=== PATIENT | male | born 1935 | race Caucasian/White ===

== ENCOUNTER 2017-06-19 07:28 | Inpatient (IN) | payer MEDICARE, OTHER ==
[~2017-06-19] VITALS: Ht 175.3 cm; Wt 90.8 kg
[2017-06-19] VITALS (8 sets, daily range): BP systolic 139–196; BP diastolic 66–110; PULSE 54–102; RESP 18–21; TEMP 97.5–97.9; O2SAT 95–97
[2017-06-19] MEDS ORDERED: ASPI-516 CHEW (07:47)
[2017-06-19] MEDS ORDERED: SPIR25TA PO (07:47)
[2017-06-19] MEDS ORDERED: SIMV20TA PO (07:47)
[2017-06-19] MEDS ORDERED: METO25TA3 PO (07:47)
[2017-06-19] MEDS ORDERED: METF500T PO (07:47)
[2017-06-19] MEDS ORDERED: BENI5TAB4 PO (07:48)
--- NOTE | 2017-06-19 08:11 | PD ---
HPI Chief Complaint: General Weakness Time Seen by Provider: 08:05 Travel History International Travel<30 days: No Contact w/Intl Traveler<30days: No Traveled to known affect area: No History of Present Illness HPI Patient presents to the emergency department complaining of "terrible night and could not sleep or breathe last night." Patient has sleep apnea but does not like the mask so he has not been using his CPAP machine. He denies fever, chills, nausea, vomiting, chest pain, edema. He reports a productive cough of white phlegm for "weeks." Also reporting shortness of breath. PFSH Past Medical History Cardiomyopathy: Yes Diabetes: Yes Patient Takes Glucophage: Yes (METFORMIN) Medical other: Yes (ENLARGED PROSTATE) Sleep Apnea: Yes Tetanus Vaccination: < 5 Years Past Surgical History Other Surgery: Yes (L EYE SX ) Social History Alcohol Use: Yes Tobacco Use: No Substance Use: No Allergies-Medications (Allergen,Severity, Reaction): Coded Allergies: lisinopril (Verified Allergy, Intermediate, Cough, 06/19/17) pioglitazone (Verified Allergy, Intermediate, Cough, 06/19/17) bee venom protein (honey bee) (Verified Allergy, Unknown, 06/19/17) Uncoded Allergies: ANT BITES (Adverse Reaction, Intermediate, 06/19/17) Reported Meds & Prescriptions Reported Meds & Active Scripts Active Reported Benicar (Olmesartan) 5 Mg Tab 5 Mg PO BID Spironolactone 25 Mg Tab 12.5 Mg PO DAILY Simvastatin 20 Mg Tab 20 Mg PO DAILY Metoprolol Tartrate 25 Mg Tab 12.5 Mg PO BID Metformin (Metformin HCl) 500 Mg Tab 500 Mg PO BIDPC Aspirin 81 Mg Chew 81 Mg CHEW DAILY Review of Systems Except as stated in HPI: all other systems reviewed are Neg Physical Exam Narrative GENERAL: No acute distress. SKIN: Focused skin assessment warm/dry. HEAD: Atraumatic. Normocephalic. EYES: Extra ocular muscles intact bilaterally.. No scleral icterus. No injection or drainage. ENT: No nasal bleeding or discharge. Mucous membranes pink and moist. NECK: Trachea midline. No JVD. CARDIOVASCULAR: Irreg rate and rhythm. No murmur appreciated. RESPIRATORY: No accessory muscle use. Coarse breath sounds upper lung gaona bilaterally. Breath sounds equal bilaterally. GASTROINTESTINAL: Abdomen soft, non-tender, nondistended. Hepatic and splenic margins not palpable. MUSCULOSKELETAL: No obvious deformities. No clubbing. No cyanosis. No edema. NEUROLOGICAL: Awake and alert. No obvious cranial nerve deficits. Motor grossly within normal limits. Normal speech. PSYCHIATRIC: Appropriate mood and affect; insight and judgment normal. Data Data Last Documented VS Vital Signs Date Time Temp Pulse Resp B/P (MAP) Pulse Ox O2 Delivery O2 Flow Rate FiO2 06/19/17 10:41 91 21 177/80 (112) 97 Nasal Cannula 2.00 06/19/17 07:38 97.7 Orders Orders Complete Blood Count With Diff (06/19/17 08:05) Comprehensive Metabolic Panel (06/19/17 08:05) B-Type Natriuretic Peptide (06/19/17 08:05) Act Partial Throm Time (Ptt) (06/19/17 08:05) Prothrombin Time / Inr (Pt) (06/19/17 08:05) Magnesium (Mg) (06/19/17 08:05) Ckmb (Isoenzyme) Profile (06/19/17 08:05) Troponin I (06/19/17 08:05) Iv Access Insert/Monitor (06/19/17 08:05) Electrocardiogram (06/19/17 08:05) Ecg Monitoring (06/19/17 08:05) Oximetry (06/19/17 08:05) Oxygen Administration (06/19/17 08:05) Chest, Single Ap (06/19/17 08:05) Sodium Chloride 0.9% Flush (Ns Flush) (06/19/17 08:15) D-Dimer (06/19/17 08:11) Labs Laboratory Tests Test 06/19/17 08:00 White Blood Count 10.4 TH/MM3 Red Blood Count 4.82 MIL/MM3 Hemoglobin 15.1 GM/DL Hematocrit 44.9 % Mean Corpuscular Volume 93.3 FL Mean Corpuscular Hemoglobin 31.3 PG Mean Corpuscular Hemoglobin Concent 33.5 % Red Cell Distribution Width 14.1 % Platelet Count 286 TH/MM3 Mean Platelet Volume 7.5 FL Neutrophils (%) (Auto) 67.7 % Lymphocytes (%) (Auto) 21.2 % Monocytes (%) (Auto) 7.2 % Eosinophils (%) (Auto) 3.0 % Basophils (%) (Auto) 0.9 % Neutrophils # (Auto) 7.1 TH/MM3 Lymphocytes # (Auto) 2.2 TH/MM3 Monocytes # (Auto) 0.8 TH/MM3 Eosinophils # (Auto) 0.3 TH/MM3 Basophils # (Auto) 0.1 TH/MM3 CBC Comment DIFF FINAL Differential Comment Prothrombin Time 10.0 SEC Prothromb Time International Ratio 1.0 RATIO Activated Partial Thromboplast Time 25.7 SEC D-Dimer Quantitative (PE/DVT) 0.31 MG/L FEU Blood Urea Nitrogen 30 MG/DL Creatinine 1.07 MG/DL Random Glucose 142 MG/DL Total Protein 7.1 GM/DL Albumin 3.5 GM/DL Calcium Level 9.0 MG/DL Magnesium Level 2.0 MG/DL Alkaline Phosphatase 141 U/L Aspartate Amino Transf (AST/SGOT) 21 U/L Alanine Aminotransferase (ALT/SGPT) 85 U/L Total Bilirubin 0.4 MG/DL Sodium Level 138 MEQ/L Potassium Level 5.0 MEQ/L Chloride Level 107 MEQ/L Carbon Dioxide Level 22.4 MEQ/L Anion Gap 9 MEQ/L Estimat Glomerular Filtration Rate 66 ML/MIN Total Creatine Kinase 38 U/L Troponin I LESS THAN 0.02 NG/ML B-Type Natriuretic Peptide 131 PG/ML MDM Medical Decision Making Medical Screen Exam Complete: Yes Emergency Medical Condition: Yes Interpretation(s) EKG: Sinus rhythm, PVCs, rate 91, right bundle branch block, right axis deviation Labs: Normal d-dimer, normal CBC, normal troponin, elevated BNP and BUN and ALT and alk phos Last Impressions Chest X-Ray 06/19/17 0805 Signed Impressions: Service Date/Time: June 08:51 - CONCLUSION: 1. Minimal basal atelectasis or scarring. No active disease. Mildly tortuous aorta. Alexys Aleman MD Differential Diagnosis Pulmonary edema, ACS, CHF, pneumonia, electrolyte abnormality, dysrhythmia, Narrative Course Patient presents to the emergency department complaining of difficulty breathing inability to sleep. Will check labs, chest x-ray, EKG. 1107: Patient will be admitted for dyspnea and also runs of V. tach in the emergency department that resolved spontaneously. Malu Barrett MD June 19, 2017 08:11
[2017-06-19] MEDS ORDERED: SODIUM CHLORIDE 0.9% FLUSH 10 ML FLUSH IVF PRN (08:15)
[2017-06-19 08:23] LABS: AUTOMATED NEUTROPHIL # 7.1 TH/MM3 (1.8-7.7); BASOPHIL # 0.1 TH/MM3 (0-0.2); BASOPHIL % 0.9 % (0.0-2.0); EOSINOPHIL # 0.3 TH/MM3 (0-0.4); HEMATOCRIT 44.9 % (39.0-51.0); HEMOGLOBIN 15.1 GM/DL (13.0-17.0); LYMPH % 21.2 % (9.0-44.0); LYMPHOCYTE # 2.2 TH/MM3 (1.0-4.8); MEAN CELL VOLUME 93.3 FL (80.0-100.0); MEAN CORPUSCULAR HEMOGLOBIN 31.3 PG (27.0-34.0); MEAN CORPUSCULAR HGB CONC 33.5 % (32.0-36.0); MEAN PLATELET VOLUME 7.5 FL (7.0-11.0); MONO % 7.2 % (0.0-8.0); MONOCYTE # 0.8 TH/MM3 (0-0.9); NEUT % 67.7 % (16.0-70.0); PLATELET COUNT 286 TH/MM3 (150-450); RED BLOOD COUNT 4.82 MIL/MM3 (4.50-5.90); RED CELL DISTRIBUTION WIDTH 14.1 % (11.6-17.2); WHITE BLOOD COUNT 10.4 TH/MM3 (4.0-11.0)
[2017-06-19 08:45] LABS: ALBUMIN 3.5 GM/DL (3.4-5.0); ALKALINE PHOSPHATASE 141 U/L (45-117); ALT (GPT) 85 U/L (12-78); AST (GOT) 21 U/L (15-37); BICARBONATE 22.4 MEQ/L (21.0-32.0); BLOOD UREA NITROGEN 30 MG/DL (7-18); CHLORIDE 107 MEQ/L (98-107); CREATININE 1.07 MG/DL (0.60-1.30); GLOMERULAR FILTRATION RATE 66 ML/MIN (>89); GLUCOSE,RANDOM 142 MG/DL (74-106); SODIUM (NA) 138 MEQ/L (136-145); TOTAL BILIRUBIN ADULT 0.4 MG/DL (0.2-1.0); TROPONIN I LESS THAN 0.02 NG/ML (0.02-0.05)
[2017-06-19 08:50] LABS: TOTAL PROTEIN 7.1 GM/DL (6.4-8.2)
--- NOTE | 2017-06-19 09:12 | RADRPT ---
EXAM DATE/TIME: 06/19/2017 08:51 [facility] COMPARISON: No previous studies available for comparison. INDICATIONS : Short of breath and difficulty breathing. MEDICAL HISTORY : None. SURGICAL HISTORY : None. ENCOUNTER: Initial ACUITY: 3 weeks PAIN SCORE: 0/10 LOCATION: Bilateral chest FINDINGS: A single view of the chest demonstrates the lungs to be symmetrically aerated without evidence of mas s, infiltrate or effusion. Minimal basal atelectasis. The cardiomediastinal contours are unremarkabl e. Osseous structures are intact. CONCLUSION: 1. Minimal basal atelectasis or scarring. No active disease. Mildly tortuous aorta. Alexys Aleman MD on June 19, 2017 at 9:09 Board Certified Radiologist. This report was verified electronically.
--- NOTE | 2017-06-19 12:12 | HHI.HP ---
[facility] Primary Care Physician Nghia Thomas MD Admission Diagnosis Dyspnea, Intermittent Vent Tachy Diagnoses: Chief Complaint: sob Travel History International Travel<30 Days: No Contact w/Intl Traveler <30 Da: No Traveled to Known Affected Are: No History of Present Illness This is an 82/M with h/o cardiomyopathy, COPD, DM, HTN, ? Cardiomyopathy and sleep apnea presenting with acute SOB. Per patient, he has not been feeling well since March and has been noticing lack of energy and chronic shortness of breath. He just moved from [place] over the winter to [place] and subsequently moved to [facility] last week. While he was in [place], he had multiple doctor visits done including with a record press supervisor who never came into a diagnostic conclusion but he was told that he has cardiomyopathy, COPD and sleep apnea. He has poor compliance with his CPAP. He has been chronically short of breath however last night, he was more short of breath than usual. There was no note of chest pain, dizziness, lightheadedness, fever, chills or sick contacts. He has a chronic cough which has not changed productive with white sputum. There is no bilateral lower extremity edema. He got better last night but this morning when he woke up, he became more short of breath again hence he decided to go to the hospital. There was still no note of chest pain or any other symptoms. While at the emergency department around 8 AM, patient was found to have nonsustained ventricular tachycardia on telemetry, patient was asymptomatic. Review of Systems ROS Limitations: Other (All other pertinent systems were reviewed and are negative.) Past Family Social History Past Medical History BPH Cardiomyopathy COPD Sleep apnea Macular degeneration on OU DM HTN Past Surgical History L eye surgery Reported Medications Benicar (Olmesartan) 5 Mg Tab 5 Mg PO BID Spironolactone 25 Mg Tab 12.5 Mg PO DAILY Simvastatin 20 Mg Tab 20 Mg PO DAILY Metoprolol Tartrate 25 Mg Tab 12.5 Mg PO BID Metformin (Metformin HCl) 500 Mg Tab 500 Mg PO BIDPC Aspirin 81 Mg Chew 81 Mg CHEW DAILY Allergies: Coded Allergies: lisinopril (Verified Allergy, Intermediate, Cough, 06/19/17) pioglitazone (Verified Allergy, Intermediate, Cough, 06/19/17) bee venom protein (honey bee) (Verified Allergy, Unknown, 06/19/17) Uncoded Allergies: ANT BITES (Adverse Reaction, Intermediate, 06/19/17) Family History Parents both had diabetes Social History Social drinker. Smoked 2 packs a day for 20 years, stopped smoking 30 years ago. Physical Exam Vital Signs Vital Signs Date Time Temp Pulse Resp B/P (MAP) Pulse Ox O2 Delivery O2 Flow Rate FiO2 06/19/17 10:41 91 21 177/80 (112) 97 Nasal Cannula 2.00 06/19/17 08:07 97 Room Air 06/19/17 08:07 97 Room Air 06/19/17 07:38 97.7 75 19 196/89 (124) 97 185/110 (135) Physical Exam GENERAL: Not in acute distress, well-nourished. Appears weak. EYES: PERRL, full EOMs, no jaundice, nonicteric, pink conjunctivae without injection, moist mucosa ENT:Airway patent. NECK: Trachea midline, no mass, no obvious thyromegaly. CARDIOVASCULAR: Regular rate and irregular rhythm without murmurs, gallops, or rubs. RESPIRATORY: Decreased breath sounds on both bases and occasional crackles, no wheezing. GASTROINTESTINAL: Abdomen soft, normal bowel sounds, non-tender, nondistended. Obese. MUSCULOSKELETAL: Extremities without clubbing, cyanosis, or edema. No edema. NEUROLOGICAL: Awake, alert, oriented 3. No obvious cranial nerve deficits. Moves all 4 extremities, muscle strength testing 5 over 5. Motor and sensory grossly within normal limits. .Supple neck, no meningeal signs. Grossly negative cerebellar examination. No focal neurologic deficits. Laboratory Laboratory Tests Test 06/19/17 08:00 White Blood Count 10.4 Red Blood Count 4.82 Hemoglobin 15.1 Hematocrit 44.9 Mean Corpuscular Volume 93.3 Mean Corpuscular Hemoglobin 31.3 Mean Corpuscular Hemoglobin Concent 33.5 Red Cell Distribution Width 14.1 Platelet Count 286 Mean Platelet Volume 7.5 Neutrophils (%) (Auto) 67.7 Lymphocytes (%) (Auto) 21.2 Monocytes (%) (Auto) 7.2 Eosinophils (%) (Auto) 3.0 Basophils (%) (Auto) 0.9 Neutrophils # (Auto) 7.1 Lymphocytes # (Auto) 2.2 Monocytes # (Auto) 0.8 Eosinophils # (Auto) 0.3 Basophils # (Auto) 0.1 CBC Comment DIFF FINAL Differential Comment Prothrombin Time 10.0 Prothromb Time International Ratio 1.0 Activated Partial Thromboplast Time 25.7 D-Dimer Quantitative (PE/DVT) 0.31 Blood Urea Nitrogen 30 Creatinine 1.07 Random Glucose 142 Total Protein 7.1 Albumin 3.5 Calcium Level 9.0 Magnesium Level 2.0 Alkaline Phosphatase 141 Aspartate Amino Transf (AST/SGOT) 21 Alanine Aminotransferase (ALT/SGPT) 85 Total Bilirubin 0.4 Sodium Level 138 Potassium Level 5.0 Chloride Level 107 Carbon Dioxide Level 22.4 Anion Gap 9 Estimat Glomerular Filtration Rate 66 Total Creatine Kinase 38 Troponin I LESS THAN 0.02 B-Type Natriuretic Peptide 131 Result Diagram: 06/19/17 0800 06/19/17 08 Imaging Last Impressions Chest X-Ray 06/19/17804 Signed Impressions: Service Date/Time: June 08:51 - CONCLUSION: 1. Minimal basal atelectasis or scarring. No active disease. Mildly tortuous aorta. Alexys Aleman MD Caprini VTE Risk Assessment Caprini VTE Risk Assessment: Mod/High Risk (score >= 2) Caprini Risk Assessment Model Point Value = 1 Point Value = 2 Point Value = 3 Point Value = 5 Age 41-60 Minor surgery BMI > 25 kg/m2 Swollen legs Varicose veins or History of unexplained or recurrent spontaneous Oral contraceptives or hormone replacement Sepsis (< 1 month) Serious lung disease, including pneumonia (< 1 month) Abnormal pulmonary function Acute myocardial infarction Congestive heart failure (< 1 month) History of inflammatory bowel disease Medical patient at bed rest Age 61-74 Arthroscopic surgery Major open surgery (> 45 min) Laparoscopic surgery (> 45 min) Malignancy Confined to bed (> 72 hours) Immobilizing plaster cast Central venous access Age >= 75 History of VTE Family history of VTE Factor V Leiden Prothrombin [id number] Lupus anticoagulant Anticardiolipin antibodies Elevated serum homocysteine Heparin-induced thrombocytopenia Other congenital or acquired thrombophilia Stroke (< 1 month) Elective arthroplasty Hip, pelvis, or leg fracture Acute spinal cord injury (< 1 month) Prophylaxis Regimen Total Risk Factor Score Risk Level Prophylaxis Regimen 0-1 Low Early ambulation 2 Moderate Order ONE of the following: *Sequential Compression Device (SCD) *Heparin 5000 units SQ BID 3-4 Higher Order ONE of the following medications: *Heparin 5000 units SQ TID *Enoxaparin/Lovenox 40 mg SQ daily (WT < 150 kg, CrCl > 30 mL/min) *Enoxaparin/Lovenox 30 mg SQ daily (WT < 150 kg, CrCl > 10-29 mL/min) *Enoxaparin/Lovenox 30 mg SQ BID (WT < 150 kg, CrCl > 30 mL/min) AND/OR *Sequential Compression Device (SCD) 5 or more Highest Order ONE of the following medications: *Heparin 5000 units SQ TID (Preferred with Epidurals) *Enoxaparin/Lovenox 40 mg SQ daily (WT < 150 kg, CrCl > 30 mL/min) *Enoxaparin/Lovenox 30 mg SQ daily (WT < 150 kg, CrCl > 10-29 mL/min) *Enoxaparin/Lovenox 30 mg SQ BID (WT < 150 kg, CrCl > 30 mL/min) AND *Sequential Compression Device (SCD) Assessment and Plan Assessment and Plan This is an 82-year-old male with history of cardiomyopathy, COPD, sleep apnea, diabetes mellitus, hypertension presenting with shortness of breath Hypoxic respiratory failure possibly secondary to flash pulmonary edema-no wheezing on exam, no treatments given. Mild BNP elevation, bilateral crackles on examination in the background of history of cardiomyopathy. Chest x-ray showed bilateral atelectasis, personally read shows possible mild congestion. Continue oxygen supplementation, start Lasix, further diagnostics for cardiomyopathy, check echocardiogram. Restart metoprolol, spironolactone and aspirin. Reviewed CBC and BMP, repeat BMP tomorrow. First troponin is negative , d-dimer is negative. Frequent PVCs,? Ventricular tachycardia-telemetry reveals ventricular tachycardia, EKG done showed sinus rhythm with very frequent PVCs. Restart metoprolol, check troponin and EKG 2, consult cardiology. Hypertension, uncontrolled-restart metoprolol, olmesartan, Vasotec as needed intravenously Diabetes mellitus-restart metformin, sliding scale insulin. DVT prophylaxis: Shad Myers MD June 19, 2017 12:12
[2017-06-19] MEDS ORDERED: ONDANSETRON ODT 4 MG TAB PO PRN (12:30)
[2017-06-19] MEDS ORDERED: NALOXONE HCL 0.4 MG/ML AMP IV PUSH PRN (12:30)
[2017-06-19] MEDS ORDERED: SODIUM CHLORIDE 0.9% FLUSH 10 ML FLUSH IV FLUSH PRN (12:30)
[2017-06-19] MEDS ORDERED: MAGNESIUM HYDROXIDE SUSP 30 ML CUP PO PRN (13:00)
[2017-06-19] MEDS ORDERED: SENNOSIDES 8.6 MG TAB PO PRN (13:00)
[2017-06-19] MEDS ORDERED: LACTULOSE SYRUP 20 GM/30 ML CUP PO PRN (13:00)
[2017-06-19] MEDS ORDERED: ACETAMINOPHEN 325 MG TAB PO PRN (13:00)
[2017-06-19] MEDS ORDERED: BISACODYL 10 MG SUPP RECTAL PRN (13:00)
[2017-06-19] MEDS ORDERED: PILL SPLITTER OTHER PRN (13:15)
[2017-06-19] MEDS ORDERED: DEXTROSE 50% IN WATER 50 ML VIAL(D50) IV PUSH PRN (13:30)
[2017-06-19] MEDS ORDERED: GLUCAGON 1 MG/ML VIAL OTHER PRN (13:30)
[2017-06-19] MEDS ORDERED: ENALAPRILAT 1.25 MG/ML VIAL IV PUSH PRN (13:30)
[2017-06-19] MEDS: METOPROLOL TARTRATE 25 MG TAB PO SCH ×2 (13:32→22:03)
[2017-06-19] MEDS: ASPIRIN 81 MG CHEW TAB CHEW SCH (13:32)
[2017-06-19] MEDS: LOSARTAN 25 MG TAB PO SCH ×2 (13:32→22:03)
[2017-06-19] MEDS: ENOXAPARIN SODIUM 30 MG/0.3 ML SYRINGE SQ SCH (13:32)
[2017-06-19] MEDS: SPIRONOLACTONE 25 MG TAB PO SCH (14:26)
[2017-06-19] MEDS: FUROSEMIDE 20 MG/2 ML VIAL IV PUSH SCH ×2 (14:26→17:38)
[2017-06-19] MEDS: metFORMIN HCL 500 MG TAB PO SCH (17:40)
[2017-06-19] MEDS: INSULIN ASPART SUPPLEMENTAL SCALE SQ SCH ×2 (17:41→21:00)
--- NOTE | 2017-06-19 19:08 | EKG ---
Date Performed: 06/19/2017 Time Performed: 07:44:28 PTAGE: 82 years EKG: Sinus rhythm WITH FREQUENT VENTRICULAR PREMATURE COMPLEXES WITH FREQUENT SUPRAVENTRICULAR PREMATURE COMPLEXES MAR KED RIGHT AXIS DEVIATION RIGHT BUNDLE BRANCH BLOCK ABNORMAL ECG NO PREVIOUS TRACING DOCTOR: Robe Barrera Interpretating Date/Time 06/19/2017 19:06:47
[2017-06-19] MEDS: DOCUSATE SODIUM 50 MG/SENNA 8.6 MG TAB PO SCH (22:03)
[2017-06-19] MEDS: TEMAZEPAM 15 MG CAP PO PRN (22:03)
[2017-06-19] MEDS: SODIUM CHLORIDE 0.9% FLUSH 10 ML FLUSH IV FLUSH SCH (22:04)
[2017-06-20] VITALS (14 sets, daily range): BP systolic 111–145; BP diastolic 57–79; PULSE 54–114; RESP 18; TEMP 97.3–98; O2SAT 92–98
[2017-06-20 07:05] LABS: AUTOMATED NEUTROPHIL # 5.3 TH/MM3 (1.8-7.7); BASOPHIL # 0.1 TH/MM3 (0-0.2); BASOPHIL % 0.9 % (0.0-2.0); EOSINOPHIL # 0.5 TH/MM3 (0-0.4); EOSINOPHIL % 6.3 % (0.0-4.0); HEMATOCRIT 46.6 % (39.0-51.0); HEMOGLOBIN 16.1 GM/DL (13.0-17.0); MEAN CORPUSCULAR HEMOGLOBIN 32.4 PG (27.0-34.0); MEAN CORPUSCULAR HGB CONC 34.5 % (32.0-36.0); MEAN PLATELET VOLUME 7.8 FL (7.0-11.0); MONO % 8.2 % (0.0-8.0); MONOCYTE # 0.7 TH/MM3 (0-0.9); NEUT % 61.6 % (16.0-70.0); PLATELET COUNT 293 TH/MM3 (150-450); RED BLOOD COUNT 4.96 MIL/MM3 (4.50-5.90); RED CELL DISTRIBUTION WIDTH 14.2 % (11.6-17.2); WHITE BLOOD COUNT 8.7 TH/MM3 (4.0-11.0)
[2017-06-20 07:34] LABS: BICARBONATE 25.2 MEQ/L (21.0-32.0); CALCIUM 8.9 MG/DL (8.5-10.1); CREATININE 1.23 MG/DL (0.60-1.30)
[2017-06-20] MEDS: FUROSEMIDE 20 MG/2 ML VIAL IV PUSH SCH ×2 (08:43→17:22)
[2017-06-20] MEDS: INSULIN ASPART SUPPLEMENTAL SCALE SQ SCH ×4 (08:44→21:25)
[2017-06-20] MEDS: metFORMIN HCL 500 MG TAB PO SCH ×2 (08:44→17:22)
[2017-06-20] MEDS: DOCUSATE SODIUM 50 MG/SENNA 8.6 MG TAB PO SCH ×2 (08:44→21:24)
[2017-06-20] MEDS: ASPIRIN 81 MG CHEW TAB CHEW SCH (08:45)
[2017-06-20] MEDS: LOSARTAN 25 MG TAB PO SCH ×2 (08:47→21:24)
[2017-06-20] MEDS: METOPROLOL TARTRATE 25 MG TAB PO SCH ×2 (08:48→21:24)
[2017-06-20] MEDS: SPIRONOLACTONE 25 MG TAB PO SCH (08:49)
[2017-06-20] MEDS: PRAVASTATIN SOD 40 MG TAB PO SCH (08:49)
[2017-06-20] MEDS: SODIUM CHLORIDE 0.9% FLUSH 10 ML FLUSH IV FLUSH SCH ×2 (08:51→21:24)
--- NOTE | 2017-06-20 10:05 | PD.CARD.PN ---
Subjective Subjective Remarks c/o weakness and fatigue and dyspnea Objective Medications Current Medications Medications (Trade) Dose Ordered Sig/Vladimir Route Start Time Stop Time Status Last Admin (NS Flush) 2 ml UNSCH PRN IVF 06/19/17 08:15 (NS Flush) 2 ml UNSCH PRN IV FLUSH 06/19/17 12:30 (NS Flush) 2 ml BID IV FLUSH 06/19/17 21:00 06/20/17 08:51 (Tylenol) 650 mg Q4H PRN PO 06/19/17 13:00 (Zofran Odt) 4 mg Q6H PRN PO 06/19/17 12:30 (Restoril) 15 mg HS PRN PO 06/19/17 13:00 06/19/17 22:03 (Lovenox Inj) 30 mg Q24H SQ 06/19/17 14:00 06/19/17 13:32 (Narcan Inj) 0.4 mg UNSCH PRN IV PUSH 06/19/17 12:30 (Roxanna-Colace) 1 tab BID PO 06/19/17 21:00 06/19/17 22:03 (Milk Of Magnesia Liq) 30 ml Q12H PRN PO 06/19/17 13:00 (Senokot) 17.2 mg Q12H PRN PO 06/19/17 13:00 (Dulcolax Supp) 10 mg DAILY PRN RECTAL 06/19/17 13:00 (Lactulose Liq) 30 ml DAILY PRN PO 06/19/17 13:00 (Aspirin Chew) 81 mg DAILY CHEW 06/19/17 13:00 06/20/17 08:45 (Glucophage) 500 mg BIDPC PO 06/19/17 18:00 06/20/17 08:44 (Lopressor) 12.5 mg BID PO 06/19/17 12:30 06/20/17 08:48 (Aldactone) 12.5 mg DAILY PO 06/19/17 13:00 06/20/17 08:49 (Cozaar) 25 mg BID PO 06/19/17 12:30 06/20/17 08:47 (Pravachol) 40 mg DAILY PO 06/20/17 09:00 06/20/17 08:49 (Pill Splitter) 1 ea UNSCH PRN OTHER 06/19/17 13:15 (D50w (Vial) Inj) 50 ml UNSCH PRN IV PUSH 06/19/17 13:30 (Glucagon Inj) 1 mg UNSCH PRN OTHER 06/19/17 13:30 (NovoLOG SUPPLEMENTAL SCALE) 1 ACHS SLIDING SCALE SQ 06/19/17 17:00 06/20/17 08:44 (Lasix Inj) 20 mg BID@,18 IV PUSH 06/19/17 14:00 06/20/17 08:43 (Vasotec Inj) 1.25 mg Q6H PRN IV PUSH 06/19/17 13:30 Vital Signs / I&O Vital Signs Date Time Temp Pulse Resp B/P (MAP) Pulse Ox O2 Delivery O2 Flow Rate FiO2 06/20/17 08:08 97.3 66 18 142/71 (94) 96 06/20/17 08:06 112 06/20/17 08:00 78 06/20/17 04:30 97.9 81 18 145/79 (101) 95 06/20/17 04:00 93 06/20/17 00:00 65 06/19/17 23:28 97.9 54 18 148/73 (98) 96 06/19/17 20:25 97.5 56 18 139/66 (90) 96 06/19/17 19:30 102 06/19/17 16:08 97.6 78 18 143/82 (102) 96 06/19/17 15:13 06/19/17 14:44 95 21 168/88 (114) 95 Nasal Cannula 3.00 06/19/17 10:41 91 21 177/80 (112) 97 Nasal Cannula 2.00 I/O 06/19/17 06/19/17 06/19/17 06/20/17 06/20/17 06/20/17 07:00 15:00 23:00 07:00 15:00 23:00 Intake Total 240 ml 120 ml Balance 240 ml 120 ml Intake Oral 240 ml 120 ml # Voids 1 2 3 # Bowel Movements 0 Physical Exam GENERAL: SKIN: Warm and dry. HEAD: Normocephalic. EYES: No scleral icterus. No injection or drainage. NECK: Supple, trachea midline. No JVD or lymphadenopathy. CARDIOVASCULAR: Regular rate and rhythm without murmurs, gallops, or rubs. RESPIRATORY: Breath sounds equal bilaterally. No accessory muscle use. GASTROINTESTINAL: Abdomen soft, non-tender, nondistended. MUSCULOSKELETAL: No cyanosis, or edema. BACK: Nontender without obvious deformity. No CVA tenderness. Laboratory Laboratory Tests Test 06/19/17 12:40 06/19/17 19:02 06/20/17 06:13 Troponin I 0.02 NG/ML 0.02 NG/ML White Blood Count 8.7 TH/MM3 Red Blood Count 4.96 MIL/MM3 Hemoglobin 16.1 GM/DL Hematocrit 46.6 % Mean Corpuscular Volume 94.0 FL Mean Corpuscular Hemoglobin 32.4 PG Mean Corpuscular Hemoglobin Concent 34.5 % Red Cell Distribution Width 14.2 % Platelet Count 293 TH/MM3 Mean Platelet Volume 7.8 FL Neutrophils (%) (Auto) 61.6 % Lymphocytes (%) (Auto) 23.0 % Monocytes (%) (Auto) 8.2 % Eosinophils (%) (Auto) 6.3 % Basophils (%) (Auto) 0.9 % Neutrophils # (Auto) 5.3 TH/MM3 Lymphocytes # (Auto) 2.0 TH/MM3 Monocytes # (Auto) 0.7 TH/MM3 Eosinophils # (Auto) 0.5 TH/MM3 Basophils # (Auto) 0.1 TH/MM3 CBC Comment DIFF FINAL Differential Comment Blood Urea Nitrogen 38 MG/DL Creatinine 1.23 MG/DL Random Glucose 144 MG/DL Calcium Level 8.9 MG/DL Sodium Level 142 MEQ/L Potassium Level 4.5 MEQ/L Chloride Level 106 MEQ/L Carbon Dioxide Level 25.2 MEQ/L Anion Gap 11 MEQ/L Estimat Glomerular Filtration Rate 56 ML/MIN B-Type Natriuretic Peptide 189 PG/ML Assessment and Plan Problem List: (1) Cardiomyopathy ICD Codes: I42.9 - Cardiomyopathy, unspecified (2) CHF (congestive heart failure) ICD Codes: I50.9 - Heart failure, unspecified (3) Hypoxia ICD Codes: R09.02 - Hypoxemia (4) Dyspnea ICD Codes: R06.00 - Dyspnea, unspecified (5) HTN (hypertension) ICD Codes: I10 - Essential (primary) hypertension (6) Weakness ICD Codes: R53.1 - Weakness (7) Fatigue ICD Codes: R53.83 - Other fatigue Assessment and Plan 1.) Cardiomyopathy - minimally elevated bnp, hypoxia and dyspnea appear disproportionate to degree of chf suggesting pulmonary etiology to his hypoxia and dyspnea, continue metoprolol, losartan, lasix, f/u bnp; i ordered v/q scan last night but not done, attempted to inform charge nurse @ 8:15 am but she was not available Max Garcia MD June 20, 2017 10:05
--- NOTE | 2017-06-20 10:57 | RADRPT ---
EXAM DATE/TIME: 06/20/2017 09:35 [facility] COMPARISON: No previous studies available for comparison. INDICATIONS : Dyspnea. DOSE: 8.6 mCi Tc99m MAA IV 0.8 mCi Tc99m DTPA aerosol MEDICAL HISTORY : Chronic obstructive pulmonary disease. Diabetes mellitus type 2. Congestive heart failure. Hypertensi on. SURGICAL HISTORY : None. ENCOUNTER: Initial ACUITY: 1 day PAIN SCALE: 0/10 LOCATION: chest TECHNIQUE: Following five minutes of tidal breathing of DTPA aerosol, planar images of the lungs were performed in eight projections. The patient was then injected with MAA, and eight-view perfusion scan was perf ormed. FINDINGS: There is a slightly heterogeneous pattern of aerosol delivery to the periphery of both lungs. No foc al ventilatory defects are seen. The perfusion lung scan demonstrates a homogenous pattern of uptake in both lungs with minimal blunti ng of the costophrenic angles. No segmental or subsegmental defects are seen. CONCLUSION: 1. Low probability for pulmonary embolus. Alexys Aleman MD on June 20, 2017 at 10:54 Board Certified Radiologist. This report was verified electronically.
[2017-06-20] MEDS: ENOXAPARIN SODIUM 30 MG/0.3 ML SYRINGE SQ SCH (13:12)
[2017-06-20] MEDS ORDERED: KLOR20TA3 PO (15:41)
[2017-06-20] MEDS ORDERED: FURO1TAB60 PO (15:41)
[2017-06-20] MEDS ORDERED: PRAV40TA PO (15:41)
--- NOTE | 2017-06-20 15:48 | HHI.PR ---
Subjective Remarks Nursing denies any deterioration since last night. Patient himself says he still feels short of breath intermittently while resting. Was asking for DuoNeb treatments. Says he has a history of congestive heart failure, does not remember the exact name of the last hospital he was hospitalized. Objective Vital Signs Date Time Temp Pulse Resp B/P (MAP) Pulse Ox O2 Delivery O2 Flow Rate FiO2 06/20/17 13:00 98 Nasal Cannula 3.00 06/20/17 12:08 97.6 67 18 120/57 (78) 98 06/20/17 12:00 114 06/20/17 08:08 97.3 66 18 142/71 (94) 96 06/20/17 08:06 112 06/20/17 08:00 78 06/20/17 04:30 97.9 81 18 145/79 (101) 95 06/20/17 04:00 93 06/20/17 00:00 65 06/19/17 23:28 97.9 54 18 148/73 (98) 96 06/19/17 20:25 97.5 56 18 139/66 (90) 96 06/19/17 19:30 102 06/19/17 16:08 97.6 78 18 143/82 (102) 96 I/O 06/19/17 06/19/17 06/19/17 06/20/17 06/20/17 06/20/17 07:00 15:00 23:00 07:00 15:00 23:00 Intake Total 240 ml 120 ml Balance 240 ml 120 ml Intake Oral 240 ml 120 ml # Voids 1 2 3 # Bowel Movements 0 Result Diagram: 06/20/1761206/20/17612 Objective Remarks Clear breath sounds bilaterally, unlabored breathing, wearing nasal cannula No lower extremity edema, heart sounds regular rate rhythm, no murmurs A/P Assessment and Plan This is an 82-year-old male with history of cardiomyopathy, COPD, sleep apnea, diabetes mellitus, hypertension presenting with shortness of breath Hypoxic respiratory failure possibly secondary to flash pulmonary edema-no wheezing on exam, no treatments given. Mild BNP elevation, bilateral crackles on examination in the background of history of cardiomyopathy. Chest x-ray showed bilateral atelectasis, personally read shows possible mild congestion. Continue oxygen supplementation, start Lasix, further diagnostics for cardiomyopathy, echocardiogram pending. Restart metoprolol, spironolactone and aspirin. Troponins have been negative. Frequent PVCs,? Ventricular tachycardia-telemetry reveals ventricular tachycardia, EKG done showed sinus rhythm with very frequent PVCs. Cardiology consult appreciated. Discussed with cardiology, may consider catheterizing the patient given the persistent intermittent arrhythmia. Hypertension, uncontrolled-restart metoprolol, olmesartan, Vasotec as needed intravenously Diabetes mellitus-restart metformin, sliding scale insulin. DVT prophylaxis: Zoëx Franc Heredia MD June 20, 2017 15:47
--- NOTE | 2017-06-20 17:32 | ECHRPT ---
Indication: Cardiomyopathy, unspecified CONCLUSIONS The left ventricular systolic function is mildly reduced with an estimated ejection fraction in the range of 45- 55%. Dyssynchrony noted. normal left ventricular size. Wall thickness is mildly increased. The left atrial size is mildly dilated. The aortic root and proximal ascending aorta are not well visualized. Trace mitral valve regurgitation. Cannot exclude prolapse. Mild sclerosis. There is mild tricuspid valve regurgitation. There is no pericardial effusion. BP: / HR: Rhythm: MEASUREMENTS (Male / Female) Normal Values Technical Quality:Fair 2D ECHO LV Diastolic Diameter PLAX 4.3 cm 4.2 - 5.9 / 3.9 - 5.3 cm LV Systolic Diameter PLAX 3.2 cm IVS Diastolic Thickness 1.2 cm 0.6 - 1.0 / 0.6 - 0.9 cm LVPW Diastolic Thickness 1.3 cm 0.6 - 1.0 / 0.6 - 0.9 cm LV Relative Wall Thickness 0.6 RV Internal Dim ED PLAX 3.2 cm M-MODE Aortic Root Diameter MM 3.5 cm LA Systolic Diameter MM 4.8 cm LA Ao Ratio MM 1.4 AV Cusp Separation MM 1.8 cm DOPPLER MV Area PHT 5.1 cm Mitral E Point Velocity 65.2 cm/s Mitral A Point Velocity 102.0 cm/s Mitral E to A Ratio 0.6 LV E' Septal Velocity 5.0 cm/s Mitral E to LV E' Septal Ratio 13.1 TR Peak Velocity 220.3 cm/s TR Peak Gradient 19.4 mmHg Right Atrial Pressure 10.0 mmHg Pulmonary Artery Systolic Pressu 29.4 mmHg Right Ventricular Systolic Press 29.4 mmHg FINDINGS LEFT VENTRICLE The left ventricular systolic function is mildly reduced with an estimated ejection fraction in the range of 45- 55%. Dyssynchrony noted. normal left ventricular size. Wall thickness is mildly increased. RIGHT VENTRICLE Normal right ventricular size and systolic function. LEFT ATRIUM The left atrial size is mildly dilated. RIGHT ATRIUM The right atrial size is normal. ATRIAL SEPTUM Normal atrial septal thickness without atrial level shunting by limited color doppler interrogation. AORTA The aortic root and proximal ascending aorta are not well visualized. MITRAL VALVE Trace mitral valve regurgitation. Cannot exclude prolapse. AORTIC VALVE Trileaflet aortic valve. No aortic valve stenosis or regurgitation. Mild sclerosis. TRICUSPID VALVE There is mild tricuspid valve regurgitation. PULMONARY VALVE No pulmonary valve regurgitation or stenosis. PERICARDIUM There is no pericardial effusion. Robe Barrera MD (Electronically Signed) Final Date:20 Jun 2017 17:31
[2017-06-20] MEDS: TEMAZEPAM 15 MG CAP PO PRN (21:24)
[2017-06-21] VITALS (13 sets, daily range): BP systolic 109–138; BP diastolic 57–82; PULSE 58–141; RESP 17–18; TEMP 97.2–97.9; O2SAT 92–98
[2017-06-21] MEDS: INSULIN ASPART SUPPLEMENTAL SCALE SQ SCH ×4 (08:00→21:58)
--- NOTE | 2017-06-21 08:39 | EKG ---
Date Performed: 06/19/2017 Time Performed: 17:55:14 PTAGE: 82 years EKG: Sinus rhythm PACS MARKED RIGHT AXIS DEVIATION RIGHT BUNDLE BRANCH BLOCK ABNORMAL ECG PREVIOUS TRACING : 06/19/2017 12.37 DOCTOR: Aakash Black Interpretating Date/Time 06/21/2017 08:36:30
[2017-06-21] MEDS: DOCUSATE SODIUM 50 MG/SENNA 8.6 MG TAB PO SCH ×2 (08:43→21:00)
[2017-06-21] MEDS: METOPROLOL TARTRATE 25 MG TAB PO SCH ×2 (08:44→21:57)
[2017-06-21] MEDS: PRAVASTATIN SOD 40 MG TAB PO SCH (08:44)
[2017-06-21] MEDS: ASPIRIN 81 MG CHEW TAB CHEW SCH (08:44)
[2017-06-21] MEDS: SPIRONOLACTONE 25 MG TAB PO SCH (08:44)
[2017-06-21] MEDS: metFORMIN HCL 500 MG TAB PO SCH ×2 (08:45→17:59)
[2017-06-21] MEDS: LOSARTAN 25 MG TAB PO SCH ×2 (08:45→21:57)
[2017-06-21] MEDS: FUROSEMIDE 20 MG/2 ML VIAL IV PUSH SCH ×2 (08:47→17:59)
--- NOTE | 2017-06-21 08:48 | EKG ---
Date Performed: 06/19/2017 Time Performed: 12:37:53 PTAGE: 82 years EKG: IRREGULAR RHYTHM WITH RAPID VENTRICULAR RESPONSE WITH VENTRICULAR PREMATURE COMPLEXES MARKE D RIGHT AXIS DEVIATION RIGHT BUNDLE BRANCH BLOCK ABNORMAL ECG PREVIOUS TRACING : 06/19/2017 07.44 DOCTOR: Aakash Black Interpretating Date/Time 06/21/2017 08:44:11
[2017-06-21] MEDS: SODIUM CHLORIDE 0.9% FLUSH 10 ML FLUSH IV FLUSH SCH ×2 (08:51→21:00)
--- NOTE | 2017-06-21 12:06 | PD.CARD.PN ---
Subjective Subjective Remarks c/o weakness and fatigue and dyspnea Objective Medications Current Medications Medications (Trade) Dose Ordered Sig/Vladimir Route Start Time Stop Time Status Last Admin (NS Flush) 2 ml UNSCH PRN IV FLUSH 06/19/17 12:30 (NS Flush) 2 ml BID IV FLUSH 06/19/17 21:00 06/21/17 08:51 (Tylenol) 650 mg Q4H PRN PO 06/19/17 13:00 (Zofran Odt) 4 mg Q6H PRN PO 06/19/17 12:30 (Restoril) 15 mg HS PRN PO 06/19/17 13:00 06/20/17 21:24 (Lovenox Inj) 30 mg Q24H SQ 06/19/17 14:00 06/20/17 13:12 (Narcan Inj) 0.4 mg UNSCH PRN IV PUSH 06/19/17 12:30 (Roxanna-Colace) 1 tab BID PO 06/19/17 21:00 06/21/17 08:43 (Milk Of Magnesia Liq) 30 ml Q12H PRN PO 06/19/17 13:00 (Senokot) 17.2 mg Q12H PRN PO 06/19/17 13:00 (Dulcolax Supp) 10 mg DAILY PRN RECTAL 06/19/17 13:00 (Lactulose Liq) 30 ml DAILY PRN PO 06/19/17 13:00 (Aspirin Chew) 81 mg DAILY CHEW 06/19/17 13:00 06/21/17 08:44 (Glucophage) 500 mg BIDPC PO 06/19/17 18:00 06/21/17 08:45 (Lopressor) 12.5 mg BID PO 06/19/17 12:30 06/21/17 08:44 (Aldactone) 12.5 mg DAILY PO 06/19/17 13:00 06/21/17 08:44 (Cozaar) 25 mg BID PO 06/19/17 12:30 06/21/17 08:45 (Pravachol) 40 mg DAILY PO 06/20/17 09:00 06/21/17 08:44 (Pill Splitter) 1 ea UNSCH PRN OTHER 06/19/17 13:15 (D50w (Vial) Inj) 50 ml UNSCH PRN IV PUSH 06/19/17 13:30 (Glucagon Inj) 1 mg UNSCH PRN OTHER 06/19/17 13:30 (NovoLOG SUPPLEMENTAL SCALE) 1 ACHS SLIDING SCALE SQ 06/19/17 17:00 06/21/17 11:59 (Lasix Inj) 20 mg BID@,18 IV PUSH 06/19/17 14:00 06/21/17 08:47 (Vasotec Inj) 1.25 mg Q6H PRN IV PUSH 06/19/17 13:30 (Albuterol Neb) 1.25 mg Q6HR NEB PRN NEB 06/20/17 16:15 Vital Signs / I&O Vital Signs Date Time Temp Pulse Resp B/P (MAP) Pulse Ox O2 Delivery O2 Flow Rate FiO2 06/21/17 08:08 97.2 80 17 138/72 (94) 92 06/21/17 04:32 97.9 61 18 119/82 (94) 94 06/21/17 04:00 86 06/21/17 00:00 96 06/20/17 23:15 97.7 59 18 111/63 (79) 92 06/20/17 20:12 98.0 54 18 127/59 (81) 92 06/20/17 20:00 105 06/20/17 16:08 97.6 65 18 124/65 (84) 95 06/20/17 16:00 105 06/20/17 13:00 98 Nasal Cannula 3.00 06/20/17 12:08 97.6 67 18 120/57 (78) 98 I/O 06/20/17 06/20/17 06/20/17 06/21/17 06/21/17 06/21/17 07:00 15:00 23:00 07:00 15:00 23:00 Intake Total 120 ml 600 ml 360 ml Balance 120 ml 600 ml 360 ml Intake Oral 120 ml 600 ml 360 ml # Voids 3 3 3 # Bowel Movements 0 0 0 Physical Exam GENERAL: SKIN: Warm and dry. HEAD: Normocephalic. EYES: No scleral icterus. No injection or drainage. NECK: Supple, trachea midline. No JVD or lymphadenopathy. CARDIOVASCULAR: Regular rate and rhythm without murmurs, gallops, or rubs. RESPIRATORY: Breath sounds equal bilaterally. No accessory muscle use. GASTROINTESTINAL: Abdomen soft, non-tender, nondistended. MUSCULOSKELETAL: No cyanosis, or edema. BACK: Nontender without obvious deformity. No CVA tenderness. Laboratory Laboratory Tests Test 06/21/17 04:42 B-Type Natriuretic Peptide 51 PG/ML Assessment and Plan Problem List: (1) Cardiomyopathy ICD Codes: I42.9 - Cardiomyopathy, unspecified (2) CHF (congestive heart failure) ICD Codes: I50.9 - Heart failure, unspecified (3) Hypoxia ICD Codes: R09.02 - Hypoxemia (4) Dyspnea ICD Codes: R06.00 - Dyspnea, unspecified (5) HTN (hypertension) ICD Codes: I10 - Essential (primary) hypertension (6) Weakness ICD Codes: R53.1 - Weakness (7) Fatigue ICD Codes: R53.83 - Other fatigue Assessment and Plan 1.) Cardiomyopathy - bnp wnl, hypoxia and dyspnea appear disproportionate to degree of chf suggesting pulmonary etiology to his hypoxia and dyspnea, continue metoprolol, losartan, lasix, f/u bnp; v/q scan negative, 2.) Ventricular ectopy - d/w Dr Heredia 06/20/17, dyspnea possibly due to ventricular ectopy, plan rhc/c 06/23/17, patient agrees Max Garcia MD June 21, 2017 12:06
--- NOTE | 2017-06-21 13:34 | HHI.PR ---
Subjective Remarks Pt feels very tired. Complains of SOB and states "I loose my breath". Pt falls asleep at times when I speak w him but easily arousable. spoke w Pt's daughter. Cheri ([phone]) in [place], who tells me that in mar he had sudden onset severe lethargy. Pt in general is very active, in dec, drove his RV from [place] to [place] on his own. Has lots of energy, compliant w his meds. Pretty independent in managing his care. Per daughter, pt did see a forensic psychiatrist in may, got PFTs but doesn't know results, he was supposed to get a sleep study but didn't do it as he wasn't feeling well. Per daughter he has a hx of sleep apnea- non compliant w CPAP due to not tolerating mask. Pt was recently treated for bronchitis, end of may. Per daughter pt's tiredness has been off and on since the day after the super bowl in mar. Pt saw a pulm and front services agent in [facility] (saw cards for bradycardia, was taken off atenolol) then was restarted on lopressor 12.5mg BID but pt would only take it once a day. Objective Vitals Vital Signs Date Time Temp Pulse Resp B/P (MAP) Pulse Ox O2 Delivery O2 Flow Rate FiO2 06/21/17 08:08 97.2 80 17 138/72 (94) 92 06/21/17 04:32 97.9 61 18 119/82 (94) 94 06/21/17 04:00 86 06/21/17 00:00 96 06/20/17 23:15 97.7 59 18 111/63 (79) 92 06/20/17 20:12 98.0 54 18 127/59 (81) 92 06/20/17 20:00 105 06/20/17 16:08 97.6 65 18 124/65 (84) 95 06/20/17 16:00 105 I/O 06/20/17 06/20/17 06/20/17 06/21/17 06/21/17 06/21/17 07:00 15:00 23:00 07:00 15:00 23:00 Intake Total 120 ml 600 ml 360 ml Balance 120 ml 600 ml 360 ml Intake Oral 120 ml 600 ml 360 ml # Voids 3 3 3 # Bowel Movements 0 0 0 Result Diagram: 06/20/1713 06/20/17612 Imaging Last Impressions Chest X-Ray 06/19/17804 Signed Impressions: Service Date/Time: June 08:51 - CONCLUSION: 1. Minimal basal atelectasis or scarring. No active disease. Mildly tortuous aorta. Alexys Aleman MD Lung Scan-V Nuclear Medicine 06/19/17 0000 Signed Impressions: Service Date/Time: Tuesday, June 20, 2017 09:35 - CONCLUSION: 1. Low probability for pulmonary embolus. Alexys Aleman MD Objective Remarks GENERAL: appears tired, fatigued CARDIOVASCULAR: rrr without murmurs. RESPIRATORY: Decreased breath sounds on both bases, no wheezing. GASTROINTESTINAL: Abdomen soft, normal bowel sounds, non-tender, nondistended. MUSCULOSKELETAL: Extremities without edema. No edema. NEUROLOGICAL: Awake, alert, oriented 3. No obvious cranial nerve deficits. Moves all 4 extremities, muscle strength testing 5 over 5. Motor and sensory grossly within normal limits. .Supple neck, no meningeal signs. Grossly negative cerebellar examination. No focal neurologic deficits. A/P Assessment and Plan This is an 82-year-old male with history of cardiomyopathy, COPD, sleep apnea, diabetes mellitus, hypertension presenting with shortness of breath and fatigue Hypoxic respiratory failure possibly secondary to flash pulmonary edema-no wheezing on exam, no treatments given. Mild BNP elevation which has now resolved, Chest x-ray showed bilateral atelectasis. Continue oxygen supplementation, on IV Lasix, further diagnostics for cardiomyopathy, ECHO shows EF 45-55%. on metoprolol, spironolactone and aspirin. d-dimer is negative, V/Q scan low prob. Frequent PVCs, Ventricular tachycardia-telemetry reveals ventricular tachycardia , EKG done showed sinus rhythm with very frequent PVCs. on metoprolol, CE neg, cards following. Hypertension, uncontrolled- on metoprolol, olmesartan, Vasotec as needed intravenously Diabetes mellitus- on metformin, sliding scale insulin. DVT prophylaxis: Lovenox I will be checking TSH/T4/B12 levels. Daughter also wondering if mono could be r/o. I also explained to daughter if pt hasn't been compliant w his CPAP, his sleep apnea could be contributing to his tiredness. He will be establishing w Dr. Thomas at the [facility] upon discharged (has yet seen him or established care there as he recently moved in the area). He does need to f/u w pulata for repeat sleep study Discharge Planning cardiac cath scheduled for friday. fu labwork Zina Cha MD June 21, 2017 13:34
[2017-06-21] MEDS: ENOXAPARIN SODIUM 30 MG/0.3 ML SYRINGE SQ SCH (14:40)
[2017-06-21] MEDS: RESP: ALBUTEROL 1.25 MG/3 ML NEB (PRN) NEB (17:08)
[2017-06-21 17:57] LABS: MONOSCREEN NEG (NEG)
[2017-06-21 18:02] LABS: FREE T4 1.24 NG/DL (0.76-1.46)
[2017-06-21] MEDS ORDERED: METFORMIN HOLD POST IV CONTRAST SCH (19:45)
[2017-06-21] MEDS ORDERED: IOHEXOL 350 MG/ML 10 ML VIAL (for RAD DIAG) IVCONTRAST ONE (19:46)
--- NOTE | 2017-06-21 19:57 | RADRPT ---
EXAM DATE/TIME: 06/21/2017 19:39 [facility] COMPARISON: No previous studies available for comparison. INDICATIONS : Dyspnea IV CONTRAST: 70 cc Omnipaque 350 (iohexol) IV RADIATION DOSE: 9.59 CTDIvol (mGy) MEDICAL HISTORY : Cardiovascular disease. Hypertension. Diabetes mellitus type 2. SURGICAL HISTORY : None. ENCOUNTER: Initial ACUITY: 1 day PAIN SCALE: 0/10 LOCATION: chest TECHNIQUE: Volumetric scanning of the chest was performed. Using automated exposure control and adjustment of t he mA and/or kV according to patient size, radiation dose was kept as low as reasonably achievable to obtain optimal diagnostic quality images. DICOM format image data is available electronically for review and comparison. Follow-up recommendations for detected pulmonary nodules are based at a minimum on nodule size and pa tient risk factors according to Fleischner Society Guidelines. FINDINGS: LUNGS: There is central lobar emphysema bilaterally. 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 This could be an acute or chronic basis. The left lung is grossly clear. PLEURA: There is no pleural thickening or pleural effusion. MEDIASTINUM: The heart and great vessels demonstrate no acute abnormality. There is no mediastinal or hilar lymph adenopathy. AXILLAE: Within normal limits. No lymphadenopathy. SKELETAL: Within normal limits for patient age. MISCELLANEOUS: The visualized upper abdominal organs demonstrate no acute abnormality. There is a 2.9 cm cyst in the right lobe of the liver. There are some renal cysts on the right side. There is a 1.5 cm right adren al mass. This is most likely an adrenal adenoma. CONCLUSION: 1. Central lobar emphysema characteristic for COPD. 2. Nonspecific interstitial infiltrate involving the posterior right lower lung. This can be an acute or chronic basis. There no prior studies comparison. 3. 1.5 cm right adrenal mass most likely an adrenal adenoma. 4. Hepatic and right sided renal cysts. Leonides Platt MD on June 21, 2017 at 19:51 Board Certified Radiologist. This report was verified electronically.
[2017-06-21 21:21] LABS: CREATININE 1.75 MG/DL (0.60-1.30)
[2017-06-21] MEDS: TEMAZEPAM 15 MG CAP PO PRN (21:59)
[2017-06-22] VITALS (12 sets, daily range): BP systolic 94–156; BP diastolic 58–84; PULSE 59–131; RESP 17–20; TEMP 97–97.9; O2SAT 95–98
[2017-06-22] MEDS: DOCUSATE SODIUM 50 MG/SENNA 8.6 MG TAB PO SCH ×2 (08:15→20:46)
[2017-06-22] MEDS: LOSARTAN 25 MG TAB PO SCH (08:15)
[2017-06-22] MEDS: ASPIRIN 81 MG CHEW TAB CHEW SCH (08:15)
[2017-06-22] MEDS: PRAVASTATIN SOD 40 MG TAB PO SCH (08:15)
[2017-06-22] MEDS: SPIRONOLACTONE 25 MG TAB PO SCH (08:15)
[2017-06-22] MEDS: METOPROLOL TARTRATE 25 MG TAB PO SCH ×2 (08:15→20:45)
[2017-06-22] MEDS: FUROSEMIDE 20 MG/2 ML VIAL IV PUSH SCH (08:16)
[2017-06-22] MEDS: SODIUM CHLORIDE 0.9% FLUSH 10 ML FLUSH IV FLUSH SCH ×2 (09:00→20:46)
[2017-06-22] MEDS ORDERED: SODIUM CHLOR 0.9% 250 ML INJ 250 ML IV ONE (09:30)
[2017-06-22] MEDS: INSULIN ASPART SUPPLEMENTAL SCALE SQ SCH ×4 (09:45→20:46)
--- NOTE | 2017-06-22 10:32 | HHI.PR ---
Subjective Remarks Nursing reports that since last night the patient had been about on 4 L when he got short of breath with good saturations but at this time the patient was noted to be lying in bed. Nursing also reports that he saw the patient ambulating around the nursing station without any oxygen on and without any acute distress. is concerned that the patient does not move around much at home and would like for him to be more motivated for moving around. Objective Vital Signs Date Time Temp Pulse Resp B/P (MAP) Pulse Ox O2 Delivery O2 Flow Rate FiO2 06/22/17 08:08 97.2 59 19 106/82 (90) 98 06/22/17 04:04 131 06/22/17 04:00 97.8 61 18 94/59 (71) 95 06/22/17 00:04 106 06/22/17 00:00 97.9 65 17 98/58 (71) 96 06/21/17 21:10 115 06/21/17 20:00 97.4 59 18 110/62 (78) 94 06/21/17 19:30 97 Nasal Cannula 4.00 06/21/17 17:15 98 Nasal Cannula 4.00 06/21/17 16:08 97.3 64 18 114/60 (78) 97 06/21/17 16:00 141 06/21/17 13:33 Nasal Cannula 2.00 06/21/17 12:08 97.4 58 18 109/57 (74) 97 06/21/17 12:00 120 I/O 06/21/17 06/21/17 06/21/17 06/22/17 06/22/17 06/22/17 07:00 15:00 23:00 07:00 15:00 23:00 Intake Total 360 ml 0 ml 240 ml Output Total 600 ml Balance 360 ml -600 ml 240 ml Intake Oral 360 ml 0 ml 240 ml Output Urine Total 600 ml # Voids 3 4 # Bowel Movements 0 0 0 Result Diagram: 06/20/17 0613 06/21/17 2745 Objective Remarks Heart sounds are regular rate rhythm, no murmurs, clear lungs bilaterally, unlabored breathing, lying in bed, wearing nasal cannula A/P Assessment and Plan This is an 82-year-old male with history of cardiomyopathy, COPD, sleep apnea, diabetes mellitus, hypertension presenting with shortness of breath and fatigue Hypoxic respiratory failure likely 2/2 pulm edema superimposed on chronic bronchitis -Improving since admission, will consider a home walk test -CT chest from yesterday negative for any PE, just shows chronic bronchitis findings, ordering pro calcitonin to see if bacterial infection is likely imminent but clinically is not -Hold further diuresis given SYEDA -Duo nebs as needed for wheezing -See treatment below for congestive heart failure Acute kidney injury -Likely may have been secondary to diuresis since BMP results came before contrast dye was infused -We will hold IV diuretics, give small normal saline bolus Tachyarrhythmia -PVCs with possible PACs, discussed cardiology, will consider catheterizing patient in a.m. tomorrow, will minimize albuterol treatments if not warranted as this could exacerbate his tachyarrhythmias Mild systolic chronic heart failure -Continue home metoprolol aspirin, hold Aldactone in light of SYEDA ECHO shows EF 45-55%. Hypertension, uncontrolled- on metoprolol, holding ARB given SYEDA Diabetes mellitus- on metformin, sliding scale insulin. DVT prophylaxis: Franc Vega MD June 22, 2017 10:32
[2017-06-22 11:29] LABS: CALCIUM 8.8 MG/DL (8.5-10.1); CREATININE 1.84 MG/DL (0.60-1.30)
[2017-06-22] MEDS: ENOXAPARIN SODIUM 30 MG/0.3 ML SYRINGE SQ SCH (13:43)
--- NOTE | 2017-06-22 14:55 | MB ---
cc: Max Garcia MD DATE: 06/19/2017 HISTORY OF PRESENT ILLNESS: is a very pleasant 82-year-old gentleman with history of cardiomyopathy. He has had 2 catheterizations in the last 10 years, most recently a year ago, which did not show any significant coronary artery disease. He has recently moved here and is staying at [facility]. He is referred for evaluation of severe dyspnea. Currently, he is still complaining of dyspnea. Apparently, he also has orthopnea. Otherwise, denies chest pain, fever, chills, cough, GI, , bleeding, pain. PAST MEDICAL HISTORY: Includes cardiomyopathy, diabetes mellitus, prostate enlargement, sleep apnea, left eye surgery. SOCIAL HISTORY: Drinks alcohol, denies tobacco use. ALLERGIES: LISINOPRIL, PIOGLITAZONE, BEE VENOM. MEDICATIONS PRIOR TO ADMISSION: Benicar 5 mg b.i.d., spironolactone 25 mg daily, simvastatin 20 mg daily, metoprolol 12.5 mg p.o. b.i.d., metformin 500 b.i.d. p.o., aspirin 81 mg daily. MEDICATIONS IN THE HOSPITAL: Pravastatin 40 mg daily, metformin 500 b.i.d., Lovenox 30 subcutaneous q. 24 hours, Lasix 20 mg IV b.i.d., aspirin 81 mg daily, Aldactone 12.5 mg daily, metoprolol 12.5 mg b.i.d., losartan 25 mg b.i.d. PHYSICAL EXAMINATION: VITAL SIGNS: Blood pressure on admission was 196/89, repeat was 185/110, current blood pressure 143/82, pulse 78, respiratory rate 18, temperature 97.6, sats 96% on 3 liters nasal cannula. GENERAL: He is alert and oriented x3, in no acute distress. NECK: Supple. No JVD. No bruit. CARDIOVASCULAR: S1, S2. No murmurs, rubs, gallops. PULMONARY: Lungs clear to auscultation bilaterally. ABDOMEN: Soft, nontender, nondistended, positive bowel sounds. EXTREMITIES: No lower extremity edema. LABORATORY DATA: Chest x-ray shows minimal basal atelectasis or scarring, no active disease, mildly tortuous aorta. EKG shows normal sinus rhythm with PACs, right bundle branch block, left anterior fascicular block, PVCs, repeat EKG shows normal sinus rhythm with frequent PVCs, corrected QT interval of 460 milliseconds, and the third EKG; normal sinus rhythm at 75 beats per minute, right bundle branch block, left anterior fascicular block and PACs. LABORATORY DATA: White count 10.4, hemoglobin 15.1, hematocrit 44.9, platelet count 286. INR 1.0. Sodium 138, potassium 5.0, chloride 107, bicarbonate 22.4, BUN 30, creatinine 1.07, glucose 142, AST 85, ALT 21. BNP is 131. FINAL DIAGNOSES: 1. Cardiomyopathy. 2. Decompensated congestive heart failure. 3. Elevated liver enzymes. 4. Hyperglycemia. 5. Diabetes mellitus. 6. Severe hypertension. 7. Prostate hypertrophy. 8. Ventricular ectopy. DISCUSSION: At this point in time, it appears that the patient's primary problem is severe hypertension. He has a very mildly elevated BNP and no history of significant coronary disease. Troponins are negative x2. I agree with diuresis. He is on optimal medical therapy. We will continue aspirin, Losartan, Lopressor, Aldactone, Lasix. Follow trends and dyspnea, oxygenation status and BNP. MD SHARON Lee/SHIVAM/grabiel , 07:54 PM , 09:03 PM
--- NOTE | 2017-06-22 19:30 | PD.CARD.PN ---
Subjective Subjective Remarks feels much better, sitting up on edge of bed Objective Medications Current Medications Medications (Trade) Dose Ordered Sig/Vladimir Route Start Time Stop Time Status Last Admin (NS Flush) 2 ml UNSCH PRN IV FLUSH 06/19/17 12:30 (NS Flush) 2 ml BID IV FLUSH 06/19/17 21:00 06/22/17 09:00 (Tylenol) 650 mg Q4H PRN PO 06/19/17 13:00 (Zofran Odt) 4 mg Q6H PRN PO 06/19/17 12:30 (Restoril) 15 mg HS PRN PO 06/19/17 13:00 06/21/17 21:59 (Lovenox Inj) 30 mg Q24H SQ 06/19/17 14:00 06/22/17 13:43 (Narcan Inj) 0.4 mg UNSCH PRN IV PUSH 06/19/17 12:30 (Roxanna-Colace) 1 tab BID PO 06/19/17 21:00 06/22/17 08:15 (Milk Of Magnesia Liq) 30 ml Q12H PRN PO 06/19/17 13:00 (Senokot) 17.2 mg Q12H PRN PO 06/19/17 13:00 (Dulcolax Supp) 10 mg DAILY PRN RECTAL 06/19/17 13:00 (Lactulose Liq) 30 ml DAILY PRN PO 06/19/17 13:00 (Aspirin Chew) 81 mg DAILY CHEW 06/19/17 13:00 06/22/17 08:15 (Lopressor) 12.5 mg BID PO 06/19/17 12:30 06/22/17 08:15 (Aldactone) 12.5 mg DAILY PO 06/19/17 13:00 06/22/17 08:15 (Pravachol) 40 mg DAILY PO 06/20/17 09:00 06/22/17 08:15 (Pill Splitter) 1 ea UNSCH PRN OTHER 06/19/17 13:15 (D50w (Vial) Inj) 50 ml UNSCH PRN IV PUSH 06/19/17 13:30 (Glucagon Inj) 1 mg UNSCH PRN OTHER 06/19/17 13:30 (NovoLOG SUPPLEMENTAL SCALE) 1 ACHS SLIDING SCALE SQ 06/19/17 17:00 06/22/17 13:35 (Albuterol Neb) 1.25 mg Q6HR NEB PRN NEB 06/20/17 16:15 06/21/17 17:08 ([facility]) HOLD METFORMIN FOR... Q24H .XX 06/21/17 19:45 06/23/17 19:45 Vital Signs / I&O Vital Signs Date Time Temp Pulse Resp B/P (MAP) Pulse Ox O2 Delivery O2 Flow Rate FiO2 06/22/17 17:12 98 Nasal Cannula 2.00 06/22/17 16:08 97.0 62 19 104/84 (91) 98 06/22/17 14:07 98 06/22/17 08:08 97.2 59 19 106/82 (90) 98 06/22/17 04:04 131 06/22/17 04:00 97.8 61 18 94/59 (71) 95 06/22/17 00:04 106 06/22/17 00:00 97.9 65 17 98/58 (71) 96 06/21/17 21:10 115 06/21/17 20:00 97.4 59 18 110/62 (78) 94 06/21/17 19:30 97 Nasal Cannula 4.00 I/O 06/21/17 06/21/17 06/21/17 06/22/17 06/22/17 06/22/17 07:00 15:00 23:00 07:00 15:00 23:00 Intake Total 360 ml 0 ml 240 ml 420 ml Output Total 600 ml Balance 360 ml -600 ml 240 ml 420 ml Intake Oral 360 ml 0 ml 240 ml 420 ml Output Urine Total 600 ml # Voids 3 4 6 # Bowel Movements 0 0 0 1 Physical Exam GENERAL: SKIN: Warm and dry. HEAD: Normocephalic. EYES: No scleral icterus. No injection or drainage. NECK: Supple, trachea midline. No JVD or lymphadenopathy. CARDIOVASCULAR: Regular rate and rhythm without murmurs, gallops, or rubs. RESPIRATORY: Breath sounds equal bilaterally. No accessory muscle use. GASTROINTESTINAL: Abdomen soft, non-tender, nondistended. MUSCULOSKELETAL: No cyanosis, or edema. BACK: Nontender without obvious deformity. No CVA tenderness. Laboratory Laboratory Tests Test 06/22/17 10:54 Blood Urea Nitrogen 61 MG/DL Creatinine 1.84 MG/DL Random Glucose 316 MG/DL Calcium Level 8.8 MG/DL Sodium Level 139 MEQ/L Potassium Level 4.9 MEQ/L Chloride Level 105 MEQ/L Carbon Dioxide Level 24.0 MEQ/L Anion Gap 10 MEQ/L Estimat Glomerular Filtration Rate 35 ML/MIN Procalcitonin 0.13 ng/mL Assessment and Plan Problem List: (1) Cardiomyopathy ICD Codes: I42.9 - Cardiomyopathy, unspecified (2) CHF (congestive heart failure) ICD Codes: I50.9 - Heart failure, unspecified (3) Hypoxia ICD Codes: R09.02 - Hypoxemia (4) Dyspnea ICD Codes: R06.00 - Dyspnea, unspecified (5) HTN (hypertension) ICD Codes: I10 - Essential (primary) hypertension (6) Weakness ICD Codes: R53.1 - Weakness (7) Fatigue ICD Codes: R53.83 - Other fatigue Assessment and Plan 1.) Cardiomyopathy - bnp wnl, hypoxia and dyspnea appear disproportionate to degree of chf suggesting pulmonary etiology to his hypoxia and dyspnea, cta showing cpod and infiltrate, continue metoprolol, losartan, lasix, f/u bnp; v/ q scan negative, 2.) Ventricular ectopy - d/w Dr Heredia 06/20/17, dyspnea possibly due to ventricular ectopy, plan rhc/lhc 06/23/17, patient agrees 3.) ARF - consult renal, cancel cath grant if creatinine not at baseline Max Garcia MD June 22, 2017 19:30
[2017-06-22] MEDS: TEMAZEPAM 15 MG CAP PO PRN (20:46)
[2017-06-23] VITALS (7 sets, daily range): BP systolic 102–126; BP diastolic 56–85; PULSE 60–124; RESP 17–19; TEMP 97.3–97.7; O2SAT 94–97
[2017-06-23 06:59] LABS: HEMATOCRIT 48.6 % (39.0-51.0); HEMOGLOBIN 16.6 GM/DL (13.0-17.0); MEAN CORPUSCULAR HEMOGLOBIN 32.2 PG (27.0-34.0); MEAN CORPUSCULAR HGB CONC 34.2 % (32.0-36.0); MEAN PLATELET VOLUME 7.7 FL (7.0-11.0); PLATELET COUNT 270 TH/MM3 (150-450); RED BLOOD COUNT 5.17 MIL/MM3 (4.50-5.90); RED CELL DISTRIBUTION WIDTH 14.1 % (11.6-17.2); WHITE BLOOD COUNT 9.4 TH/MM3 (4.0-11.0)
[2017-06-23 07:36] LABS: BICARBONATE 25.1 MEQ/L (21.0-32.0); CALCIUM 9.2 MG/DL (8.5-10.1); CREATININE 1.7 MG/DL (0.60-1.30); MAGNESIUM 2.5 MG/DL (1.5-2.5)
[2017-06-23] MEDS: INSULIN ASPART SUPPLEMENTAL SCALE SQ SCH ×4 (08:00→23:03)
[2017-06-23] MEDS: SODIUM CHLORIDE 0.9% FLUSH 10 ML FLUSH IV FLUSH SCH ×2 (08:33→23:04)
[2017-06-23] MEDS: SPIRONOLACTONE 25 MG TAB PO SCH (09:00)
--- NOTE | 2017-06-23 09:36 | PD.CONS ---
[facility] Service Nephrology Consult Requested By Dr. Garcia Reason for Consult Acute kidney injury Primary Care Physician Nghia Thomas MD History of Present Illness Patient is a 82 male with past medical history of diabetes, chronic obstructive pulmonary disease, history of cardiomyopathy, hyperlipidemia, BPH, and sleep apnea. Presents to Emergency room with acute shortness of breath. Nephrology is consulted for elevated creatinine of 1.70 today which is down from yesterday at 1.84. On admission creatinine was normal at 1.07. Does not have any previous history of kidney disease. The elevated started about 48 hours after receiving IV contrast so most likely contrast induced SYEDA. He is noted to have elevated troponin and is scheduled for heart catheterization today. (Chantal Coppola) Review of Systems Respiratory: COMPLAINS OF: Shortness of breath Cardiovascular: DENIES: Chest pain, Lower Extremity Edema Gastrointestinal: DENIES: Diarrhea, Nausea, Vomiting Genitourinary: DENIES: Hematuria, Dysuria (Chantal Coppola) Past Family Social History Allergies: Coded Allergies: lisinopril (Verified Allergy, Intermediate, Cough, 06/19/17) pioglitazone (Verified Allergy, Intermediate, Cough, 06/19/17) bee venom protein (honey bee) (Verified Allergy, Unknown, 06/19/17) Uncoded Allergies: ANT BITES (Adverse Reaction, Intermediate, 06/19/17) Past Medical History BPH Cardiomyopathy COPD Sleep apnea Macular degeneration on OU Diabetes Hypertension hyperlipidemia Past Surgical History L eye surgery prostate surgery Active Ordered Medications Current Medications Medications (Trade) Dose Ordered Sig/Vladimir Route Start Time Stop Time Status Last Admin (NS Flush) 2 ml UNSCH PRN IV FLUSH 06/19/17 12:30 (NS Flush) 2 ml BID IV FLUSH 06/19/17 21:00 06/23/17 08:33 (Tylenol) 650 mg Q4H PRN PO 06/19/17 13:00 (Zofran Odt) 4 mg Q6H PRN PO 06/19/17 12:30 (Restoril) 15 mg HS PRN PO 06/19/17 13:00 06/22/17 20:46 (Lovenox Inj) 30 mg Q24H SQ 06/19/17 14:00 06/22/17 13:43 (Narcan Inj) 0.4 mg UNSCH PRN IV PUSH 06/19/17 12:30 (Roxanna-Colace) 1 tab BID PO 06/19/17 21:00 06/22/17 08:15 (Milk Of Magnesia Liq) 30 ml Q12H PRN PO 06/19/17 13:00 (Senokot) 17.2 mg Q12H PRN PO 06/19/17 13:00 (Dulcolax Supp) 10 mg DAILY PRN RECTAL 06/19/17 13:00 (Lactulose Liq) 30 ml DAILY PRN PO 06/19/17 13:00 (Aspirin Chew) 81 mg DAILY CHEW 06/19/17 13:00 06/22/17 08:15 (Lopressor) 12.5 mg BID PO 06/19/17 12:30 06/22/17 20:45 (Aldactone) 12.5 mg DAILY PO 06/19/17 13:00 06/22/17 08:15 (Pravachol) 40 mg DAILY PO 06/20/17 09:00 06/22/17 08:15 (Pill Splitter) 1 ea UNSCH PRN OTHER 06/19/17 13:15 (D50w (Vial) Inj) 50 ml UNSCH PRN IV PUSH 06/19/17 13:30 (Glucagon Inj) 1 mg UNSCH PRN OTHER 06/19/17 13:30 (NovoLOG SUPPLEMENTAL SCALE) 1 ACHS SLIDING SCALE SQ 06/19/17 17:00 06/22/17 20:46 (Albuterol Neb) 1.25 mg Q6HR NEB PRN NEB 06/20/17 16:15 06/21/17 17:08 ([facility] [place] Nursing Information) HOLD METFORMIN FOR... Q24H .XX 06/21/17 19:45 06/23/17 19:45 Family History No history of kidney disease Both parents with diabetes Social History Quit smoking over 30 years ago Drinks alcohol daily 2-3 glasses Lives with (Chantal Coppola) Physical Exam Vital Signs Vital Signs Date Time Temp Pulse Resp B/P (MAP) Pulse Ox O2 Delivery O2 Flow Rate FiO2 06/23/17 08:00 97.4 60 18 114/67 (83) 97 Automatic Cuff 06/23/17 04:00 97.3 109 19 119/85 (96) 94 06/23/17 04:00 103 06/23/17 04:00 Room Air 06/23/17 00:00 97.4 88 17 126/75 (92) 95 06/23/17 00:00 96 06/23/17 00:00 Nasal Cannula 3.00 06/22/17 20:00 Nasal Cannula 3.00 06/22/17 20:00 115 06/22/17 20:00 97.6 101 18 111/73 (86) 96 06/22/17 17:12 98 Nasal Cannula 2.00 06/22/17 16:08 97.0 62 19 104/84 (91) 98 06/22/17 16:00 104 06/22/17 14:07 98 06/22/17 12:00 118 Physical Exam GENERAL: Alert and oriented. RINCON SKIN: Warm and dry. HEAD: Normocephalic. EYES: No scleral icterus. No injection or drainage. NECK: Supple, trachea midline. No JVD or lymphadenopathy. CARDIOVASCULAR: Regular rate and rhythm without murmurs, gallops, or rubs. RESPIRATORY: Breath sounds equal bilaterally. No accessory muscle use. GASTROINTESTINAL: Abdomen soft, non-tender, nondistended. MUSCULOSKELETAL: No cyanosis, or edema. BACK: Nontender without obvious deformity. No CVA tenderness. Laboratory Laboratory Tests Test 06/22/17 10:54 06/23/17 04:55 Blood Urea Nitrogen 61 62 Creatinine 1.84 1.70 Random Glucose 316 158 Calcium Level 8.8 9.2 Sodium Level 139 143 Potassium Level 4.9 4.0 Chloride Level 105 106 Carbon Dioxide Level 24.0 25.1 Anion Gap 10 12 Estimat Glomerular Filtration Rate 35 39 Procalcitonin 0.13 White Blood Count 9.4 Red Blood Count 5.17 Hemoglobin 16.6 Hematocrit 48.6 Mean Corpuscular Volume 94.0 Mean Corpuscular Hemoglobin 32.2 Mean Corpuscular Hemoglobin Concent 34.2 Red Cell Distribution Width 14.1 Platelet Count 270 Mean Platelet Volume 7.7 Magnesium Level 2.5 B-Type Natriuretic Peptide 90 (Chantal Coppola) Result Diagram: 06/23/17 0455 06/23/17 0455 Imaging Last Impressions Chest CT 06/21/17 0000 Signed Impressions: Service Date/Time: Wednesday, June 21, 2017 19:39 - CONCLUSION: 1. Central lobar emphysema characteristic for COPD. 2. Nonspecific interstitial infiltrate involving the posterior right lower lung. This can be an acute or chronic basis. There no prior studies comparison. 3. 1.5 cm right adrenal mass most likely an adrenal adenoma. 4. Hepatic and right sided renal cysts. Leonides Platt MD Chest X-Ray 06/19/17 0805 Signed Impressions: Service Date/Time: June 08:51 - CONCLUSION: 1. Minimal basal atelectasis or scarring. No active disease. Mildly tortuous aorta. Alexys Aleman MD Lung Scan-VQ Nuclear Medicine 06/19/17 0000 Signed Impressions: Service Date/Time: Tuesday, June 20, 2017 09:35 - CONCLUSION: 1. Low probability for pulmonary embolus. Alexys Aleman MD (Chantal Coppola) Assessment and Plan Problem List: (1) Acute kidney injury ICD Codes: N17.9 - Acute kidney failure, unspecified Plan: Acute kidney injury with a creatinine of 1.70 today which is down from yesterday at 1.84. The elevated started about 48 hours after receiving IV contrast so most likely contrast induced SYEDA. Plan Will order renal Ultrasound Urine osmolarity, sodium, and creatinine Continue to hold ARB Patient is scheduled to have heart catheterization recommend to hang IVF NS 12 hours prior to procedure and 12 hours after if patient can tolerate Per cardiology note heart cath will be canceled today if creatinine is not at baseline. (2) HTN (hypertension) ICD Codes: I10 - Essential (primary) hypertension Plan: will controlled (3) Dyspnea ICD Codes: R06.00 - Dyspnea, unspecified Plan: Continues to have shortness of breath (4) CHF (congestive heart failure) ICD Codes: I50.9 - Heart failure, unspecified Plan: Lasix is on hold (Chantal Coppola) Problem List: (1) Acute kidney injury ICD Codes: N17.9 - Acute kidney failure, unspecified Plan: Acute kidney injury with a creatinine of 1.70 today which is down from yesterday at 1.84. The elevated started about 48 hours after receiving IV contrast so most likely contrast induced SYEDA. Plan Will order renal Ultrasound Urine osmolarity, sodium, and creatinine Continue to hold ARB Patient is scheduled to have heart catheterization recommend to hang IVF NS 12 hours prior to procedure and 12 hours after if patient can tolerate Per cardiology note heart cath will be canceled today if creatinine is not at baseline. Patient seen and examined, agree with above. Develop SYEDA, possibly Contrast Nephropathy. Creatinine is slightly better, 1.7. (2) HTN (hypertension) ICD Codes: I10 - Essential (primary) hypertension Plan: will controlled (3) Dyspnea ICD Codes: R06.00 - Dyspnea, unspecified Plan: Continues to have shortness of breath (4) CHF (congestive heart failure) ICD Codes: I50.9 - Heart failure, unspecified Plan: Lasix is on hold (Nevin Olson MD) Chantal Coppola June 23, 2017 09:36 Nevin Olson MD June 23, 2017 22:10
[2017-06-23] MEDS: ASPIRIN 81 MG CHEW TAB CHEW SCH (10:21)
[2017-06-23] MEDS: DOCUSATE SODIUM 50 MG/SENNA 8.6 MG TAB PO SCH ×2 (10:21→21:00)
[2017-06-23] MEDS: PRAVASTATIN SOD 40 MG TAB PO SCH (10:21)
[2017-06-23] MEDS: METOPROLOL TARTRATE 25 MG TAB PO SCH ×2 (10:21→23:02)
[2017-06-23] MEDS: ENOXAPARIN SODIUM 30 MG/0.3 ML SYRINGE SQ SCH (11:34)
--- NOTE | 2017-06-23 11:42 | RADRPT ---
EXAM DATE/TIME: 06/23/2017 11:10 [place] COMPARISON: No previous studies available for comparison. INDICATIONS : Elevated Bun and Creatinine. MEDICAL HISTORY : Cardiovascular disease. Hypertension. Diabetes mellitus type 2. SURGICAL HISTORY : None. ENCOUNTER: Initial ACUITY: 1 day PAIN SCORE: 0/10 LOCATION: Bilateral flank MEASUREMENTS: RIGHT KIDNEY: 11.2 x 5.3 x 6.0 cm LEFT KIDNEY: 12.5 x 5.4 x 5.8 cm FINDINGS: RIGHT KIDNEY: Renal cortex is normal in thickness and echotexture. 3.3 cm cyst. 4.3 cm cyst. 5.9 cm cyst. N o hydronephrosis, stone. LEFT KIDNEY: Renal cortex is normal in thickness and echotexture. 2.4 cm cyst No hydronephrosis, `` stone, or mass. BLADDER: 1.1 cm polypoid mass base of the bladder. CONCLUSION: 1.1 cm polypoid mass base of the bladder. Multiple renal cysts without hydronephrosi s. Cortex reasonably well-preserved. Dayron Bui MD FACR on June 23, 2017 at 11:37 Board Certified Radiologist. This report was verified electronically.
[2017-06-23] MEDS: RESP: ALBUTEROL 1.25 MG/3 ML NEB (PRN) NEB (12:27)
--- NOTE | 2017-06-23 14:02 | HHI.PR ---
Subjective Remarks Nursing denies any deterioration since last night. Patient himself says he still feels short of breath intermittently while resting and truly thinks the DuoNeb treatments help. Objective Vital Signs Date Time Temp Pulse Resp B/P (MAP) Pulse Ox O2 Delivery O2 Flow Rate FiO2 06/23/17 12:30 96 Nasal Cannula 2.00 06/23/17 12:00 108 06/23/17 12:00 97.3 71 18 102/79 (87) 94 06/23/17 10:44 Room Air 06/23/17 08:00 97.4 60 18 114/67 (83) 97 Automatic Cuff 06/23/17 08:00 124 06/23/17 04:00 97.3 109 19 119/85 (96) 94 06/23/17 04:00 103 06/23/17 04:00 Room Air 06/23/17 00:00 97.4 88 17 126/75 (92) 95 06/23/17 00:00 96 06/23/17 00:00 Nasal Cannula 3.00 06/22/17 20:00 Nasal Cannula 3.00 06/22/17 20:00 115 06/22/17 20:00 97.6 101 18 111/73 (86) 96 06/22/17 17:12 98 Nasal Cannula 2.00 06/22/17 16:08 97.0 62 19 104/84 (91) 98 06/22/17 16:00 104 06/22/17 14:07 98 I/O 06/22/17 06/22/17 06/22/17 06/23/17 06/23/17 06/23/17 07:00 15:00 23:00 07:00 15:00 23:00 Intake Total 240 ml 420 ml Balance 240 ml 420 ml Intake Oral 240 ml 420 ml # Voids 4 6 3 # Bowel Movements 0 1 Result Diagram: 06/23/17 0455 06/23/17 0455 Objective Remarks Clear breath sounds bilaterally, unlabored breathing, wearing nasal cannula No lower extremity edema, heart sounds regular rate rhythm, no murmurs Lying in bed, awake, alert, no acute distress A/P Assessment and Plan This is an 82-year-old male with history of cardiomyopathy, COPD, sleep apnea, diabetes mellitus, hypertension presenting with shortness of breath intermittent SOB - now likely 2/2 tachyarrithmia given VQ low to indeterminate probability w/ sats now normalized - also suspect anxiety - acute hypoxic resp failure resolved, only desats in supine position Tachyarrhythmia -PVCs with possible PACs, discussed cardiology, will consider catheterizing patient once Cr has stabilized. Acute kidney injury -Likely may have been secondary to diuresis since BMP results came before contrast dye was infused; nephrology following -We will hold IV diuretics, holding ARB and aldactone Mild chronic systolic chronic heart failure -Continue home metoprolol aspirin, hold Aldactone in light of SYEDA ECHO shows EF 45-55%. Hypertension, uncontrolled- on metoprolol, holding ARB given SYEDA Diabetes mellitus- holding metformin given SYEDA, on sliding scale insulin. Franc Heredia MD June 23, 2017 14:02
--- NOTE | 2017-06-23 19:11 | PD.CARD.PN ---
Subjective Subjective Remarks on O2 in nad, appears lethargic Objective Medications Current Medications Medications (Trade) Dose Ordered Sig/Vladimir Route Start Time Stop Time Status Last Admin (NS Flush) 2 ml UNSCH PRN IV FLUSH 06/19/17 12:30 (NS Flush) 2 ml BID IV FLUSH 06/19/17 21:00 06/23/17 08:33 (Tylenol) 650 mg Q4H PRN PO 06/19/17 13:00 (Zofran Odt) 4 mg Q6H PRN PO 06/19/17 12:30 (Restoril) 15 mg HS PRN PO 06/19/17 13:00 06/22/17 20:46 (Lovenox Inj) 30 mg Q24H SQ 06/19/17 14:00 06/22/17 13:43 (Narcan Inj) 0.4 mg UNSCH PRN IV PUSH 06/19/17 12:30 (Roxanna-Colace) 1 tab BID PO 06/19/17 21:00 06/23/17 10:21 (Milk Of Magnesia Liq) 30 ml Q12H PRN PO 06/19/17 13:00 (Senokot) 17.2 mg Q12H PRN PO 06/19/17 13:00 (Dulcolax Supp) 10 mg DAILY PRN RECTAL 06/19/17 13:00 (Lactulose Liq) 30 ml DAILY PRN PO 06/19/17 13:00 (Aspirin Chew) 81 mg DAILY CHEW 06/19/17 13:00 06/23/17 10:21 (Lopressor) 12.5 mg BID PO 06/19/17 12:30 06/23/17 10:21 (Aldactone) 12.5 mg DAILY PO 06/19/17 13:00 06/22/17 08:15 (Pravachol) 40 mg DAILY PO 06/20/17 09:00 06/23/17 10:21 (Pill Splitter) 1 ea UNSCH PRN OTHER 06/19/17 13:15 (D50w (Vial) Inj) 50 ml UNSCH PRN IV PUSH 06/19/17 13:30 (Glucagon Inj) 1 mg UNSCH PRN OTHER 06/19/17 13:30 (NovoLOG SUPPLEMENTAL SCALE) 1 ACHS SLIDING SCALE SQ 06/19/17 17:00 06/22/17 20:46 (Albuterol Neb) 1.25 mg Q6HR NEB PRN NEB 06/20/17 16:15 06/23/17 12:27 ([facility] [place] Nursing Information) HOLD METFORMIN FOR... Q24H .XX 06/21/17 19:45 06/23/17 19:45 Vital Signs / I&O Vital Signs Date Time Temp Pulse Resp B/P (MAP) Pulse Ox O2 Delivery O2 Flow Rate FiO2 06/23/17 16:00 97.3 61 18 122/61 (81) 95 06/23/17 16:00 111 06/23/17 12:30 96 Nasal Cannula 2.00 06/23/17 12:00 108 06/23/17 12:00 97.3 71 18 102/79 (87) 94 06/23/17 10:44 Room Air 06/23/17 08:00 97.4 60 18 114/67 (83) 97 Automatic Cuff 06/23/17 08:00 124 06/23/17 04:00 97.3 109 19 119/85 (96) 94 06/23/17 04:00 103 06/23/17 04:00 Room Air 06/23/17 00:00 97.4 88 17 126/75 (92) 95 06/23/17 00:00 96 06/23/17 00:00 Nasal Cannula 3.00 06/22/17 20:00 Nasal Cannula 3.00 06/22/17 20:00 115 06/22/17 20:00 97.6 101 18 111/73 (86) 96 I/O 06/22/17 06/22/17 06/22/17 06/23/17 06/23/17 06/23/17 07:00 15:00 23:00 07:00 15:00 23:00 Intake Total 240 ml 420 ml 840 ml Balance 240 ml 420 ml 840 ml Intake Oral 240 ml 420 ml 840 ml # Voids 4 6 3 6 # Bowel Movements 0 1 0 Physical Exam GENERAL: SKIN: Warm and dry. HEAD: Normocephalic. EYES: No scleral icterus. No injection or drainage. NECK: Supple, trachea midline. No JVD or lymphadenopathy. CARDIOVASCULAR: Regular rate and rhythm without murmurs, gallops, or rubs. RESPIRATORY: Breath sounds equal bilaterally. No accessory muscle use. GASTROINTESTINAL: Abdomen soft, non-tender, nondistended. MUSCULOSKELETAL: No cyanosis, or edema. BACK: Nontender without obvious deformity. No CVA tenderness. Laboratory Laboratory Tests Test 06/23/17 04:55 White Blood Count 9.4 TH/MM3 Red Blood Count 5.17 MIL/MM3 Hemoglobin 16.6 GM/DL Hematocrit 48.6 % Mean Corpuscular Volume 94.0 FL Mean Corpuscular Hemoglobin 32.2 PG Mean Corpuscular Hemoglobin Concent 34.2 % Red Cell Distribution Width 14.1 % Platelet Count 270 TH/MM3 Mean Platelet Volume 7.7 FL Blood Urea Nitrogen 62 MG/DL Creatinine 1.70 MG/DL Random Glucose 158 MG/DL Calcium Level 9.2 MG/DL Magnesium Level 2.5 MG/DL Sodium Level 143 MEQ/L Potassium Level 4.0 MEQ/L Chloride Level 106 MEQ/L Carbon Dioxide Level 25.1 MEQ/L Anion Gap 12 MEQ/L Estimat Glomerular Filtration Rate 39 ML/MIN B-Type Natriuretic Peptide 90 PG/ML Imaging Last 24 hours Impressions Renal Ultrasound 06/23/17 0000 Signed Impressions: Service Date/Time: Friday, June 23, 2017 11:10 - CONCLUSION: 1.1 cm polypoid mass base of the bladder. Multiple renal cysts without hydronephrosis. Cortex reasonably well-preserved. Dayron Bui MD FACR Assessment and Plan Problem List: (1) Cardiomyopathy ICD Codes: I42.9 - Cardiomyopathy, unspecified (2) CHF (congestive heart failure) ICD Codes: I50.9 - Heart failure, unspecified (3) Hypoxia ICD Codes: R09.02 - Hypoxemia (4) Dyspnea ICD Codes: R06.00 - Dyspnea, unspecified (5) HTN (hypertension) ICD Codes: I10 - Essential (primary) hypertension (6) Weakness ICD Codes: R53.1 - Weakness (7) Fatigue ICD Codes: R53.83 - Other fatigue Assessment and Plan 1.) Cardiomyopathy - bnp wnl, hypoxia and dyspnea appear disproportionate to degree of chf suggesting pulmonary etiology to his hypoxia and dyspnea, cta showing cpod and infiltrate, continue metoprolol, losartan, lasix, f/u bnp; v/ q scan negative, 2.) Ventricular ectopy - cath canceled due to arf, chest ct suggesting pulmonary etilogy to dyspnea and improvement with bronchodilators; will get EP consult for further assessment 3.) ARF - consult renal, cancel cath grant if creatinine not at baseline 4.) d/w daughter, Cheri, 06/23/17, she is trying to send last cath report; Max Garcia MD June 23, 2017 19:11
[2017-06-23] MEDS: TEMAZEPAM 15 MG CAP PO PRN (23:04)
[2017-06-24] VITALS (7 sets, daily range): BP systolic 98–114; BP diastolic 56–96; PULSE 57–106; RESP 17–18; TEMP 96.5–98.1; O2SAT 95–100
[2017-06-24 06:53] LABS: BICARBONATE 22.8 MEQ/L (21.0-32.0); CALCIUM 8.8 MG/DL (8.5-10.1); CREATININE 1.61 MG/DL (0.60-1.30); MAGNESIUM 2.5 MG/DL (1.5-2.5)
[2017-06-24] MEDS: INSULIN ASPART SUPPLEMENTAL SCALE SQ SCH ×4 (08:00→20:53)
[2017-06-24] MEDS: ASPIRIN 81 MG CHEW TAB CHEW SCH (08:15)
[2017-06-24] MEDS: SPIRONOLACTONE 25 MG TAB PO SCH (08:15)
[2017-06-24] MEDS: SODIUM CHLORIDE 0.9% FLUSH 10 ML FLUSH IV FLUSH SCH ×2 (08:15→20:54)
[2017-06-24] MEDS: METOPROLOL TARTRATE 25 MG TAB PO SCH ×2 (08:15→20:53)
[2017-06-24] MEDS: DOCUSATE SODIUM 50 MG/SENNA 8.6 MG TAB PO SCH ×2 (08:15→20:54)
[2017-06-24] MEDS: PRAVASTATIN SOD 40 MG TAB PO SCH (08:15)
[2017-06-24] MEDS ORDERED: metFORMIN HCL 500 MG TAB PO SCH (09:00)
[2017-06-24 13:18] LABS: BACTERIA, URINE RARE /hpf; BILIRUBIN, URINE NEG (NEG); BLOOD, URINE NEG (NEG); GLUCOSE,URINE 1000 mg/dL (NEG); HYALINE CAST, URINE 2 /lpf (RARE); KETONE, URINE TRACE mg/dL (NEG); NITRITE,URINE NEG (NEG); PH, URINE 5.5 (5.0-8.5); URINE COLOR LIGHT-YELLOW (YELLW/STRAW); URINE LEUKOCYTE ESTERASE TRACE (NEG)
[2017-06-24 13:37] LABS: CREATININE, RANDOM URINE 96.2 MG/DL
--- NOTE | 2017-06-24 13:50 | PD.CARD.PN ---
Subjective Subjective Remarks on O2 in nad, appears lethargic Objective Medications Current Medications Medications (Trade) Dose Ordered Sig/Vladimir Route Start Time Stop Time Status Last Admin (NS Flush) 2 ml UNSCH PRN IV FLUSH 06/19/17 12:30 (NS Flush) 2 ml BID IV FLUSH 06/19/17 21:00 06/24/17 08:15 (Tylenol) 650 mg Q4H PRN PO 06/19/17 13:00 (Zofran Odt) 4 mg Q6H PRN PO 06/19/17 12:30 (Restoril) 15 mg HS PRN PO 06/19/17 13:00 06/23/17 23:04 (Lovenox Inj) 30 mg Q24H SQ 06/19/17 14:00 06/22/17 13:43 (Narcan Inj) 0.4 mg UNSCH PRN IV PUSH 06/19/17 12:30 (Roxanna-Colace) 1 tab BID PO 06/19/17 21:00 06/24/17 08:15 (Milk Of Magnesia Liq) 30 ml Q12H PRN PO 06/19/17 13:00 (Senokot) 17.2 mg Q12H PRN PO 06/19/17 13:00 (Dulcolax Supp) 10 mg DAILY PRN RECTAL 06/19/17 13:00 (Lactulose Liq) 30 ml DAILY PRN PO 06/19/17 13:00 (Aspirin Chew) 81 mg DAILY CHEW 06/19/17 13:00 06/24/17 08:15 (Lopressor) 12.5 mg BID PO 06/19/17 12:30 06/24/17 08:15 (Aldactone) 12.5 mg DAILY PO 06/19/17 13:00 06/24/17 08:15 (Pravachol) 40 mg DAILY PO 06/20/17 09:00 06/24/17 08:15 (Pill Splitter) 1 ea UNSCH PRN OTHER 06/19/17 13:15 (D50w (Vial) Inj) 50 ml UNSCH PRN IV PUSH 06/19/17 13:30 (Glucagon Inj) 1 mg UNSCH PRN OTHER 06/19/17 13:30 (NovoLOG SUPPLEMENTAL SCALE) 1 ACHS SLIDING SCALE SQ 06/19/17 17:00 06/24/17 12:00 (Albuterol Neb) 1.25 mg Q6HR NEB PRN NEB 06/20/17 16:15 06/23/17 12:27 Vital Signs / I&O Vital Signs Date Time Temp Pulse Resp B/P (MAP) Pulse Ox O2 Delivery O2 Flow Rate FiO2 06/24/17 12:00 88 06/24/17 12:00 97.8 87 18 113/96 (102) 96 06/24/17 08:00 98.1 97 18 98/83 (88) 97 06/24/17 08:00 99 06/24/17 07:45 Room Air 06/24/17 06:00 98.0 63 18 114/56 (75) 100 06/24/17 00:00 97.2 57 18 109/62 (78) 96 06/23/17 20:00 97.7 61 17 117/56 (76) 96 06/23/17 20:00 Room Air 06/23/17 16:00 97.3 61 18 122/61 (81) 95 06/23/17 16:00 111 I/O 06/23/17 06/23/17 06/23/17 06/24/17 06/24/17 06/24/17 07:00 15:00 23:00 07:00 15:00 23:00 Intake Total 840 ml 0 ml Output Total 0 ml Balance 840 ml 0 ml Intake Oral 840 ml 0 ml Output Urine Total 0 ml # Voids 3 6 # Bowel Movements 0 1 Physical Exam GENERAL: SKIN: Warm and dry. HEAD: Normocephalic. EYES: No scleral icterus. No injection or drainage. NECK: Supple, trachea midline. No JVD or lymphadenopathy. CARDIOVASCULAR: Regular rate and rhythm without murmurs, gallops, or rubs. RESPIRATORY: Breath sounds equal bilaterally. No accessory muscle use. GASTROINTESTINAL: Abdomen soft, non-tender, nondistended. MUSCULOSKELETAL: No cyanosis, or edema. BACK: Nontender without obvious deformity. No CVA tenderness. Laboratory Laboratory Tests Test 06/24/17 04:30 06/24/17 12:55 Blood Urea Nitrogen 60 MG/DL Creatinine 1.61 MG/DL Random Glucose 71 MG/DL Calcium Level 8.8 MG/DL Magnesium Level 2.5 MG/DL Sodium Level 142 MEQ/L Potassium Level 3.9 MEQ/L Chloride Level 107 MEQ/L Carbon Dioxide Level 22.8 MEQ/L Anion Gap 12 MEQ/L Estimat Glomerular Filtration Rate 41 ML/MIN B-Type Natriuretic Peptide 83 PG/ML Urine Color LIGHT-YELLOW Urine Turbidity CLEAR Urine pH 5.5 Urine Specific Mackay 1.017 Urine Protein TRACE mg/dL Urine Glucose (UA) 1000 mg/dL Urine Ketones TRACE mg/dL Urine Occult Blood NEG Urine Nitrite NEG Urine Bilirubin NEG Urine Urobilinogen LESS THAN 2.0 MG/DL Urine Leukocyte Esterase TRACE Urine RBC 1 /hpf Urine WBC 5 /hpf Urine Bacteria RARE /hpf Urine Hyaline Casts 2 /lpf Microscopic Urinalysis Comment CULT NOT INDICATED Urine Random Creatinine 96.2 MG/DL Urine Random Sodium 35 MEQ/L Assessment and Plan Problem List: (1) Cardiomyopathy ICD Codes: I42.9 - Cardiomyopathy, unspecified (2) CHF (congestive heart failure) ICD Codes: I50.9 - Heart failure, unspecified (3) Hypoxia ICD Codes: R09.02 - Hypoxemia (4) Dyspnea ICD Codes: R06.00 - Dyspnea, unspecified (5) HTN (hypertension) ICD Codes: I10 - Essential (primary) hypertension (6) Weakness ICD Codes: R53.1 - Weakness (7) Fatigue ICD Codes: R53.83 - Other fatigue Assessment and Plan 1.) Cardiomyopathy - bnp wnl, hypoxia and dyspnea appear disproportionate to degree of chf suggesting pulmonary etiology to his hypoxia and dyspnea, cta showing cpod and infiltrate, continue metoprolol, losartan, lasix, f/u bnp; v/ q scan negative, 2.) Ventricular ectopy - cath canceled due to arf, chest ct suggesting pulmonary etiology to dyspnea and improvement with bronchodilators; f/u EP consult for further assessment 3.) ARF - consult renal, cancel cath grant if creatinine not at baseline 4.) d/w daughter, Cheri, 06/23/17, she is trying to send last cath report; Max Garcia MD June 24, 2017 13:50
--- NOTE | 2017-06-24 13:52 | HHI.PR ---
Subjective Remarks Nursing denies any deterioration since last night. Patient himself says he still feels short of breath intermittently while resting and truly thinks the DuoNeb treatments help. Patient is seen working with occupational therapy today , I noted that his saturations improved to 96 and 98% on room air while ambulating. Objective Vital Signs Date Time Temp Pulse Resp B/P (MAP) Pulse Ox O2 Delivery O2 Flow Rate FiO2 06/24/17 12:00 88 06/24/17 12:00 97.8 87 18 113/96 (102) 96 06/24/17 08:00 98.1 97 18 98/83 (88) 97 06/24/17 08:00 99 06/24/17 07:45 Room Air 06/24/17 06:00 98.0 63 18 114/56 (75) 100 06/24/17 00:00 97.2 57 18 109/62 (78) 96 06/23/17 20:00 97.7 61 17 117/56 (76) 96 06/23/17 20:00 Room Air 06/23/17 16:00 97.3 61 18 122/61 (81) 95 06/23/17 16:00 111 I/O 06/23/17 06/23/17 06/23/17 06/24/17 06/24/17 06/24/17 07:00 15:00 23:00 07:00 15:00 23:00 Intake Total 840 ml 0 ml Output Total 0 ml Balance 840 ml 0 ml Intake Oral 840 ml 0 ml Output Urine Total 0 ml # Voids 3 6 # Bowel Movements 0 1 Result Diagram: 06/23/17 0455 06/24/17 0430 Objective Remarks Clear breath sounds bilaterally, unlabored breathing, wearing nasal cannula No lower extremity edema, heart sounds regular rate rhythm, no murmurs Lying in bed, awake, alert, no acute distress A/P Assessment and Plan This is an 82-year-old male with history of cardiomyopathy, COPD, sleep apnea, diabetes mellitus, hypertension presenting with shortness of breath intermittent SOB - now likely 2/2 tachyarrhythmia given VQ low to indeterminate probability w/ sats now normalized, clinically improved today, ambulating without difficulty Tachyarrhythmia -PVCs with possible PACs -Cardiology is awaiting electrophysiology evaluation and outside cath report before proceeding with further workup Acute kidney injury -Likely may have been secondary to diuresis since BMP results came before contrast dye was infused; nephrology following -We will hold IV diuretics, holding ARB and aldactone -I personally confirmed with lab as well as with CT, that the patient demonstrated worsening renal function before contrast was infused on 06/21 signifying more nephrotoxicity from IV diuresis as opposed to contrast-induced nephropathy, related to cardiology Mild chronic systolic chronic heart failure -Continue home metoprolol aspirin, hold Aldactone in light of SYEDA ECHO shows EF 45-55%. Hypertension, uncontrolled- on metoprolol, holding ARB given SYEDA Diabetes mellitus- holding metformin given SYEDA, on sliding scale insulin. Franc Heredia MD June 24, 2017 13:52
[2017-06-24] MEDS: ENOXAPARIN SODIUM 30 MG/0.3 ML SYRINGE SQ SCH (13:57)
--- NOTE | 2017-06-24 16:45 | HHI.NPPN ---
Subjective General Problems: Heart Disease Renal Failure: Acute History of Present Illness 82 male with past medical history of diabetes, chronic obstructive pulmonary disease, history of cardiomyopathy, hyperlipidemia, BPH, and sleep apnea. Presents to Emergency room with acute shortness of breath. Nephrology is consulted for elevated creatinine . Additional Remarks Patient is alert, mild SOB, no chest pain. Objective Data Data Vital Signs Date Time Temp Pulse Resp B/P (MAP) Pulse Ox O2 Delivery O2 Flow Rate FiO2 06/24/17 16:00 97.8 57 18 100/86 (91) 96 06/24/17 16:00 102 06/24/17 12:00 88 06/24/17 12:00 97.8 87 18 113/96 (102) 96 06/24/17 08:00 98.1 97 18 98/83 (88) 97 06/24/17 08:00 99 06/24/17 07:45 Room Air 06/24/17 06:00 98.0 63 18 114/56 (75) 100 06/24/17 00:00 97.2 57 18 109/62 (78) 96 06/23/17 20:00 97.7 61 17 117/56 (76) 96 06/23/17 20:00 Room Air -: 06/23/17 0455 06/24/17 0430 Physical Exam General Appearance: No Acute Distress, Comfortable Throat Throat Exam: Oral Mucosa [place] & Moist Neck Neck Exam: Neck Supple Pulmonary Resp Exam: No Distress, Rhonchi, Decreased Bases, Diminished Breath Sounds Neurologic Neuro Exam: Alert, Awake Psychiatric Psych Exam: Appropriate Responses Assessment/Plan Problem List: (1) Acute kidney injury ICD Codes: N17.9 - Acute kidney failure, unspecified Plan: Acute kidney injury with a creatinine of 1.70 today which is down from yesterday at 1.84. The elevated started about 48 hours after receiving IV contrast so most likely contrast induced SYEDA. Plan Will order renal Ultrasound Urine osmolarity, sodium, and creatinine Continue to hold ARB Patient is scheduled to have heart catheterization recommend to hang IVF NS 12 hours prior to procedure and 12 hours after if patient can tolerate Per cardiology note heart cath will be canceled today if creatinine is not at baseline. Creatinine continue to improve. Contrast was given after increase in the Creatinine. If Creatinine continue to improve or same, can have Cardiac Cath. with almost 10 % risk of Worsening renal function. This discussed with the patient. If going for Cath. to get Mucomyst and IV Hydration. (2) HTN (hypertension) ICD Codes: I10 - Essential (primary) hypertension Plan: will controlled (3) Dyspnea ICD Codes: R06.00 - Dyspnea, unspecified Plan: Continues to have shortness of breath (4) CHF (congestive heart failure) ICD Codes: I50.9 - Heart failure, unspecified Plan: Tammi is on hold Nevin Olson MD June 24, 2017 16:45
[2017-06-24] MEDS: TEMAZEPAM 15 MG CAP PO PRN (20:53)
[2017-06-25] VITALS (10 sets, daily range): BP systolic 97–131; BP diastolic 62–92; PULSE 64–139; RESP 17–20; TEMP 97.1–98; O2SAT 94–98
[2017-06-25] MEDS: INSULIN ASPART SUPPLEMENTAL SCALE SQ SCH ×4 (08:00→22:18)
[2017-06-25] MEDS: DOCUSATE SODIUM 50 MG/SENNA 8.6 MG TAB PO SCH ×2 (09:00→21:00)
--- NOTE | 2017-06-25 10:08 | HHI.PR ---
Subjective Remarks 06-24 Nursing denies any deterioration since last night. Patient himself says he still feels short of breath intermittently while resting and truly thinks the DuoNeb treatments help. Patient is seen working with occupational therapy today, I noted that his saturations improved to 96 and 98% on room air while ambulating. 06-25 CATH WAS HELD BY CARDIOLOGY LABS PENDING [facility] RN AND PT AND CM SATING IN THE 90S ON ROOM AIR CURRENTLY [facility] OCCUP[facility]ER[facility] Objective Vitals Vital Signs Date Time Temp Pulse Resp B/P (MAP) Pulse Ox O2 Delivery O2 Flow Rate FiO2 06/25/17 04:00 114 06/25/17 04:00 97.2 100 18 131/67 (88) 96 06/25/17 00:00 97.2 99 17 104/70 (81) 94 06/25/17 00:00 111 06/24/17 20:18 96 Nasal Cannula 2.00 06/24/17 20:00 Room Air 06/24/17 20:00 97 06/24/17 20:00 Room Air 06/24/17 20:00 96.5 106 17 109/79 (89) 95 06/24/17 16:00 97.8 57 18 100/86 (91) 96 06/24/17 16:00 102 06/24/17 12:00 88 06/24/17 12:00 97.8 87 18 113/96 (102) 96 I/O 06/24/17 06/24/17 06/24/17 06/25/17 06/25/17 06/25/17 07:00 15:00 23:00 07:00 15:00 23:00 Intake Total 0 ml 1180 ml 120 ml Output Total 0 ml Balance 0 ml 1180 ml 120 ml Intake Oral 0 ml 1180 ml 120 ml Output Urine Total 0 ml # Voids 5 4 # Bowel Movements 1 0 0 Result Diagram: 06/23/17 0455 06/24/17 0430 Other Results Laboratory Tests Test 06/22/17 10:54 06/23/17 04:55 06/24/17 04:30 06/24/17 12:55 Blood Urea Nitrogen 61 MG/DL 62 MG/DL 60 MG/DL Creatinine 1.84 MG/DL 1.70 MG/DL 1.61 MG/DL Random Glucose 316 MG/DL 158 MG/DL 71 MG/DL Calcium Level 8.8 MG/DL 9.2 MG/DL 8.8 MG/DL Sodium Level 139 MEQ/L 143 MEQ/L 142 MEQ/L Potassium Level 4.9 MEQ/L 4.0 MEQ/L 3.9 MEQ/L Chloride Level 105 MEQ/L 106 MEQ/L 107 MEQ/L Carbon Dioxide Level 24.0 MEQ/L 25.1 MEQ/L 22.8 MEQ/L Anion Gap 10 MEQ/L 12 MEQ/L 12 MEQ/L Estimat Glomerular Filtration Rate 35 ML/MIN 39 ML/MIN 41 ML/MIN Procalcitonin 0.13 ng/mL White Blood Count 9.4 TH/MM3 Red Blood Count 5.17 MIL/MM3 Hemoglobin 16.6 GM/DL Hematocrit 48.6 % Mean Corpuscular Volume 94.0 FL Mean Corpuscular Hemoglobin 32.2 PG Mean Corpuscular Hemoglobin Concent 34.2 % Red Cell Distribution Width 14.1 % Platelet Count 270 TH/MM3 Mean Platelet Volume 7.7 FL Magnesium Level 2.5 MG/DL 2.5 MG/DL B-Type Natriuretic Peptide 90 PG/ML 83 PG/ML Urine Color LIGHT-YELLOW Urine Turbidity CLEAR Urine pH 5.5 Urine Specific [place] 1.017 Urine Protein TRACE mg/dL Urine Glucose (UA) 1000 mg/dL Urine Ketones TRACE mg/dL Urine Occult Blood NEG Urine Nitrite NEG Urine Bilirubin NEG Urine Urobilinogen LESS THAN 2.0 MG/DL Urine Leukocyte Esterase TRACE Urine RBC 1 /hpf Urine WBC 5 /hpf Urine Bacteria RARE /hpf Urine Hyaline Casts 2 /lpf Microscopic Urinalysis Comment CULT NOT INDICATED Urine Osmolality 588 MOSM/KG Urine Random Creatinine 96.2 MG/DL Urine Random Sodium 35 MEQ/L Imaging Last Impressions Renal Ultrasound 06/23/17 0000 Signed Impressions: Service Date/Time: Friday, June 23, 2017 11:10 - CONCLUSION: 1.1 cm polypoid mass base of the bladder. Multiple renal cysts without hydronephrosis. Cortex reasonably well-preserved. Dayron Bui MD FACR Chest CT 06/21/17 0000 Signed Impressions: Service Date/Time: Wednesday, June 21, 2017 19:39 - CONCLUSION: 1. Central lobar emphysema characteristic for COPD. 2. Nonspecific interstitial infiltrate involving the posterior right lower lung. This can be an acute or chronic basis. There no prior studies comparison. 3. 1.5 cm right adrenal mass most likely an adrenal adenoma. 4. Hepatic and right sided renal cysts. Leonides Platt MD Chest X-Ray 06/19/17 0805 Signed Impressions: Service Date/Time: June 08:51 - CONCLUSION: 1. Minimal basal atelectasis or scarring. No active disease. Mildly tortuous aorta. Alexys Aleman MD Lung Scan- Nuclear Medicine 06/19/17 0000 Signed Impressions: Service Date/Time: Tuesday, June 20, 2017 09:35 - CONCLUSION: 1. Low probability for pulmonary embolus. Alexys Aleman MD Objective Remarks GENERAL: Awake and alert and oriented talkative and cooperative somewhat hard of hearing SKIN: Warm and dry. HEAD: Atraumatic. Normocephalic. EYES: Pupils equal and round. No scleral icterus. No injection or drainage. Extraocular muscles intact ENT: No nasal bleeding or discharge. Mucous membranes pink and moist. Tongue is midline NECK: Trachea midline. No JVD. Supple CARDIOVASCULAR: Regular rate and rhythm. S1-S2 no S3 or S4 RESPIRATORY: No accessory muscle use. Clear to auscultation. Breath sounds equal bilaterally. Decreased breath sounds bilaterally GASTROINTESTINAL: Abdomen soft, non-tender, nondistended. Hepatic and splenic margins not palpable. MUSCULOSKELETAL: Extremities without clubbing, cyanosis, or edema. No obvious deformities. NEUROLOGICAL: Awake and alert. No obvious cranial nerve deficits. Motor grossly within normal limits. 4 out of 5 muscle strength in the arms and legs. Normal speech. PSYCHIATRIC: Appropriate mood and affect; insight and judgment normal. Medications and IVs Current Medications Sodium Chloride (NS Flush) 2 ml UNSCH PRN IVF FLUSH AFTER USING IV ACCESS; Start 06/19/17 at 08:15; Stop 06/20/17 at 16:15; Status DC Sodium Chloride (NS Flush) 2 ml UNSCH PRN IV FLUSH FLUSH AFTER USING IV ACCESS ; Start 06/19/17 at 12:30 Sodium Chloride (NS Flush) 2 ml BID IV FLUSH Last administered on 06/24/17at 20: 54; Start 06/19/17 at 21:00 Acetaminophen (Tylenol) 650 mg Q4H PRN PO TEMP > 100.4; Start 06/19/17 at 13:00 Ondansetron HCl (Zofran Odt) 4 mg Q6H PRN PO NAUSEA OR VOMITING; Start at 12:30 Temazepam (Restoril) 15 mg HS PRN PO INSOMNIA Last administered on 06/24/17at 20 :53; Start 06/19/17 at 13:00 Enoxaparin Sodium (Lovenox Inj) 30 mg Q24H SQ Last administered on 06/24/17at 13 :57; Start 06/19/17 at 14:00 Naloxone HCl (Narcan Inj) 0.4 mg UNSCH PRN IV PUSH SEE LABEL COMMENTS; Start at 12:30 Senna/Docusate Sodium (Roxanna-Colace) 1 tab BID PO Last administered on at 08:15; Start 06/19/17 at 21:00 Magnesium Hydroxide (Milk Of Magnesia Liq) 30 ml Q12H PRN PO Mild constipation ; Start 06/19/17 at 13:00 Sennosides (Senokot) 17.2 mg Q12H PRN PO Moderate constipation; Start 06/19/17 at 13:00 Bisacodyl (Dulcolax Supp) 10 mg DAILY PRN RECTAL SEVERE CONSITIPATION; Start at 13:00 Lactulose (Lactulose Liq) 30 ml DAILY PRN PO SEVERE CONSITIPATION; Start at 13:00 Aspirin (Aspirin Chew) 81 mg DAILY CHEW Last administered on 06/24/17at 08:15; Start 06/19/17 at 13:00 Metformin HCl (Glucophage) 500 mg BIDPC PO Last administered on 06/21/17at 17:59 ; Start 06/19/17 at 18:00; Stop 06/21/17 at 20:54; Status DC Metoprolol Tartrate (Lopressor) 12.5 mg BID PO Last administered on 06/24/17 20:53; Start 06/19/17 at 12:30 Spironolactone (Aldactone) 12.5 mg DAILY PO Last administered on 06/24/17at 08: 15; Start 06/19/17 at 13:00 Losartan Potassium (Cozaar) 25 mg BID PO Last administered on 06/22/17at 08:15; Start 06/19/17 at 12:30; Stop 06/22/17 at 09:27; Status DC Pravastatin Sodium (Pravachol) 40 mg DAILY PO Last administered on 06/24/17at 08 :15; Start 06/20/17 at 09:00 Miscellaneous (Pill Splitter) 1 ea UNSCH PRN OTHER SEE LABEL COMMENTS; Start at 13:15 Dextrose (D50w (Vial) Inj) 50 ml UNSCH PRN IV PUSH HYPOGLYCEMIA-SEE COMMENTS; Start 06/19/17 at 13:30 Glucagon (Glucagon Inj) 1 mg UNSCH PRN OTHER HYPOGLYCEMIA-SEE COMMENTS; Start 06/19/17 at 13:30 Insulin Aspart (NovoLOG SUPPLEMENTAL SCALE) 1 ACHS SLIDING SCALE SQ Last administered on 06/24/17at 20:53; Start 06/19/17 at 17:00 Furosemide (Lasix Inj) 20 mg BID@09,18 IV PUSH Last administered on 06/22/17at 08:16; Start 06/19/17 at 14:00; Stop 06/22/17 at 09:27; Status DC Enalaprilat (Vasotec Inj) 1.25 mg Q6H PRN IV PUSH SBP>!60; Start 06/19/17 at 13 :30; Stop 06/22/17 at 09:27; Status DC Albuterol Sulfate (Albuterol Neb) 1.25 mg Q6HR NEB PRN NEB wheezing Last administered on 06/23/17at 12:27; Start 06/20/17 at 16:15 Iohexol (Omnipaque 350 Inj) 70 ml STK-MED ONCE IVCONTRAST Last administered on 06/21/17at 19:46; Start 06/21/17 at 19:46; Stop 06/21/17 at 19:47; Status DC Miscellaneous Information ([facility] [place] Nursing Information) HOLD METFORMIN FOR... Q24H .XX ; Start 06/21/17 at 19:45; Stop 06/23/17 at 19:45; Status DC Metformin HCl (Glucophage) 500 mg BIDPC PO ; Start 06/24/17 at 09:00; Stop 06/24 at 09:00; Status DC Sodium Chloride 250 ml @ 250 mls/hr BOLUS ONCE IV Last administered on at 10:05; Start 06/22/17 at 09:30; Stop 06/22/17 at 10:29; Status DC A/P Assessment and Plan This is an 82-year-old male with history of cardiomyopathy, COPD, sleep apnea, diabetes mellitus, hypertension presenting with shortness of breath intermittent SOB - now likely 2/2 tachyarrhythmia given VQ low to indeterminate probability w/ sats now normalized, clinically improved today, ambulating without difficulty Tachyarrhythmia -PVCs with possible PACs -Cardiology is awaiting electrophysiology evaluation and outside cath report before proceeding with further workup Acute kidney injury -Likely may have been secondary to diuresis since BMP results came before contrast dye was infused; nephrology following -We will hold IV diuretics, holding ARB and Aldactone -I personally confirmed with lab as well as with CT, that the patient demonstrated worsening renal function before contrast was infused on 06/21 signifying more nephrotoxicity from IV diuresis as opposed to contrast-induced nephropathy, related to cardiology RENAL FOLLOWING Mild chronic systolic chronic heart failure -Continue home metoprolol aspirin, hold Aldactone in light of SYEDA ECHO shows EF 45-55%. Hypertension, uncontrolled- on metoprolol, holding ARB given SYEDA Diabetes mellitus- holding metformin given SYEDA, on sliding scale insulin. AM LABS Labs today are pending IS A DNR- WILL MAKE DNR HERE Discharge Planning Continue physical therapy and Occupational Therapy May need SNF at discharge Dayron Arguelles DO June 25, 2017 10:08
[2017-06-25] MEDS: PRAVASTATIN SOD 40 MG TAB PO SCH (10:48)
[2017-06-25] MEDS: ASPIRIN 81 MG CHEW TAB CHEW SCH (10:48)
[2017-06-25] MEDS: SPIRONOLACTONE 25 MG TAB PO SCH (10:48)
[2017-06-25] MEDS: METOPROLOL TARTRATE 25 MG TAB PO SCH ×2 (10:49→22:18)
[2017-06-25] MEDS: SODIUM CHLORIDE 0.9% FLUSH 10 ML FLUSH IV FLUSH SCH ×2 (10:49→22:17)
[2017-06-25 11:36] LABS: AUTOMATED NEUTROPHIL # 5.4 TH/MM3 (1.8-7.7); BASOPHIL # 0.1 TH/MM3 (0-0.2); BASOPHIL % 0.9 % (0.0-2.0); EOSINOPHIL # 0.2 TH/MM3 (0-0.4); EOSINOPHIL % 2.6 % (0.0-4.0); HEMATOCRIT 45.4 % (39.0-51.0); HEMOGLOBIN 15.4 GM/DL (13.0-17.0); LYMPH % 14.2 % (9.0-44.0); MEAN CELL VOLUME 93.9 FL (80.0-100.0); MEAN CORPUSCULAR HEMOGLOBIN 31.9 PG (27.0-34.0); MEAN CORPUSCULAR HGB CONC 33.9 % (32.0-36.0); MEAN PLATELET VOLUME 8.1 FL (7.0-11.0); MONO % 7.4 % (0.0-8.0); MONOCYTE # 0.5 TH/MM3 (0-0.9); NEUT % 74.9 % (16.0-70.0); PLATELET COUNT 228 TH/MM3 (150-450); RED BLOOD COUNT 4.84 MIL/MM3 (4.50-5.90); RED CELL DISTRIBUTION WIDTH 13.8 % (11.6-17.2); WHITE BLOOD COUNT 7.1 TH/MM3 (4.0-11.0)
[2017-06-25 12:15] LABS: ALBUMIN 3.2 GM/DL (3.4-5.0); AST (GOT) 24 U/L (15-37); BICARBONATE 22.8 MEQ/L (21.0-32.0); BLOOD UREA NITROGEN 50 MG/DL (7-18); CALCIUM 8.7 MG/DL (8.5-10.1); CHLORIDE 105 MEQ/L (98-107); CREATININE 1.61 MG/DL (0.60-1.30); GLOMERULAR FILTRATION RATE 41 ML/MIN (>89); GLUCOSE,RANDOM 292 MG/DL (74-106); MAGNESIUM 2.3 MG/DL (1.5-2.5); SODIUM (NA) 142 MEQ/L (136-145)
[2017-06-25 12:29] LABS: ALKALINE PHOSPHATASE 112 U/L (45-117); ALT (GPT) 34 U/L (12-78); FREE T4 1.58 NG/DL (0.76-1.46); PHOSPHORUS 3.4 MG/DL (2.5-4.9); TOTAL BILIRUBIN ADULT 0.7 MG/DL (0.2-1.0); TOTAL PROTEIN 8.2 GM/DL (6.4-8.2)
[2017-06-25] MEDS: ENOXAPARIN SODIUM 30 MG/0.3 ML SYRINGE SQ SCH (13:24)
--- NOTE | 2017-06-25 15:57 | PD.CARD.PN ---
Subjective Subjective Remarks appears lethargic Objective Medications Current Medications Medications (Trade) Dose Ordered Sig/Vladimir Route Start Time Stop Time Status Last Admin (NS Flush) 2 ml UNSCH PRN IV FLUSH 06/19/17 12:30 (NS Flush) 2 ml BID IV FLUSH 06/19/17 21:00 06/25/17 10:49 (Tylenol) 650 mg Q4H PRN PO 06/19/17 13:00 (Zofran Odt) 4 mg Q6H PRN PO 06/19/17 12:30 (Restoril) 15 mg HS PRN PO 06/19/17 13:00 06/24/17 20:53 (Lovenox Inj) 30 mg Q24H SQ 06/19/17 14:00 06/25/17 13:24 (Narcan Inj) 0.4 mg UNSCH PRN IV PUSH 06/19/17 12:30 (Roxanna-Colace) 1 tab BID PO 06/19/17 21:00 06/24/17 08:15 (Milk Of Magnesia Liq) 30 ml Q12H PRN PO 06/19/17 13:00 (Senokot) 17.2 mg Q12H PRN PO 06/19/17 13:00 (Dulcolax Supp) 10 mg DAILY PRN RECTAL 06/19/17 13:00 (Lactulose Liq) 30 ml DAILY PRN PO 06/19/17 13:00 (Aspirin Chew) 81 mg DAILY CHEW 06/19/17 13:00 06/25/17 10:48 (Lopressor) 12.5 mg BID PO 06/19/17 12:30 06/25/17 10:49 (Aldactone) 12.5 mg DAILY PO 06/19/17 13:00 06/25/17 10:48 (Pravachol) 40 mg DAILY PO 06/20/17 09:00 06/25/17 10:48 (Pill Splitter) 1 ea UNSCH PRN OTHER 06/19/17 13:15 (D50w (Vial) Inj) 50 ml UNSCH PRN IV PUSH 06/19/17 13:30 (Glucagon Inj) 1 mg UNSCH PRN OTHER 06/19/17 13:30 (NovoLOG SUPPLEMENTAL SCALE) 1 ACHS SLIDING SCALE SQ 06/19/17 17:00 06/25/17 13:20 (Albuterol Neb) 1.25 mg Q6HR NEB PRN NEB 06/20/17 16:15 06/23/17 12:27 Vital Signs / I&O Vital Signs Date Time Temp Pulse Resp B/P (MAP) Pulse Ox O2 Delivery O2 Flow Rate FiO2 06/25/17 12:08 97.8 97 20 113/92 (99) 95 06/25/17 11:28 95 06/25/17 08:08 97.1 71 20 97/70 (79) 98 06/25/17 04:00 114 06/25/17 04:00 97.2 100 18 131/67 (88) 96 06/25/17 00:00 97.2 99 17 104/70 (81) 94 06/25/17 00:00 111 06/24/17 20:18 96 Nasal Cannula 2.00 06/24/17 20:00 Room Air 06/24/17 20:00 97 06/24/17 20:00 Room Air 06/24/17 20:00 96.5 106 17 109/79 (89) 95 06/24/17 16:00 97.8 57 18 100/86 (91) 96 06/24/17 16:00 102 I/O 06/24/17 06/24/17 06/24/17 06/25/17 06/25/17 06/25/17 07:00 15:00 23:00 07:00 15:00 23:00 Intake Total 0 ml 1180 ml 120 ml Output Total 0 ml Balance 0 ml 1180 ml 120 ml Intake Oral 0 ml 1180 ml 120 ml Output Urine Total 0 ml # Voids 5 4 # Bowel Movements 1 0 0 Physical Exam GENERAL: SKIN: Warm and dry. HEAD: Normocephalic. EYES: No scleral icterus. No injection or drainage. NECK: Supple, trachea midline. No JVD or lymphadenopathy. CARDIOVASCULAR: Regular rate and rhythm without murmurs, gallops, or rubs. RESPIRATORY: Breath sounds equal bilaterally. No accessory muscle use. GASTROINTESTINAL: Abdomen soft, non-tender, nondistended. MUSCULOSKELETAL: No cyanosis, or edema. BACK: Nontender without obvious deformity. No CVA tenderness. Laboratory Laboratory Tests Test 06/25/17 10:55 White Blood Count 7.1 TH/MM3 Red Blood Count 4.84 MIL/MM3 Hemoglobin 15.4 GM/DL Hematocrit 45.4 % Mean Corpuscular Volume 93.9 FL Mean Corpuscular Hemoglobin 31.9 PG Mean Corpuscular Hemoglobin Concent 33.9 % Red Cell Distribution Width 13.8 % Platelet Count 228 TH/MM3 Mean Platelet Volume 8.1 FL Neutrophils (%) (Auto) 74.9 % Lymphocytes (%) (Auto) 14.2 % Monocytes (%) (Auto) 7.4 % Eosinophils (%) (Auto) 2.6 % Basophils (%) (Auto) 0.9 % Neutrophils # (Auto) 5.4 TH/MM3 Lymphocytes # (Auto) 1.0 TH/MM3 Monocytes # (Auto) 0.5 TH/MM3 Eosinophils # (Auto) 0.2 TH/MM3 Basophils # (Auto) 0.1 TH/MM3 CBC Comment DIFF FINAL Differential Comment Blood Urea Nitrogen 50 MG/DL Creatinine 1.61 MG/DL Random Glucose 292 MG/DL Total Protein 8.2 GM/DL Albumin 3.2 GM/DL Calcium Level 8.7 MG/DL Phosphorus Level 3.4 MG/DL Magnesium Level 2.3 MG/DL Alkaline Phosphatase 112 U/L Aspartate Amino Transf (AST/SGOT) 24 U/L Alanine Aminotransferase (ALT/SGPT) 34 U/L Total Bilirubin 0.7 MG/DL Sodium Level 142 MEQ/L Potassium Level 4.3 MEQ/L Chloride Level 105 MEQ/L Carbon Dioxide Level 22.8 MEQ/L Anion Gap 14 MEQ/L Estimat Glomerular Filtration Rate 41 ML/MIN Free Thyroxine 1.58 NG/DL Thyroid Stimulating Hormone 3rd Gen 0.487 uIU/ML Assessment and Plan Problem List: (1) Cardiomyopathy ICD Codes: I42.9 - Cardiomyopathy, unspecified (2) CHF (congestive heart failure) ICD Codes: I50.9 - Heart failure, unspecified (3) Hypoxia ICD Codes: R09.02 - Hypoxemia (4) Dyspnea ICD Codes: R06.00 - Dyspnea, unspecified (5) HTN (hypertension) ICD Codes: I10 - Essential (primary) hypertension (6) Weakness ICD Codes: R53.1 - Weakness (7) Fatigue ICD Codes: R53.83 - Other fatigue Assessment and Plan 1.) Cardiomyopathy - bnp wnl, hypoxia and dyspnea appear disproportionate to degree of chf suggesting pulmonary etiology to his hypoxia and dyspnea, cta showing cpod and infiltrate, continue metoprolol, losartan, lasix, f/u bnp; v/ q scan negative, 2.) Ventricular ectopy - cath canceled due to arf, chest ct suggesting pulmonary etiology to dyspnea and improvement with bronchodilators; f/u EP consult for further assessment 3.) ARF - consult renal, cancel cath grant if creatinine not at baseline 4.) d/w daughter, Cheri, 06/23/17, she is trying to send last cath report; Max Garcia MD June 25, 2017 15:57
[2017-06-25 16:11] LABS: HEMOGLOBIN A1C 7.3 % (4.3-6.0)
--- NOTE | 2017-06-25 16:16 | HHI.NPPN ---
Subjective General Problems: Heart Disease Renal Failure: Acute History of Present Illness 82 male with past medical history of diabetes, chronic obstructive pulmonary disease, history of cardiomyopathy, hyperlipidemia, BPH, and sleep apnea. Presents to Emergency room with acute shortness of breath. Nephrology is consulted for elevated creatinine . Additional Remarks Patient is alert, mild SOB and cough. (Chantal Coppola) Review of Systems Respiratory Lungs: SOB, Cough (Chantal Coppola) Objective Data Data Vital Signs Date Time Temp Pulse Resp B/P (MAP) Pulse Ox O2 Delivery O2 Flow Rate FiO2 06/25/17 12:08 97.8 97 20 113/92 (99) 95 06/25/17 11:28 95 06/25/17 08:08 97.1 71 20 97/70 (79) 98 06/25/17 04:00 114 06/25/17 04:00 97.2 100 18 131/67 (88) 96 06/25/17 00:00 97.2 99 17 104/70 (81) 94 06/25/17 00:00 111 06/24/17 20:18 96 Nasal Cannula 2.00 06/24/17 20:00 Room Air 06/24/17 20:00 97 06/24/17 20:00 Room Air 06/24/17 20:00 96.5 106 17 109/79 (89) 95 (Chantal Coppola) -: 06/25/17 1055 06/25/17 1055 Imaging Last Impressions Renal Ultrasound 06/23/17 0000 Signed Impressions: Service Date/Time: Friday, June 23, 2017 11:10 - CONCLUSION: 1.1 cm polypoid mass base of the bladder. Multiple renal cysts without hydronephrosis. Cortex reasonably well-preserved. Dayron Bui MD FACR Chest CT 06/21/17 0000 Signed Impressions: Service Date/Time: Wednesday, June 21, 2017 19:39 - CONCLUSION: 1. Central lobar emphysema characteristic for COPD. 2. Nonspecific interstitial infiltrate involving the posterior right lower lung. This can be an acute or chronic basis. There no prior studies comparison. 3. 1.5 cm right adrenal mass most likely an adrenal adenoma. 4. Hepatic and right sided renal cysts. Leonides Platt MD Chest X-Ray 06/19/17 0805 Signed Impressions: Service Date/Time: June 08:51 - CONCLUSION: 1. Minimal basal atelectasis or scarring. No active disease. Mildly tortuous aorta. Alexys Aleman MD Lung Scan-V Nuclear Medicine 06/19/17 0000 Signed Impressions: Service Date/Time: Tuesday, June 20, 2017 09:35 - CONCLUSION: 1. Low probability for pulmonary embolus. Alexys Aleman MD (Chantal Coppola) Physical Exam General Appearance: No Acute Distress, Comfortable (Chantal Coppola) Throat Throat Exam: Oral Mucosa [place] & Moist (Chantal Coppola) Neck Neck Exam: Neck Supple (Chantal Coppola) Pulmonary Resp Exam: No Distress, Rhonchi, Decreased Bases, Diminished Breath Sounds (Chantal Coppola) Neurologic Neuro Exam: Alert, Awake (Chantal Coppola) Psychiatric Psych Exam: Appropriate Responses (Chantal Coppola) Assessment/Plan Problem List: (1) Acute kidney injury ICD Codes: N17.9 - Acute kidney failure, unspecified Plan: Acute kidney injury with a creatinine of 1.70 today which is down from yesterday at 1.84. SYEDA could be prerenal with diuresis FeNA at 0.43 % suggestive of prerenal Plan Continue to hold ARB If patient is to have heart catheterization recommend to hang IVF NS 12 hours prior to procedure and 12 hours after and administer mucomyst Per cardiology note heart cath is on hold until creatinine is at baseline. Dr. Garcia is discussing with Dr. Quiñones Creatinine is stable at 1.61 If Creatinine continue to improve or same, can have Cardiac Cath. with almost 10 % risk of Worsening renal function. This was discussed with the patient per Dr. Olson (2) HTN (hypertension) ICD Codes: I10 - Essential (primary) hypertension Plan: will controlled (3) Dyspnea ICD Codes: R06.00 - Dyspnea, unspecified Plan: Continues to have shortness of breath (4) CHF (congestive heart failure) ICD Codes: I50.9 - Heart failure, unspecified Plan: Lasix is on hold (Gellermann,Chantal M. PHYTOCHEMISTRY PROFESSOR) Problem List: (1) Acute kidney injury ICD Codes: N17.9 - Acute kidney failure, unspecified Plan: Acute kidney injury with a creatinine of 1.70 today which is down from yesterday at 1.84. SYEDA could be prerenal with diuresis FeNA at 0.43 % suggestive of prerenal Plan Continue to hold ARB If patient is to have heart catheterization recommend to hang IVF NS 12 hours prior to procedure and 12 hours after and administer mucomyst Per cardiology note heart cath is on hold until creatinine is at baseline. Dr. Garcia is discussing with Dr. Quiñones Creatinine is stable at 1.61 If Creatinine continue to improve or same, can have Cardiac Cath. with almost 10 % risk of Worsening renal function. This was discussed with the patient per Dr. Olson. Patient seen and examined, agree with above. Cardiology to decide about Cath. Creatinine continue to improve. (2) HTN (hypertension) ICD Codes: I10 - Essential (primary) hypertension Plan: will controlled (3) Dyspnea ICD Codes: R06.00 - Dyspnea, unspecified Plan: Continues to have shortness of breath (4) CHF (congestive heart failure) ICD Codes: I50.9 - Heart failure, unspecified Plan: Lasix is on hold (Nevin Olson MD) Chantal Coppola June 25, 2017 16:16 Nevin Olson MD June 25, 2017 20:32
[2017-06-25] MEDS: TEMAZEPAM 15 MG CAP PO PRN (22:18)
[2017-06-26] VITALS (10 sets, daily range): BP systolic 95–132; BP diastolic 60–83; PULSE 53–151; RESP 17–19; TEMP 95.9–98.9; O2SAT 94–98
[2017-06-26 05:07] LABS: AUTOMATED NEUTROPHIL # 6.8 TH/MM3 (1.8-7.7); BASOPHIL # 0.1 TH/MM3 (0-0.2); BASOPHIL % 0.7 % (0.0-2.0); EOSINOPHIL # 0.3 TH/MM3 (0-0.4); EOSINOPHIL % 3.1 % (0.0-4.0); HEMATOCRIT 45.6 % (39.0-51.0); HEMOGLOBIN 15.3 GM/DL (13.0-17.0); LYMPHOCYTE # 1.8 TH/MM3 (1.0-4.8); MEAN CELL VOLUME 94.6 FL (80.0-100.0); MEAN CORPUSCULAR HEMOGLOBIN 31.7 PG (27.0-34.0); MEAN CORPUSCULAR HGB CONC 33.5 % (32.0-36.0); MEAN PLATELET VOLUME 8.2 FL (7.0-11.0); MONO % 8.6 % (0.0-8.0); MONOCYTE # 0.8 TH/MM3 (0-0.9); NEUT % 69.6 % (16.0-70.0); PLATELET COUNT 211 TH/MM3 (150-450); RED BLOOD COUNT 4.82 MIL/MM3 (4.50-5.90); RED CELL DISTRIBUTION WIDTH 14.1 % (11.6-17.2); WHITE BLOOD COUNT 9.8 TH/MM3 (4.0-11.0)
[2017-06-26 05:35] LABS: ALBUMIN 3.3 GM/DL (3.4-5.0); ALKALINE PHOSPHATASE 101 U/L (45-117); ALT (GPT) 32 U/L (12-78); AST (GOT) 14 U/L (15-37); BICARBONATE 22.9 MEQ/L (21.0-32.0); BLOOD UREA NITROGEN 48 MG/DL (7-18); CALCIUM 8.6 MG/DL (8.5-10.1); CHLORIDE 105 MEQ/L (98-107); CREATININE 1.46 MG/DL (0.60-1.30); GLOMERULAR FILTRATION RATE 46 ML/MIN (>89); GLUCOSE,RANDOM 98 MG/DL (74-106); MAGNESIUM 2.4 MG/DL (1.5-2.5); PHOSPHORUS 3.5 MG/DL (2.5-4.9); SODIUM (NA) 140 MEQ/L (136-145); TOTAL BILIRUBIN ADULT 0.5 MG/DL (0.2-1.0); TOTAL PROTEIN 6.7 GM/DL (6.4-8.2)
[2017-06-26] MEDS: INSULIN ASPART SUPPLEMENTAL SCALE SQ SCH ×4 (08:00→21:00)
[2017-06-26] MEDS: PRAVASTATIN SOD 40 MG TAB PO SCH (10:41)
[2017-06-26] MEDS: ASPIRIN 81 MG CHEW TAB CHEW SCH (10:41)
[2017-06-26] MEDS: DOCUSATE SODIUM 50 MG/SENNA 8.6 MG TAB PO SCH ×2 (10:42→20:55)
[2017-06-26] MEDS: SODIUM CHLORIDE 0.9% FLUSH 10 ML FLUSH IV FLUSH SCH ×2 (10:43→20:55)
[2017-06-26] MEDS: METOPROLOL TARTRATE 25 MG TAB PO SCH ×2 (11:08→20:54)
[2017-06-26] MEDS: SPIRONOLACTONE 25 MG TAB PO SCH (11:08)
[2017-06-26] MEDS: RESP: ALBUTEROL 1.25 MG/3 ML NEB (PRN) NEB (11:35)
--- NOTE | 2017-06-26 12:54 | PD.CARD.PN ---
Subjective Subjective Remarks off O2, alert in nad Objective Medications Current Medications Medications (Trade) Dose Ordered Sig/Vladimir Route Start Time Stop Time Status Last Admin (NS Flush) 2 ml UNSCH PRN IV FLUSH 06/19/17 12:30 (NS Flush) 2 ml BID IV FLUSH 06/19/17 21:00 06/26/17 10:43 (Tylenol) 650 mg Q4H PRN PO 06/19/17 13:00 (Zofran Odt) 4 mg Q6H PRN PO 06/19/17 12:30 (Restoril) 15 mg HS PRN PO 06/19/17 13:00 06/25/17 22:18 (Lovenox Inj) 30 mg Q24H SQ 06/19/17 14:00 06/25/17 13:24 (Narcan Inj) 0.4 mg UNSCH PRN IV PUSH 06/19/17 12:30 (Roxanna-Colace) 1 tab BID PO 06/19/17 21:00 06/26/17 10:42 (Milk Of Magnesia Liq) 30 ml Q12H PRN PO 06/19/17 13:00 (Senokot) 17.2 mg Q12H PRN PO 06/19/17 13:00 (Dulcolax Supp) 10 mg DAILY PRN RECTAL 06/19/17 13:00 (Lactulose Liq) 30 ml DAILY PRN PO 06/19/17 13:00 (Aspirin Chew) 81 mg DAILY CHEW 06/19/17 13:00 06/26/17 10:41 (Lopressor) 12.5 mg BID PO 06/19/17 12:30 06/26/17 11:08 (Aldactone) 12.5 mg DAILY PO 06/19/17 13:00 06/26/17 11:08 (Pravachol) 40 mg DAILY PO 06/20/17 09:00 06/26/17 10:41 (Pill Splitter) 1 ea UNSCH PRN OTHER 06/19/17 13:15 (D50w (Vial) Inj) 50 ml UNSCH PRN IV PUSH 06/19/17 13:30 (Glucagon Inj) 1 mg UNSCH PRN OTHER 06/19/17 13:30 (NovoLOG SUPPLEMENTAL SCALE) 1 ACHS SLIDING SCALE SQ 06/19/17 17:00 06/25/17 22:18 (Albuterol Neb) 1.25 mg Q6HR NEB PRN NEB 06/20/17 16:15 06/26/17 11:35 Vital Signs / I&O Vital Signs Date Time Temp Pulse Resp B/P (MAP) Pulse Ox O2 Delivery O2 Flow Rate FiO2 06/26/17 11:39 97 Nasal Cannula 2.00 06/26/17 08:08 97.4 101 17 95/77 (83) 95 06/26/17 04:00 97.8 53 18 124/81 (95) 96 06/26/17 04:00 92 06/26/17 00:00 97.7 86 18 96/60 (72) 94 06/26/17 00:00 101 06/25/17 20:00 113 06/25/17 20:00 97.7 86 20 126/62 (83) 97 06/25/17 20:00 Nasal Cannula 2.00 06/25/17 20:00 Room Air 06/25/17 17:39 97 21 06/25/17 16:08 98.0 64 20 98/75 (83) 97 I/O 06/25/17 06/25/17 06/25/17 06/26/17 06/26/17 06/26/17 07:00 15:00 23:00 07:00 15:00 23:00 Intake Total 120 ml 480 ml 240 ml Output Total 1400 ml 400 ml Balance 120 ml -920 ml -160 ml Intake Oral 120 ml 480 ml 240 ml Output Urine Total 1400 ml 400 ml # Voids 4 # Bowel Movements 0 1 Physical Exam GENERAL: SKIN: Warm and dry. HEAD: Normocephalic. EYES: No scleral icterus. No injection or drainage. NECK: Supple, trachea midline. No JVD or lymphadenopathy. CARDIOVASCULAR: Regular rate and rhythm without murmurs, gallops, or rubs. RESPIRATORY: Breath sounds equal bilaterally. No accessory muscle use. GASTROINTESTINAL: Abdomen soft, non-tender, nondistended. MUSCULOSKELETAL: No cyanosis, or edema. BACK: Nontender without obvious deformity. No CVA tenderness. Laboratory Laboratory Tests Test 06/26/17 03:52 White Blood Count 9.8 TH/MM3 Red Blood Count 4.82 MIL/MM3 Hemoglobin 15.3 GM/DL Hematocrit 45.6 % Mean Corpuscular Volume 94.6 FL Mean Corpuscular Hemoglobin 31.7 PG Mean Corpuscular Hemoglobin Concent 33.5 % Red Cell Distribution Width 14.1 % Platelet Count 211 TH/MM3 Mean Platelet Volume 8.2 FL Neutrophils (%) (Auto) 69.6 % Lymphocytes (%) (Auto) 18.0 % Monocytes (%) (Auto) 8.6 % Eosinophils (%) (Auto) 3.1 % Basophils (%) (Auto) 0.7 % Neutrophils # (Auto) 6.8 TH/MM3 Lymphocytes # (Auto) 1.8 TH/MM3 Monocytes # (Auto) 0.8 TH/MM3 Eosinophils # (Auto) 0.3 TH/MM3 Basophils # (Auto) 0.1 TH/MM3 CBC Comment DIFF FINAL Differential Comment Blood Urea Nitrogen 48 MG/DL Creatinine 1.46 MG/DL Random Glucose 98 MG/DL Total Protein 6.7 GM/DL Albumin 3.3 GM/DL Calcium Level 8.6 MG/DL Phosphorus Level 3.5 MG/DL Magnesium Level 2.4 MG/DL Alkaline Phosphatase 101 U/L Aspartate Amino Transf (AST/SGOT) 14 U/L Alanine Aminotransferase (ALT/SGPT) 32 U/L Total Bilirubin 0.5 MG/DL Sodium Level 140 MEQ/L Potassium Level 3.6 MEQ/L Chloride Level 105 MEQ/L Carbon Dioxide Level 22.9 MEQ/L Anion Gap 12 MEQ/L Estimat Glomerular Filtration Rate 46 ML/MIN Assessment and Plan Problem List: (1) Cardiomyopathy ICD Codes: I42.9 - Cardiomyopathy, unspecified (2) CHF (congestive heart failure) ICD Codes: I50.9 - Heart failure, unspecified (3) Hypoxia ICD Codes: R09.02 - Hypoxemia (4) Dyspnea ICD Codes: R06.00 - Dyspnea, unspecified (5) HTN (hypertension) ICD Codes: I10 - Essential (primary) hypertension (6) Weakness ICD Codes: R53.1 - Weakness (7) Fatigue ICD Codes: R53.83 - Other fatigue Assessment and Plan 1.) Cardiomyopathy - bnp wnl, hypoxia and dyspnea appear disproportionate to degree of chf suggesting pulmonary etiology to his hypoxia and dyspnea, cta showing cpod and infiltrate, continue metoprolol, losartan, lasix, f/u bnp; v/ q scan negative, 2.) Ventricular ectopy - cath canceled due to arf, chest ct suggesting pulmonary etiology to dyspnea and improvement with bronchodilators; f/u EP consult for further assessment 3.) ARF - consult renal, cancel cath grant if creatinine not at baseline 4.) d/w daughter, Cheri, 06/23/17, 06/26/17, she is trying to send last cath report; Max Garcia MD June 26, 2017 12:54
[2017-06-26] MEDS: ENOXAPARIN SODIUM 30 MG/0.3 ML SYRINGE SQ SCH (14:12)
--- NOTE | 2017-06-26 14:17 | HHI.PR ---
Subjective Remarks 06-24 Nursing denies any deterioration since last night. Patient himself says he still feels short of breath intermittently while resting and truly thinks the DuoNeb treatments help. Patient is seen working with occupational therapy today, I noted that his saturations improved to 96 and 98% on room air while ambulating. 06-25 CATH WAS HELD BY CARDIOLOGY LABS PENDING DW RN AND PT AND CM SATING IN THE 90S ON ROOM AIR CURRENTLY DW OCCUPATIONAL THERAPY 06-26 slow improvement in KIDNEY FUNCTIONS DW RN AND PT AND CM AM LABS TRY TO WEAN OFF OXYGEN RENAL FUNCTIONS IMPROVED CATH PENDING??EPS STUDY INPT/ VS OUTPT Objective Vitals Vital Signs Date Time Temp Pulse Resp B/P (MAP) Pulse Ox O2 Delivery O2 Flow Rate FiO2 06/26/17 12:08 95.9 65 18 129/83 (98) 96 06/26/17 11:39 97 Nasal Cannula 2.00 06/26/17 08:08 97.4 101 17 95/77 (83) 95 06/26/17 04:00 97.8 53 18 124/81 (95) 96 06/26/17 04:00 92 06/26/17 00:00 97.7 86 18 96/60 (72) 94 06/26/17 00:00 101 06/25/17 20:00 113 06/25/17 20:00 97.7 86 20 126/62 (83) 97 06/25/17 20:00 Nasal Cannula 2.00 06/25/17 20:00 Room Air 06/25/17 17:39 97 21 06/25/17 16:08 98.0 64 20 98/75 (83) 97 I/O 06/25/17 06/25/17 06/25/17 06/26/17 06/26/17 06/26/17 07:00 15:00 23:00 07:00 15:00 23:00 Intake Total 120 ml 480 ml 240 ml Output Total 1400 ml 400 ml Balance 120 ml -920 ml -160 ml Intake Oral 120 ml 480 ml 240 ml Output Urine Total 1400 ml 400 ml # Voids 4 # Bowel Movements 0 1 Result Diagram: 06/26/17 0352 06/26/17 0352 Other Results Laboratory Tests Test 06/24/17 04:30 06/24/17 12:55 06/25/17 10:55 06/26/17 03:52 Blood Urea Nitrogen 60 MG/DL 50 MG/DL 48 MG/DL Creatinine 1.61 MG/DL 1.61 MG/DL 1.46 MG/DL Random Glucose 71 MG/DL 292 MG/DL 98 MG/DL Calcium Level 8.8 MG/DL 8.7 MG/DL 8.6 MG/DL Magnesium Level 2.5 MG/DL 2.3 MG/DL 2.4 MG/DL Sodium Level 142 MEQ/L 142 MEQ/L 140 MEQ/L Potassium Level 3.9 MEQ/L 4.3 MEQ/L 3.6 MEQ/L Chloride Level 107 MEQ/L 105 MEQ/L 105 MEQ/L Carbon Dioxide Level 22.8 MEQ/L 22.8 MEQ/L 22.9 MEQ/L Anion Gap 12 MEQ/L 14 MEQ/L 12 MEQ/L Estimat Glomerular Filtration Rate 41 ML/MIN 41 ML/MIN 46 ML/MIN B-Type Natriuretic Peptide 83 PG/ML Urine Color LIGHT-YELLOW Urine Turbidity CLEAR Urine pH 5.5 Urine Specific Hoffmeister 1.017 Urine Protein TRACE mg/dL Urine Glucose (UA) 1000 mg/dL Urine Ketones TRACE mg/dL Urine Occult Blood NEG Urine Nitrite NEG Urine Bilirubin NEG Urine Urobilinogen LESS THAN 2.0 MG/DL Urine Leukocyte Esterase TRACE Urine RBC 1 /hpf Urine WBC 5 /hpf Urine Bacteria RARE /hpf Urine Hyaline Casts 2 /lpf Microscopic Urinalysis Comment CULT NOT INDICATED Urine Osmolality 588 MOSM/KG Urine Random Creatinine 96.2 MG/DL Urine Random Sodium 35 MEQ/L White Blood Count 7.1 TH/MM3 9.8 TH/MM3 Red Blood Count 4.84 MIL/MM3 4.82 MIL/MM3 Hemoglobin 15.4 GM/DL 15.3 GM/DL Hematocrit 45.4 % 45.6 % Mean Corpuscular Volume 93.9 FL 94.6 FL Mean Corpuscular Hemoglobin 31.9 PG 31.7 PG Mean Corpuscular Hemoglobin Concent 33.9 % 33.5 % Red Cell Distribution Width 13.8 % 14.1 % Platelet Count 228 TH/MM3 211 TH/MM3 Mean Platelet Volume 8.1 FL 8.2 FL Neutrophils (%) (Auto) 74.9 % 69.6 % Lymphocytes (%) (Auto) 14.2 % 18.0 % Monocytes (%) (Auto) 7.4 % 8.6 % Eosinophils (%) (Auto) 2.6 % 3.1 % Basophils (%) (Auto) 0.9 % 0.7 % Neutrophils # (Auto) 5.4 TH/MM3 6.8 TH/MM3 Lymphocytes # (Auto) 1.0 TH/MM3 1.8 TH/MM3 Monocytes # (Auto) 0.5 TH/MM3 0.8 TH/MM3 Eosinophils # (Auto) 0.2 TH/MM3 0.3 TH/MM3 Basophils # (Auto) 0.1 TH/MM3 0.1 TH/MM3 CBC Comment DIFF FINAL DIFF FINAL Differential Comment Total Protein 8.2 GM/DL 6.7 GM/DL Albumin 3.2 GM/DL 3.3 GM/DL Phosphorus Level 3.4 MG/DL 3.5 MG/DL Alkaline Phosphatase 112 U/L 101 U/L Aspartate Amino Transf (AST/SGOT) 24 U/L 14 U/L Alanine Aminotransferase (ALT/SGPT) 34 U/L 32 U/L Total Bilirubin 0.7 MG/DL 0.5 MG/DL Hemoglobin A1c 7.3 % Free Thyroxine 1.58 NG/DL Thyroid Stimulating Hormone 3rd Gen 0.487 uIU/ML Imaging Last Impressions Renal Ultrasound 06/23/17 0000 Signed Impressions: Service Date/Time: Friday, June 23, 2017 11:10 - CONCLUSION: 1.1 cm polypoid mass base of the bladder. Multiple renal cysts without hydronephrosis. Cortex reasonably well-preserved. Dayron Bui MD FACR Chest CT 06/21/17 0000 Signed Impressions: Service Date/Time: Wednesday, June 21, 2017 19:39 - CONCLUSION: 1. Central lobar emphysema characteristic for COPD. 2. Nonspecific interstitial infiltrate involving the posterior right lower lung. This can be an acute or chronic basis. There no prior studies comparison. 3. 1.5 cm right adrenal mass most likely an adrenal adenoma. 4. Hepatic and right sided renal cysts. Leonides Platt MD Chest X-Ray 06/19/17 0805 Signed Impressions: Service Date/Time: June 08:51 - CONCLUSION: 1. Minimal basal atelectasis or scarring. No active disease. Mildly tortuous aorta. Alexys Aleman MD Lung Scan- Nuclear Medicine 06/19/17 0000 Signed Impressions: Service Date/Time: Tuesday, June 20, 2017 09:35 - CONCLUSION: 1. Low probability for pulmonary embolus. Alexys Aleman MD Objective Remarks GENERAL: Awake and alert and oriented talkative and cooperative somewhat hard of hearing SKIN: Warm and dry. HEAD: Atraumatic. Normocephalic. EYES: Pupils equal and round. No scleral icterus. No injection or drainage. Extraocular muscles intact ENT: No nasal bleeding or discharge. Mucous membranes pink and moist. Tongue is midline NECK: Trachea midline. No JVD. Supple CARDIOVASCULAR: Regular rate and rhythm. S1-S2 no S3 or S4 RESPIRATORY: No accessory muscle use. Clear to auscultation. Breath sounds equal bilaterally. Decreased breath sounds bilaterally GASTROINTESTINAL: Abdomen soft, non-tender, nondistended. Hepatic and splenic margins not palpable. MUSCULOSKELETAL: Extremities without clubbing, cyanosis, or edema. No obvious deformities. NEUROLOGICAL: Awake and alert. No obvious cranial nerve deficits. Motor grossly within normal limits. 4 out of 5 muscle strength in the arms and legs. Normal speech. PSYCHIATRIC: Appropriate mood and affect; insight and judgment normal. Medications and IVs Current Medications Sodium Chloride (NS Flush) 2 ml UNSCH PRN IVF FLUSH AFTER USING IV ACCESS; Start 06/19/17 at 08:15; Stop 06/20/17 at 16:15; Status DC Sodium Chloride (NS Flush) 2 ml UNSCH PRN IV FLUSH FLUSH AFTER USING IV ACCESS ; Start 06/19/17 at 12:30 Sodium Chloride (NS Flush) 2 ml BID IV FLUSH Last administered on 06/26/17at 10: 43; Start 06/19/17 at 21:00 Acetaminophen (Tylenol) 650 mg Q4H PRN PO TEMP > 100.4; Start 06/19/17 at 13:00 Ondansetron HCl (Zofran Odt) 4 mg Q6H PRN PO NAUSEA OR VOMITING; Start at 12:30 Temazepam (Restoril) 15 mg HS PRN PO INSOMNIA Last administered on 06/25/17at 22 :18; Start 06/19/17 at 13:00 Enoxaparin Sodium (Lovenox Inj) 30 mg Q24H SQ Last administered on 06/25/17at 13 :24; Start 06/19/17 at 14:00 Naloxone HCl (Narcan Inj) 0.4 mg UNSCH PRN IV PUSH SEE LABEL COMMENTS; Start at 12:30 Senna/Docusate Sodium (Roxanna-Colace) 1 tab BID PO Last administered on at 10:42; Start 06/19/17 at 21:00 Magnesium Hydroxide (Milk Of Magnesia Liq) 30 ml Q12H PRN PO Mild constipation ; Start 06/19/17 at 13:00 Sennosides (Senokot) 17.2 mg Q12H PRN PO Moderate constipation; Start 06/19/17 at 13:00 Bisacodyl (Dulcolax Supp) 10 mg DAILY PRN RECTAL SEVERE CONSITIPATION; Start at 13:00 Lactulose (Lactulose Liq) 30 ml DAILY PRN PO SEVERE CONSITIPATION; Start at 13:00 Aspirin (Aspirin Chew) 81 mg DAILY CHEW Last administered on 06/26/17at 10:41; Start 06/19/17 at 13:00 Metformin HCl (Glucophage) 500 mg BIDPC PO Last administered on 06/21/17at 17:59 ; Start 06/19/17 at 18:00; Stop 06/21/17 at 20:54; Status DC Metoprolol Tartrate (Lopressor) 12.5 mg BID PO Last administered on 06/26/17at 11:08; Start 06/19/17 at 12:30 Spironolactone (Aldactone) 12.5 mg DAILY PO Last administered on 06/26/17at 11: 08; Start 06/19/17 at 13:00 Losartan Potassium (Cozaar) 25 mg BID PO Last administered on 06/22/17at 08:15; Start 06/19/17 at 12:30; Stop 06/22/17 at 09:27; Status DC Pravastatin Sodium (Pravachol) 40 mg DAILY PO Last administered on 06/26/17at 10 :41; Start 06/20/17 at 09:00 Miscellaneous (Pill Splitter) 1 ea UNSCH PRN OTHER SEE LABEL COMMENTS; Start at 13:15 Dextrose (D50w (Vial) Inj) 50 ml UNSCH PRN IV PUSH HYPOGLYCEMIA-SEE COMMENTS; Start 06/19/17 at 13:30 Glucagon (Glucagon Inj) 1 mg UNSCH PRN OTHER HYPOGLYCEMIA-SEE COMMENTS; Start 06/19/17 at 13:30 Insulin Aspart (NovoLOG SUPPLEMENTAL SCALE) 1 ACHS SLIDING SCALE SQ Last administered on 06/25/17at 22:18; Start 06/19/17 at 17:00 Furosemide (Lasix Inj) 20 mg BID@09,18 IV PUSH Last administered on 06/22/17at 08:16; Start 06/19/17 at 14:00; Stop 06/22/17 at 09:27; Status DC Enalaprilat (Vasotec Inj) 1.25 mg Q6H PRN IV PUSH SBP>!60; Start 06/19/17 at 13 :30; Stop 06/22/17 at 09:27; Status DC Albuterol Sulfate (Albuterol Neb) 1.25 mg Q6HR NEB PRN NEB wheezing Last administered on 06/26/17at 11:35; Start 06/20/17 at 16:15 Iohexol (Omnipaque 350 Inj) 70 ml STK-MED ONCE IVCONTRAST Last administered on 06/21/17at 19:46; Start 06/21/17 at 19:46; Stop 06/21/17 at 19:47; Status DC Miscellaneous Information ([facility] Information) HOLD METFORMIN FOR... Q24H .XX ; Start 06/21/17 at 19:45; Stop 06/23/17 at 19:45; Status DC Metformin HCl (Glucophage) 500 mg BIDPC PO ; Start 06/24/17 at 09:00; Stop 06/24 at 09:00; Status DC Sodium Chloride 250 ml @ 250 mls/hr BOLUS ONCE IV Last administered on at 10:05; Start 06/22/17 at 09:30; Stop 06/22/17 at 10:29; Status DC A/P Assessment and Plan This is an 82-year-old male with history of cardiomyopathy, COPD, sleep apnea, diabetes mellitus, hypertension presenting with shortness of breath intermittent SOB - now likely 2/2 tachyarrhythmia given VQ low to indeterminate probability w/ sats now normalized, clinically improved today, ambulating without difficulty Tachyarrhythmia -PVCs with possible PACs -Cardiology is awaiting electrophysiology evaluation and outside cath report before proceeding with further workup Acute kidney injury -Likely may have been secondary to diuresis since BMP results came before contrast dye was infused; nephrology following -We will hold IV diuretics, holding ARB and Aldactone -I personally confirmed with lab as well as with CT, that the patient demonstrated worsening renal function before contrast was infused on 06/21 signifying more nephrotoxicity from IV diuresis as opposed to contrast-induced nephropathy, related to cardiology RENAL FOLLOWING CR IS 1.46 Mild chronic systolic chronic heart failure -Continue home metoprolol aspirin, hold Aldactone in light of SYEDA ECHO shows EF 45-55%. Hypertension, uncontrolled- on metoprolol, holding ARB given SYEDA Diabetes mellitus- holding metformin given SYEDA, on sliding scale insulin. AM LABS Labs today are pending IS A DNR- WILL MAKE DNR HERE Discharge Planning Continue physical therapy and Occupational Therapy May need SNF at discharge Dayron Arguelles DO June 26, 2017 14:17
--- NOTE | 2017-06-26 18:44 | MB ---
cc: Britni Cornell MD, Dalia MD DATE: 06/26/2017 REASON FOR CONSULTATION: Change in mental status, fatigue. HISTORY OF PRESENT ILLNESS: This is a pleasant 82-year-old gentleman admitted to the hospital on 06/19 with a history of cardiomyopathy, COPD, diabetes, hypertension, sleep apnea. He has been having very poor sleep for some time now due to his sleep apnea waking him up. He does state he snores and he wakes himself up and the other issue waking him is his prostate. He has to go the bathroom quite often in the middle of night. He feels fatigued all day. He has not gotten a good night's sleep more than an hour for some time now. He was on a CPAP machine when he was in [place]. He had a sleep study about a year ago, but he could not tolerate it. He wanted a different type of mask, but they did not give it to him so that he gave it back. PAST MEDICAL HISTORY: 1. History of BPH, 2. Sleep apnea, 3. Macular degeneration, 4. Diabetes 5. Hypertension, 6. COPD. HOME MEDICATIONS: 1. Benicar 2. Spironolactone. 3. Simvastatin. 4. Metoprolol. 5. Metformin. 6. Baby aspirin. ALLERGIES: PIOGLITAZONE, BEE VENOM, LISINOPRIL, ANT BITES. SOCIAL HISTORY: He socially drinks. He lives at [facility]. He has a lady friend for the last 17 years. They are not . He used to smoke 2 packs a day for 20 years, stopped 30 years ago. 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 He lives half a year here, half a year in [place]. PHYSICAL EXAMINATION: VITAL SIGNS: Temperature is 95.9, pulse 65, respiratory rate 18, blood pressure 129/83, satting at 96% on 2 liters. NEUROLOGIC: He is awake and alert. He is fluent. His pupils are reactive. Visual gaona full. Face symmetrical. Tongue midline. Motor burton, he does not exhibit any weakness, drift or leg lag. Cerebellar testing is normal. Toes are downgoing. Gait is withheld. LABORATORY DATA: Reviewed. His BUN is 48, creatinine is 1.46. LFTs are intact. B12 level was 702. TSH was normal. T4 was 1.58. TSH 0.487. Urine 1000 glucose. Culture was performed. Serology mono screen negative. IMAGING STUDIES: VQ scan low probability of PE. Chest x-ray: Minimal atelectasis or scarring. Tortuous aorta. Chest CT: Central lobar emphysema changes of COPD, nonspecific infiltrate right lower lung, acute or chronic. Renal ultrasound: Polypoid mass split base of bladder. Multiple renal cysts without hydronephrosis, cortex well preserved. IMPRESSION: An 82-year-old man. I do not find him confused. He is very clear with his speech. He does have what sounds like sleep apnea. He has had multiple studies in the past and was diagnosed and placed on CPAP, although he is not using it now. May be contributing to his excessive fatigue, daytime sleepiness, not rested, insomnia as well as his benign prostatic hypertrophy. I do not know if it is possible if pulmonary can recommend CPAP titration while he is here to see if he can tolerate it. Otherwise, he would need to be seen in the office and have another sleep study. Also, he states that he was receiving a sleep aid here and it has not worked for him. Certainly you can try something like Ambien instead of temazepam. However, he will have a CT of the brain. I see it is on order, but neurologically he is fairly intact. I do not think any other neurologic testing needs to be done. I think his excessive sleepiness is due to poor sleep at night, his sleep apnea and his increased urination at nighttime. He certainly can be seen in the office and have a sleep study set up and CPAP can be reordered as an outpatient. MD GARETT Barron/ , 05:24 PM , 06:43 PM
--- NOTE | 2017-06-26 20:35 | RADRPT ---
EXAM DATE/TIME: 06/26/2017 19:11 [facility] COMPARISON: No previous studies available for comparison. INDICATIONS : Altered mental status RADIATION DOSE: 39.65 CTDIvol (mGy) MEDICAL HISTORY : Hypertension. Chronic obstructive pulmonary disease. Diabetes, hand and face cancer SURGICAL HISTORY : None. ENCOUNTER: Initial ACUITY: 1 day PAIN SCALE: 0/10 LOCATION: cranial TECHNIQUE: Multiple contiguous axial images were obtained of the head. Using automated exposure control and adj ustment of the mA and/or kV according to patient size, radiation dose was kept as low as reasonably a chievable to obtain optimal diagnostic quality images. DICOM format image data is available electro nically for review and comparison. FINDINGS: CEREBRUM: The ventricles are normal for age. There is mild widening of the cortical sulci. Old lacunar infarct ion are seen and the genu of the internal capsule on the left, posterior right caudate head, and medi al right basal ganglia. No evidence of midline shift, mass lesion, hemorrhage or acute infarction. N o extra-axial fluid collections are seen. POSTERIOR FOSSA: The cerebellum and brainstem are intact. The 4th ventricle is midline. The cerebellopontine angle i s unremarkable. EXTRACRANIAL: The visualized portion of the orbits is intact. SKULL: The calvaria is intact. No evidence of skull fracture. CONCLUSION: 1. No acute abnormality seen. 2. Old lacunar infarcts. 3. Cerebral atrophy. John Rowell MD on June 26, 2017 at 20:31 Board Certified Radiologist. This report was verified electronically.
[2017-06-26] MEDS ORDERED: ZOLPIDEM TARTRATE 5 MG TAB PO ONE (21:30)
[2017-06-27] VITALS (11 sets, daily range): BP systolic 104–163; BP diastolic 57–93; PULSE 78–118; RESP 16–20; TEMP 97.9–98.9; O2SAT 94–97
[2017-06-27 05:08] LABS: AUTOMATED NEUTROPHIL # 4.5 TH/MM3 (1.8-7.7); BASOPHIL # 0.1 TH/MM3 (0-0.2); BASOPHIL % 0.7 % (0.0-2.0); EOSINOPHIL # 0.3 TH/MM3 (0-0.4); EOSINOPHIL % 4.2 % (0.0-4.0); HEMATOCRIT 43.4 % (39.0-51.0); LYMPH % 23.6 % (9.0-44.0); LYMPHOCYTE # 1.7 TH/MM3 (1.0-4.8); MEAN CELL VOLUME 92.9 FL (80.0-100.0); MEAN CORPUSCULAR HGB CONC 34.4 % (32.0-36.0); MEAN PLATELET VOLUME 8.3 FL (7.0-11.0); MONO % 7.5 % (0.0-8.0); MONOCYTE # 0.5 TH/MM3 (0-0.9); PLATELET COUNT 217 TH/MM3 (150-450); RED BLOOD COUNT 4.68 MIL/MM3 (4.50-5.90); RED CELL DISTRIBUTION WIDTH 13.7 % (11.6-17.2)
[2017-06-27 05:34] LABS: ALBUMIN 3.1 GM/DL (3.4-5.0); ALT (GPT) 32 U/L (12-78); AST (GOT) 17 U/L (15-37); BICARBONATE 24.3 MEQ/L (21.0-32.0); BLOOD UREA NITROGEN 42 MG/DL (7-18); CALCIUM 8.4 MG/DL (8.5-10.1); CHLORIDE 107 MEQ/L (98-107); CREATININE 1.34 MG/DL (0.60-1.30); GLOMERULAR FILTRATION RATE 51 ML/MIN (>89); GLUCOSE,RANDOM 149 MG/DL (74-106); MAGNESIUM 2.4 MG/DL (1.5-2.5); PHOSPHORUS 3.3 MG/DL (2.5-4.9); SODIUM (NA) 142 MEQ/L (136-145)
[2017-06-27 05:35] LABS: ALKALINE PHOSPHATASE 100 U/L (45-117); TOTAL BILIRUBIN ADULT 0.4 MG/DL (0.2-1.0); TOTAL PROTEIN 6.5 GM/DL (6.4-8.2)
[2017-06-27] MEDS: INSULIN ASPART SUPPLEMENTAL SCALE SQ SCH ×4 (09:01→21:00)
[2017-06-27] MEDS: DOCUSATE SODIUM 50 MG/SENNA 8.6 MG TAB PO SCH ×2 (09:03→21:19)
[2017-06-27] MEDS: METOPROLOL TARTRATE 25 MG TAB PO SCH ×2 (09:03→21:19)
[2017-06-27] MEDS: ASPIRIN 81 MG CHEW TAB CHEW SCH (09:03)
[2017-06-27] MEDS: SODIUM CHLORIDE 0.9% FLUSH 10 ML FLUSH IV FLUSH SCH ×2 (09:03→21:00)
[2017-06-27] MEDS: SPIRONOLACTONE 25 MG TAB PO SCH (09:03)
[2017-06-27] MEDS: PRAVASTATIN SOD 40 MG TAB PO SCH (09:03)
--- NOTE | 2017-06-27 09:35 | PD.CARD.PN ---
Subjective Subjective Remarks off O2, alert in nad, ambulating Objective Medications Current Medications Medications (Trade) Dose Ordered Sig/Vladimir Route Start Time Stop Time Status Last Admin (NS Flush) 2 ml UNSCH PRN IV FLUSH 06/19/17 12:30 (NS Flush) 2 ml BID IV FLUSH 06/19/17 21:00 06/27/17 09:03 (Tylenol) 650 mg Q4H PRN PO 06/19/17 13:00 (Zofran Odt) 4 mg Q6H PRN PO 06/19/17 12:30 (Lovenox Inj) 30 mg Q24H SQ 06/19/17 14:00 06/26/17 14:12 (Narcan Inj) 0.4 mg UNSCH PRN IV PUSH 06/19/17 12:30 (Roxanna-Colace) 1 tab BID PO 06/19/17 21:00 06/27/17 09:03 (Milk Of Magnesia Liq) 30 ml Q12H PRN PO 06/19/17 13:00 (Senokot) 17.2 mg Q12H PRN PO 06/19/17 13:00 (Dulcolax Supp) 10 mg DAILY PRN RECTAL 06/19/17 13:00 (Lactulose Liq) 30 ml DAILY PRN PO 06/19/17 13:00 (Aspirin Chew) 81 mg DAILY CHEW 06/19/17 13:00 06/27/17 09:03 (Lopressor) 12.5 mg BID PO 06/19/17 12:30 06/27/17 09:03 (Aldactone) 12.5 mg DAILY PO 06/19/17 13:00 06/27/17 09:03 (Pravachol) 40 mg DAILY PO 06/20/17 09:00 06/27/17 09:03 (Pill Splitter) 1 ea UNSCH PRN OTHER 06/19/17 13:15 (D50w (Vial) Inj) 50 ml UNSCH PRN IV PUSH 06/19/17 13:30 (Glucagon Inj) 1 mg UNSCH PRN OTHER 06/19/17 13:30 (NovoLOG SUPPLEMENTAL SCALE) 1 ACHS SLIDING SCALE SQ 06/19/17 17:00 06/27/17 09:01 (Albuterol Neb) 1.25 mg Q6HR NEB PRN NEB 06/20/17 16:15 5/17/18 11:35 Vital Signs / I&O Vital Signs Date Time Temp Pulse Resp B/P (MAP) Pulse Ox O2 Delivery O2 Flow Rate FiO2 06/27/17 08:10 98.0 79 18 117/66 (83) 97 06/27/17 04:00 98.9 98 16 136/83 (100) 96 06/27/17 04:00 118 06/27/17 00:00 97.9 92 17 104/57 (73) 94 06/27/17 00:00 99 06/26/17 20:00 101 06/26/17 20:00 98.9 94 19 119/72 (88) 98 06/26/17 19:00 97 Nasal Cannula 2.00 06/26/17 18:02 Nasal Cannula 2.00 06/26/17 16:08 97.2 68 18 132/80 (97) 97 06/26/17 15:37 85 06/26/17 12:08 95.9 65 18 129/83 (98) 96 06/26/17 11:39 97 Nasal Cannula 2.00 06/26/17 11:38 89 I/O 06/26/17 06/26/17 06/26/17 06/27/17 06/27/17 06/27/17 07:00 15:00 23:00 07:00 15:00 23:00 Intake Total 240 ml 360 ml 420 ml Output Total 400 ml 800 ml Balance -160 ml -440 ml 420 ml Intake Oral 240 ml 360 ml 420 ml Output Urine Total 400 ml 800 ml # Voids 4 # Bowel Movements 0 1 Physical Exam GENERAL: SKIN: Warm and dry. HEAD: Normocephalic. EYES: No scleral icterus. No injection or drainage. NECK: Supple, trachea midline. No JVD or lymphadenopathy. CARDIOVASCULAR: Regular rate and rhythm without murmurs, gallops, or rubs. RESPIRATORY: Breath sounds equal bilaterally. No accessory muscle use. GASTROINTESTINAL: Abdomen soft, non-tender, nondistended. MUSCULOSKELETAL: No cyanosis, or edema. BACK: Nontender without obvious deformity. No CVA tenderness. Laboratory Laboratory Tests Test 06/27/17 04:25 White Blood Count 7.0 TH/MM3 Red Blood Count 4.68 MIL/MM3 Hemoglobin 15.0 GM/DL Hematocrit 43.4 % Mean Corpuscular Volume 92.9 FL Mean Corpuscular Hemoglobin 32.0 PG Mean Corpuscular Hemoglobin Concent 34.4 % Red Cell Distribution Width 13.7 % Platelet Count 217 TH/MM3 Mean Platelet Volume 8.3 FL Neutrophils (%) (Auto) 64.0 % Lymphocytes (%) (Auto) 23.6 % Monocytes (%) (Auto) 7.5 % Eosinophils (%) (Auto) 4.2 % Basophils (%) (Auto) 0.7 % Neutrophils # (Auto) 4.5 TH/MM3 Lymphocytes # (Auto) 1.7 TH/MM3 Monocytes # (Auto) 0.5 TH/MM3 Eosinophils # (Auto) 0.3 TH/MM3 Basophils # (Auto) 0.1 TH/MM3 CBC Comment DIFF FINAL Differential Comment Blood Urea Nitrogen 42 MG/DL Creatinine 1.34 MG/DL Random Glucose 149 MG/DL Total Protein 6.5 GM/DL Albumin 3.1 GM/DL Calcium Level 8.4 MG/DL Phosphorus Level 3.3 MG/DL Magnesium Level 2.4 MG/DL Alkaline Phosphatase 100 U/L Aspartate Amino Transf (AST/SGOT) 17 U/L Alanine Aminotransferase (ALT/SGPT) 32 U/L Total Bilirubin 0.4 MG/DL Sodium Level 142 MEQ/L Potassium Level 3.8 MEQ/L Chloride Level 107 MEQ/L Carbon Dioxide Level 24.3 MEQ/L Anion Gap 11 MEQ/L Estimat Glomerular Filtration Rate 51 ML/MIN Assessment and Plan Problem List: (1) Cardiomyopathy ICD Codes: I42.9 - Cardiomyopathy, unspecified (2) CHF (congestive heart failure) ICD Codes: I50.9 - Heart failure, unspecified (3) Hypoxia ICD Codes: R09.02 - Hypoxemia (4) Dyspnea ICD Codes: R06.00 - Dyspnea, unspecified (5) HTN (hypertension) ICD Codes: I10 - Essential (primary) hypertension (6) Weakness ICD Codes: R53.1 - Weakness (7) Fatigue ICD Codes: R53.83 - Other fatigue Assessment and Plan 1.) Cardiomyopathy - bnp wnl, hypoxia and dyspnea appear disproportionate to degree of chf suggesting pulmonary etiology to his hypoxia and dyspnea, cta showing cpod and infiltrate, continue metoprolol, losartan, lasix, f/u bnp; v/ q scan negative, 2.) Ventricular ectopy - cath canceled due to arf, chest ct suggesting pulmonary etiology to dyspnea and improvement with bronchodilators; f/u EP consult for further assessment; d/w Dr Black 06/27/17, he will see today 3.) ARF - consult renal, cancel cath grant if creatinine not at baseline 4.) d/w daughter, Cheri, 06/23/17, 06/26/17, she is trying to send last cath report; Max Garcia MD June 27, 2017 09:35
--- NOTE | 2017-06-27 12:02 | HHI.NPPN ---
Subjective General Problems: Heart Disease Renal Failure: Acute History of Present Illness 82 male with past medical history of diabetes, chronic obstructive pulmonary disease, history of cardiomyopathy, hyperlipidemia, BPH, and sleep apnea. Presents to Emergency room with acute shortness of breath. Nephrology is consulted for elevated creatinine . Additional Remarks Patient is alert and oriented. Going for walk in shafer. (Chantal Coppola) Review of Systems Respiratory Lungs: SOB Respiratory Remarks Improving (Chantal Coppola) Objective Data Data Vital Signs Date Time Temp Pulse Resp B/P (MAP) Pulse Ox O2 Delivery O2 Flow Rate FiO2 06/27/17 08:10 98.0 79 18 117/66 (83) 97 06/27/17 08:00 Nasal Cannula 2.00 06/27/17 04:00 98.9 98 16 136/83 (100) 96 06/27/17 04:00 118 06/27/17 00:00 97.9 92 17 104/57 (73) 94 06/27/17 00:00 99 06/26/17 20:00 101 06/26/17 20:00 98.9 94 19 119/72 (88) 98 06/26/17 19:00 97 Nasal Cannula 2.00 06/26/17 18:02 Nasal Cannula 2.00 06/26/17 16:08 97.2 68 18 132/80 (97) 97 06/26/17 15:37 85 06/26/17 12:08 95.9 65 18 129/83 (98) 96 (Chantal Coppola) -: 06/27/17 0425 06/27/17 0425 Imaging Last Impressions Head CT 06/26/17 0000 Signed Impressions: Service Date/Time: June 19:11 - CONCLUSION: 1. No acute abnormality seen. 2. Old lacunar infarcts. 3. Cerebral atrophy. John Rowell MD Renal Ultrasound 06/23/17 0000 Signed Impressions: Service Date/Time: Friday, June 23, 2017 11:10 - CONCLUSION: 1.1 cm polypoid mass base of the bladder. Multiple renal cysts without hydronephrosis. Cortex reasonably well-preserved. Dayron Bui MD FACR Chest CT 06/21/17 0000 Signed Impressions: Service Date/Time: Wednesday, June 21, 2017 19:39 - CONCLUSION: 1. Central lobar emphysema characteristic for COPD. 2. Nonspecific interstitial infiltrate involving the posterior right lower lung. This can be an acute or chronic basis. There no prior studies comparison. 3. 1.5 cm right adrenal mass most likely an adrenal adenoma. 4. Hepatic and right sided renal cysts. Leonides Platt MD Chest X-Ray 06/19/17 0805 Signed Impressions: Service Date/Time: June 08:51 - CONCLUSION: 1. Minimal basal atelectasis or scarring. No active disease. Mildly tortuous aorta. Alexys Aleman MD Lung Scan-V Nuclear Medicine 06/19/17 0000 Signed Impressions: Service Date/Time: Tuesday, June 20, 2017 09:35 - CONCLUSION: 1. Low probability for pulmonary embolus. Alexys Aleman MD (Chantal Coppola) Physical Exam General Appearance: No Acute Distress, Comfortable (Chantal Coppola) Throat Throat Exam: Oral Mucosa [place] & Moist (Chantal Coppola) Neck Neck Exam: Neck Supple (Chantal Coppola) Pulmonary Resp Exam: No Distress, Rhonchi, Decreased Bases, Diminished Breath Sounds (Chantal Coppola) Neurologic Neuro Exam: Alert, Awake (Chantal Coppola) Psychiatric Psych Exam: Appropriate Responses (Chantal Coppola) Assessment/Plan Problem List: (1) Acute kidney injury ICD Codes: N17.9 - Acute kidney failure, unspecified Plan: Acute kidney injury with a creatinine of 1.70 today which is down from yesterday at 1.84. SYEDA could be prerenal with diuresis FeNA at 0.43 % suggestive of prerenal Plan Continue to hold ARB If patient is to have heart catheterization recommend to hang IVF NS 12 hours prior to procedure and 12 hours after and administer mucomyst Per cardiology note heart cath is on hold until creatinine is at baseline. If Creatinine continue to improve or same, can have Cardiac Cath. with almost 10 % risk of Worsening renal function. This was discussed with the patient per Dr. Olson. Creatinine is improving daily at 1.34 today. (2) HTN (hypertension) ICD Codes: I10 - Essential (primary) hypertension Plan: will controlled (3) Dyspnea ICD Codes: R06.00 - Dyspnea, unspecified Plan: shortness of breath improving (4) CHF (congestive heart failure) ICD Codes: I50.9 - Heart failure, unspecified Plan: Lasix is on hold (Chantal Coppola) Problem List: (1) Acute kidney injury ICD Codes: N17.9 - Acute kidney failure, unspecified Plan: Acute kidney injury with a creatinine of 1.70 today which is down from yesterday at 1.84. SYEDA could be prerenal with diuresis FeNA at 0.43 % suggestive of prerenal Plan Continue to hold ARB If patient is to have heart catheterization recommend to hang IVF NS 12 hours prior to procedure and 12 hours after and administer mucomyst Per cardiology note heart cath is on hold until creatinine is at baseline. If Creatinine continue to improve or same, can have Cardiac Cath. with almost 10 % risk of Worsening renal function. This was discussed with the patient per Dr. Olson. Creatinine is improving daily at 1.34 today. Patient seen and examined, agree with above. Creatinine improving. (2) HTN (hypertension) ICD Codes: I10 - Essential (primary) hypertension Plan: will controlled (3) Dyspnea ICD Codes: R06.00 - Dyspnea, unspecified Plan: shortness of breath improving (4) CHF (congestive heart failure) ICD Codes: I50.9 - Heart failure, unspecified Plan: Lasix is on hold (Nevin Olson MD) Chantal Coppola June 27, 2017 12:02 Nevin Olson MD June 30, 2017 19:25
--- NOTE | 2017-06-27 13:37 | MB ---
cc: Aakash Black MD,Max Wiley MD DATE: 06/27/2017 REASON FOR CONSULTATION: Tachyarrhythmia. HISTORY OF PRESENT ILLNESS: Mr. Valerio is an 82-year-old gentleman with history of high blood pressure and diabetes mellitus. He just moved to the area a couple of weeks ago, was admitted due to generalized weakness. During hospitalization, he was seen by Dr. Garcia. An irregular tachyarrhythmia was found. There are multiple PVCs. I was consulted for evaluation and management. The chart was reviewed. The patient was evaluated. ALLERGIES: LISINOPRIL. PIOGLITAZONE. BEE VENOM. ANT BITES. SOCIAL HISTORY: Drinks occasionally. FAMILY HISTORY: Noncontributory to his current medical condition. MEDICATIONS: 1. Insulin. 2. Lovenox. 3. Glucagon. 4. Pravachol 40 mg a day. 5. Aspirin. 6. Metoprolol 12.5 mg twice a day. REVIEW OF SYSTEMS: Currently, the patient is feeling okay, is tired, but no chest pain or chest discomfort. PHYSICAL EXAMINATION: GENERAL: Alert, fully oriented. The patient was in the bathroom moving to his bed when I entered into the room. VITAL SIGNS: Blood pressure 117/66, pulse 79, respiratory rate 18. LUNGS: Ventilated. CARDIOVASCULAR: S1, S2. No gallop. Irregular. ABDOMEN: Obese. No mass. No bruit. EXTREMITIES: No edema. Electrocardiogram from hospitalization indicates possible sinus rhythm with PVCs, right bundle branch block, diffuse ST changes. LABORATORY DATA: Hemoglobin is 15.0, white blood cell 7.0. Potassium is 3.8, creatinine 1.34. INR is 1.0. ASSESSMENT AND RECOMMENDATIONS: Mr. Valerio is asymptomatic. His condition is significantly improved. He has shortness of breath on hospitalization that resolved. He was complaining about premature ventricular contractions. He had a cardiac catheterization done apparently last year. He had two in the past two years; both of them were clean based on the conversation with his daughter who is a nurse. The gentleman does not complain about shortness of breath. The telemetry I am seeing right now indicates atrial fibrillation. This is not atrial bigeminy. This is clearly atrial fibrillation. I will re-analyze his telemetry on multiple occasions. I discussed the case twice with the daughter who I mentioned is a nurse as well as Dr. Garcia. This gentleman is a CHADS-VASc 3, some family history of cerebrovascular accident. He will need anticoagulation. I am not sure the daughter is for it, but this is my recommendation. Heart rate will need to be controlled, currently is in the 90s to 100s. He is now on metoprolol 12.5 mg twice a day. The daughter said the metoprolol is too high for him because sometimes the heart rate drops in the 60s or 50s. I explained to her it is most important to control the heart rate. If the patient is symptomatic in the 50s, that is a different ball game, otherwise we should not look at the numbers to decide if the patient is going to have the medication. Beta blockers need to be readjusted or calcium channel solomon, whatever they want to use. As mentioned before, anticoagulation should be strongly considered. The case was discussed with Dr. Garcia. I would be available on a p.r.n. basis. MD DAVID Ferrer/SB , 12:49 PM , 01:36 PM
[2017-06-27] MEDS: ENOXAPARIN SODIUM 30 MG/0.3 ML SYRINGE SQ SCH (15:15)
--- NOTE | 2017-06-27 15:32 | HHI.PR ---
Subjective Remarks 06-24 Nursing denies any deterioration since last night. Patient himself says he still feels short of breath intermittently while resting and truly thinks the DuoNeb treatments help. Patient is seen working with occupational therapy today, I noted that his saturations improved to 96 and 98% on room air while ambulating. 06-25 CATH WAS HELD BY CARDIOLOGY LABS PENDING [facility]RON RN AND PT AND CM SATING IN THE 90S ON ROOM AIR CURRENTLY DW OCCUPATIONAL THERAPY 06-26 slow improvement in KIDNEY FUNCTIONS DW RN AND PT AND CM AM LABS TRY TO WEAN OFF OXYGEN RENAL FUNCTIONS IMPROVED CATH PENDING??EPS STUDY INPT/ VS OUTPT 06-27 SEEN BY NEUROLOGY- THEY FEEL HE HAS KALYAN AND NEEDS CPAP OR BIPAP AT HOME AND NEEDS SLEEP STUDY SEEN BY CARDIOLOGY AND EP NEEDS ANTICOAGULATION [facility] RN AND PT AND CM AND FAMILY- DAUGHTER EXTENSIVELY ON 06-26 AND 06-27 GREATER THAN 30 MIN ON 06-26 AND OVER 20 MIN ON 06-27 Objective Vitals Vital Signs Date Time Temp Pulse Resp B/P (MAP) Pulse Ox O2 Delivery O2 Flow Rate FiO2 06/27/17 12:30 98.3 94 20 125/82 (96) 97 06/27/17 11:57 Nasal Cannula 2.00 06/27/17 08:10 98.0 79 18 117/66 (83) 97 06/27/17 08:00 Nasal Cannula 2.00 06/27/17 04:00 98.9 98 16 136/83 (100) 96 06/27/17 04:00 118 06/27/17 00:00 97.9 92 17 104/57 (73) 94 06/27/17 00:00 99 06/26/17 20:00 101 06/26/17 20:00 98.9 94 19 119/72 (88) 98 06/26/17 19:00 97 Nasal Cannula 2.00 06/26/17 18:02 Nasal Cannula 2.00 06/26/17 16:08 97.2 68 18 132/80 (97) 97 06/26/17 15:37 85 I/O 06/26/17 06/26/17 06/26/17 06/27/17 06/27/17 06/27/17 07:00 15:00 23:00 07:00 15:00 23:00 Intake Total 240 ml 360 ml 420 ml Output Total 400 ml 800 ml Balance -160 ml -440 ml 420 ml Intake Oral 240 ml 360 ml 420 ml Output Urine Total 400 ml 800 ml # Voids 4 # Bowel Movements 0 1 Result Diagram: 06/27/17 0425 06/27/17 0425 Other Results Laboratory Tests Test 06/25/17 10:55 06/26/17 03:52 06/27/17 04:25 White Blood Count 7.1 TH/MM3 9.8 TH/MM3 7.0 TH/MM3 Red Blood Count 4.84 MIL/MM3 4.82 MIL/MM3 4.68 MIL/MM3 Hemoglobin 15.4 GM/DL 15.3 GM/DL 15.0 GM/DL Hematocrit 45.4 % 45.6 % 43.4 % Mean Corpuscular Volume 93.9 FL 94.6 FL 92.9 FL Mean Corpuscular Hemoglobin 31.9 PG 31.7 PG 32.0 PG Mean Corpuscular Hemoglobin Concent 33.9 % 33.5 % 34.4 % Red Cell Distribution Width 13.8 % 14.1 % 13.7 % Platelet Count 228 TH/MM3 211 TH/MM3 217 TH/MM3 Mean Platelet Volume 8.1 FL 8.2 FL 8.3 FL Neutrophils (%) (Auto) 74.9 % 69.6 % 64.0 % Lymphocytes (%) (Auto) 14.2 % 18.0 % 23.6 % Monocytes (%) (Auto) 7.4 % 8.6 % 7.5 % Eosinophils (%) (Auto) 2.6 % 3.1 % 4.2 % Basophils (%) (Auto) 0.9 % 0.7 % 0.7 % Neutrophils # (Auto) 5.4 TH/MM3 6.8 TH/MM3 4.5 TH/MM3 Lymphocytes # (Auto) 1.0 TH/MM3 1.8 TH/MM3 1.7 TH/MM3 Monocytes # (Auto) 0.5 TH/MM3 0.8 TH/MM3 0.5 TH/MM3 Eosinophils # (Auto) 0.2 TH/MM3 0.3 TH/MM3 0.3 TH/MM3 Basophils # (Auto) 0.1 TH/MM3 0.1 TH/MM3 0.1 TH/MM3 CBC Comment DIFF FINAL DIFF FINAL DIFF FINAL Differential Comment Blood Urea Nitrogen 50 MG/DL 48 MG/DL 42 MG/DL Creatinine 1.61 MG/DL 1.46 MG/DL 1.34 MG/DL Random Glucose 292 MG/DL 98 MG/DL 149 MG/DL Total Protein 8.2 GM/DL 6.7 GM/DL 6.5 GM/DL Albumin 3.2 GM/DL 3.3 GM/DL 3.1 GM/DL Calcium Level 8.7 MG/DL 8.6 MG/DL 8.4 MG/DL Phosphorus Level 3.4 MG/DL 3.5 MG/DL 3.3 MG/DL Magnesium Level 2.3 MG/DL 2.4 MG/DL 2.4 MG/DL Alkaline Phosphatase 112 U/L 101 U/L 100 U/L Aspartate Amino Transf (AST/SGOT) 24 U/L 14 U/L 17 U/L Alanine Aminotransferase (ALT/SGPT) 34 U/L 32 U/L 32 U/L Total Bilirubin 0.7 MG/DL 0.5 MG/DL 0.4 MG/DL Sodium Level 142 MEQ/L 140 MEQ/L 142 MEQ/L Potassium Level 4.3 MEQ/L 3.6 MEQ/L 3.8 MEQ/L Chloride Level 105 MEQ/L 105 MEQ/L 107 MEQ/L Carbon Dioxide Level 22.8 MEQ/L 22.9 MEQ/L 24.3 MEQ/L Anion Gap 14 MEQ/L 12 MEQ/L 11 MEQ/L Estimat Glomerular Filtration Rate 41 ML/MIN 46 ML/MIN 51 ML/MIN Hemoglobin A1c 7.3 % Free Thyroxine 1.58 NG/DL Thyroid Stimulating Hormone 3rd Gen 0.487 uIU/ML Imaging Last Impressions Head CT 06/26/17 0000 Signed Impressions: Service Date/Time: June 19:11 - CONCLUSION: 1. No acute abnormality seen. 2. Old lacunar infarcts. 3. Cerebral atrophy. John Rowell MD Renal Ultrasound 06/23/17 0000 Signed Impressions: Service Date/Time: Friday, June 23, 2017 11:10 - CONCLUSION: 1.1 cm polypoid mass base of the bladder. Multiple renal cysts without hydronephrosis. Cortex reasonably well-preserved. Dayron Bui MD FACR Chest CT 06/21/17 0000 Signed Impressions: Service Date/Time: Wednesday, June 21, 2017 19:39 - CONCLUSION: 1. Central lobar emphysema characteristic for COPD. 2. Nonspecific interstitial infiltrate involving the posterior right lower lung. This can be an acute or chronic basis. There no prior studies comparison. 3. 1.5 cm right adrenal mass most likely an adrenal adenoma. 4. Hepatic and right sided renal cysts. Leonides Platt MD Chest X-Ray 06/19/17 0805 Signed Impressions: Service Date/Time: June 08:51 - CONCLUSION: 1. Minimal basal atelectasis or scarring. No active disease. Mildly tortuous aorta. Alexys Aleman MD Lung Scan-V Nuclear Medicine 06/19/17 0000 Signed Impressions: Service Date/Time: Tuesday, June 20, 2017 09:35 - CONCLUSION: 1. Low probability for pulmonary embolus. Alexys Aleman MD Objective Remarks GENERAL: Awake and alert and oriented talkative and cooperative somewhat hard of hearing SKIN: Warm and dry. HEAD: Atraumatic. Normocephalic. EYES: Pupils equal and round. No scleral icterus. No injection or drainage. Extraocular muscles intact ENT: No nasal bleeding or discharge. Mucous membranes pink and moist. Tongue is midline NECK: Trachea midline. No JVD. Supple CARDIOVASCULAR: Regular rate and rhythm. S1-S2 no S3 or S4 RESPIRATORY: No accessory muscle use. Clear to auscultation. Breath sounds equal bilaterally. Decreased breath sounds bilaterally GASTROINTESTINAL: Abdomen soft, non-tender, nondistended. Hepatic and splenic margins not palpable. MUSCULOSKELETAL: Extremities without clubbing, cyanosis, or edema. No obvious deformities. NEUROLOGICAL: Awake and alert. No obvious cranial nerve deficits. Motor grossly within normal limits. 4 out of 5 muscle strength in the arms and legs. Normal speech. PSYCHIATRIC: Appropriate mood and affect; insight and judgment normal. Medications and IVs Current Medications Sodium Chloride (NS Flush) 2 ml UNSCH PRN IVF FLUSH AFTER USING IV ACCESS; Start 06/19/17 at 08:15; Stop 06/20/17 at 16:15; Status DC Sodium Chloride (NS Flush) 2 ml UNSCH PRN IV FLUSH FLUSH AFTER USING IV ACCESS ; Start 06/19/17 at 12:30 Sodium Chloride (NS Flush) 2 ml BID IV FLUSH Last administered on 06/27/17at 09: 03; Start 06/19/17 at 21:00 Acetaminophen (Tylenol) 650 mg Q4H PRN PO TEMP > 100.4; Start 06/19/17 at 13:00 Ondansetron HCl (Zofran Odt) 4 mg Q6H PRN PO NAUSEA OR VOMITING; Start at 12:30 Temazepam (Restoril) 15 mg HS PRN PO INSOMNIA Last administered on 06/25/17at 22 :18; Start 06/19/17 at 13:00; Stop 06/26/17 at 15:55; Status DC Enoxaparin Sodium (Lovenox Inj) 30 mg Q24H SQ Last administered on 06/27/17at 15 :15; Start 06/19/17 at 14:00 Naloxone HCl (Narcan Inj) 0.4 mg UNSCH PRN IV PUSH SEE LABEL COMMENTS; Start at 12:30 Senna/Docusate Sodium (Roxanna-Colace) 1 tab BID PO Last administered on at 09:03; Start 06/19/17 at 21:00 Magnesium Hydroxide (Milk Of Magnesia Liq) 30 ml Q12H PRN PO Mild constipation ; Start 06/19/17 at 13:00 Sennosides (Senokot) 17.2 mg Q12H PRN PO Moderate constipation; Start 06/19/17 at 13:00 Bisacodyl (Dulcolax Supp) 10 mg DAILY PRN RECTAL SEVERE CONSITIPATION; Start at 13:00 Lactulose (Lactulose Liq) 30 ml DAILY PRN PO SEVERE CONSITIPATION; Start at 13:00 Aspirin (Aspirin Chew) 81 mg DAILY CHEW Last administered on 06/27/17at 09:03; Start 06/19/17 at 13:00 Metformin HCl (Glucophage) 500 mg BIDPC PO Last administered on 06/21/17at 17:59 ; Start 06/19/17 at 18:00; Stop 06/21/17 at 20:54; Status DC Metoprolol Tartrate (Lopressor) 12.5 mg BID PO Last administered on 06/27/17at 09:03; Start 06/19/17 at 12:30 Spironolactone (Aldactone) 12.5 mg DAILY PO Last administered on 06/27/17at 09: 03; Start 06/19/17 at 13:00 Losartan Potassium (Cozaar) 25 mg BID PO Last administered on 06/22/17at 08:15; Start 06/19/17 at 12:30; Stop 06/22/17 at 09:27; Status DC Pravastatin Sodium (Pravachol) 40 mg DAILY PO Last administered on 06/27/17at 09 :03; Start 06/20/17 at 09:00 Miscellaneous (Pill Splitter) 1 ea UNSCH PRN OTHER SEE LABEL COMMENTS; Start at 13:15 Dextrose (D50w (Vial) Inj) 50 ml UNSCH PRN IV PUSH HYPOGLYCEMIA-SEE COMMENTS; Start 06/19/17 at 13:30 Glucagon (Glucagon Inj) 1 mg UNSCH PRN OTHER HYPOGLYCEMIA-SEE COMMENTS; Start 06/19/17 at 13:30 Insulin Aspart (NovoLOG SUPPLEMENTAL SCALE) 1 ACHS SLIDING SCALE SQ Last administered on 06/27/17at 12:00; Start 06/19/17 at 17:00 Furosemide (Lasix Inj) 20 mg BID@09,18 IV PUSH Last administered on 06/22/17at 08:16; Start 06/19/17 at 14:00; Stop 06/22/17 at 09:27; Status DC Enalaprilat (Vasotec Inj) 1.25 mg Q6H PRN IV PUSH SBP>!60; Start 06/19/17 at 13 :30; Stop 06/22/17 at 09:27; Status DC Albuterol Sulfate (Albuterol Neb) 1.25 mg Q6HR NEB PRN NEB wheezing Last administered on 06/26/17at 11:35; Start 06/20/17 at 16:15 Iohexol (Omnipaque 350 Inj) 70 ml STK-MED ONCE IVCONTRAST Last administered on 06/21/17at 19:46; Start 06/21/17 at 19:46; Stop 06/21/17 at 19:47; Status DC Miscellaneous Information ([facility] [place] [facility]) HOLD METFORMIN FOR... Q24H .XX ; Start 06/21/17 at 19:45; Stop 06/23/17 at 19:45; Status DC Metformin HCl (Glucophage) 500 mg BIDPC PO ; Start 06/24/17 at 09:00; Stop 06/24 at 09:00; Status DC Sodium Chloride 250 ml @ 250 mls/hr BOLUS ONCE IV Last administered on at 10:05; Start 06/22/17 at 09:30; Stop 06/22/17 at 10:29; Status DC Zolpidem Tartrate (Ambien) 5 mg ONCE ONCE PO Last administered on 06/26/17at 21 :31; Start 06/26/17 at 21:30; Stop 06/26/17 at 21:31; Status DC A/P Assessment and Plan This is an 82-year-old male with history of cardiomyopathy, COPD, sleep apnea, diabetes mellitus, hypertension presenting with shortness of breath intermittent SOB - now likely 2/2 tachyarrhythmia given VQ low to indeterminate probability w/ sats now normalized, clinically improved today, ambulating without difficulty Tachyarrhythmia -PVCs with possible PACs -Cardiology is awaiting electrophysiology evaluation and outside cath report before proceeding with further workup Acute kidney injury -Likely may have been secondary to diuresis since BMP results came before contrast dye was infused; nephrology following -We will hold IV diuretics, holding ARB and Aldactone -I personally confirmed with lab as well as with CT, that the patient demonstrated worsening renal function before contrast was infused on 06/21 signifying more nephrotoxicity from IV diuresis as opposed to contrast-induced nephropathy, related to cardiology RENAL FOLLOWING CR IS 1.34 IMPROVING Mild chronic systolic chronic heart failure -Continue home metoprolol aspirin, hold Aldactone in light of SYEDA ECHO shows EF 45-55%. Hypertension, uncontrolled- on metoprolol, holding ARB given SYEDA Diabetes mellitus- holding metformin given SYEDA, on sliding scale insulin. AM LABS Labs today are pending IS A DNR- WILL MAKE DNR HERE CONSULT PULM FOR KALYAN SEEN BY EP NEEDS ANTICOAGULATION SEEN BY NEUROLOGY RECOMMENDS SLEEP STUDY AND PULM FOR CPAP/BIPAP WILL START ELIQUIS 5MG PO BID Discharge Planning Continue physical therapy and Occupational Therapy May need SNF at discharge Dayron Arguelles DO June 27, 2017 15:32
[2017-06-27] MEDS ORDERED: MELATONIN 5 MG TAB PO PRN (20:15)
[2017-06-27] MEDS: APIXABAN 5 MG TABLET PO SCH (21:19)
--- NOTE | 2017-06-28 00:30 | MB ---
cc: Rl Shine MD DATE: 06/27/2017 REASON FOR CONSULTATION: Shortness of breath. HISTORY OF PRESENT ILLNESS: Mr. Valerio is an 82-year-old male with a known history of hypertension as well as diabetes mellitus. He was told he had COPD in the past and was given bronchodilator therapy, which he has not been using, by a resident engineer in [place] or [place]. He states he is short of breath after walking a few steps and cannot perform his usual activities without getting short of breath since March of this year. He has no fever, no chills. No cough, no expectoration. No hemoptysis. No history of TB or industrial exposure. He used to smoke; however, has not smoked in 30 years. PAST MEDICAL HISTORY: Diabetes mellitus, hypertension. No previous history of coronary artery disease. History of COPD as mentioned above. SOCIAL HISTORY: Remote smoking history, stopped smoking 30 years ago. MEDICATIONS AT PRESENT: Include insulin, Lovenox, glucagon, Pravachol, aspirin, metoprolol. ALLERGIES: LISINOPRIL, PIOGLITAZONE, BEE VENOM AND BITES. FAMILY HISTORY: Noncontributory. REVIEW OF SYSTEMS: A 12-point review of systems As per HPI and past history, otherwise negative. PHYSICAL EXAMINATION: GENERAL: Alert. VITAL SIGNS: Temperature 98, pulse 80, respiration 18, blood pressure 117/66. His pulse is irregular. HEENT: Unremarkable. Eyes without icterus. NECK: Without adenopathy or thyroid enlargement. Central trachea. CHEST: No dullness to percussion. Clear to auscultation. HEART: PMI not appreciated. S1 irregularity noted. ABDOMEN: Lax. Bowel sounds are audible. EXTREMITIES: No clubbing, cyanosis or edema. LABORATORY DATA: White count is 7000, hemoglobin 15, hematocrit 43, platelets 217,000. Sodium 142, potassium 3.8, BUN 42, creatinine 0.3. INR 1.0. A chest CT done on 06/21/2017 is with COPD changes, interstitial change right lower lung posteriorly noted, an adrenal mass, 1.5 cm, felt to be an adenoma; hepatic and right renal cyst. IMPRESSION: 1. Shortness of breath, likely related to chronic obstructive pulmonary disease. 2. Atrial fibrillation. 3. Hypertension. 4. Diabetes mellitus. PLAN: The patient does have shortness of breath. He does have atrial fibrillation. Underlying cardiac disease need to be ruled out. He does have a remote smoking history; however, there is evidence of emphysematous changes by CT which seems to be a likely cause of shortness of breath, although other etiologies may be involved. We will check his pulmonary function and initiate bronchodilator therapy as needed. He is without shortness of breath at rest at this time. I do thank you for asking me to partake in Mr. Valerio's care. Sincerely, Rl Shine MD WWW/CARINE , 11:15 PM , 12:29 AM
[2017-06-28 03:42] VITALS: PULSE 87
[2017-06-28 04:00] VITALS: BP 134/98; PULSE 60; RESP 18; TEMP 97.4; O2SAT 97
[2017-06-28 08:00] VITALS: BP 105/59; PULSE 103; PULSE 83; RESP 20; TEMP 97.9; O2SAT 93
[2017-06-28] MEDS: INSULIN ASPART SUPPLEMENTAL SCALE SQ SCH ×3 (08:00→16:45)
--- NOTE | 2017-06-28 08:29 | PD.CARD.PN ---
Subjective Subjective Remarks off O2, alert in nad Objective Medications Current Medications Medications (Trade) Dose Ordered Sig/Vladimir Route Start Time Stop Time Status Last Admin (NS Flush) 2 ml UNSCH PRN IV FLUSH 06/19/17 12:30 (NS Flush) 2 ml BID IV FLUSH 06/19/17 21:00 06/27/17 21:00 (Tylenol) 650 mg Q4H PRN PO 06/19/17 13:00 (Zofran Odt) 4 mg Q6H PRN PO 06/19/17 12:30 (Narcan Inj) 0.4 mg UNSCH PRN IV PUSH 06/19/17 12:30 (Roxanna-Colace) 1 tab BID PO 06/19/17 21:00 06/27/17 21:19 (Milk Of Magnesia Liq) 30 ml Q12H PRN PO 06/19/17 13:00 (Senokot) 17.2 mg Q12H PRN PO 06/19/17 13:00 (Dulcolax Supp) 10 mg DAILY PRN RECTAL 06/19/17 13:00 (Lactulose Liq) 30 ml DAILY PRN PO 06/19/17 13:00 (Aspirin Chew) 81 mg DAILY CHEW 06/19/17 13:00 06/27/17 09:03 (Lopressor) 12.5 mg BID PO 06/19/17 12:30 06/27/17 21:19 (Aldactone) 12.5 mg DAILY PO 06/19/17 13:00 06/27/17 09:03 (Pravachol) 40 mg DAILY PO 06/20/17 09:00 06/27/17 09:03 (Pill Splitter) 1 ea UNSCH PRN OTHER 06/19/17 13:15 (D50w (Vial) Inj) 50 ml UNSCH PRN IV PUSH 06/19/17 13:30 (Glucagon Inj) 1 mg UNSCH PRN OTHER 06/19/17 13:30 (NovoLOG SUPPLEMENTAL SCALE) 1 ACHS SLIDING SCALE SQ 06/19/17 17:00 06/27/17 21:00 (Albuterol Neb) 1.25 mg Q6HR NEB PRN NEB 06/20/17 16:15 06/26/17 11:35 (Eliquis) 5 mg BID PO 06/27/17 21:00 06/27/17 21:19 (Melatonin) 5 mg HS PRN PO 06/27/17 20:15 06/27/17 21:18 Vital Signs / I&O Vital Signs Date Time Temp Pulse Resp B/P (MAP) Pulse Ox O2 Delivery O2 Flow Rate FiO2 06/28/17 04:00 97.4 60 18 134/98 (110) 97 06/28/17 03:42 87 06/28/17 00:00 Nasal Cannula 2.00 06/27/17 23:44 85 06/27/17 20:00 Nasal Cannula 2.00 06/27/17 20:00 98.0 78 18 123/70 (87) 95 06/27/17 19:44 97 06/27/17 16:29 98.4 79 20 163/93 (116) 97 06/27/17 16:00 114 06/27/17 12:30 98.3 94 20 125/82 (96) 97 06/27/17 12:00 86 06/27/17 11:57 Nasal Cannula 2.00 I/O 06/27/17 06/27/17 06/27/17 06/28/17 06/28/17 06/28/17 07:00 15:00 23:00 07:00 15:00 23:00 Intake Total 420 ml 840 ml 240 ml Balance 420 ml 840 ml 240 ml Intake Oral 420 ml 840 ml 240 ml # Voids 4 4 4 # Bowel Movements 1 1 Physical Exam GENERAL: SKIN: Warm and dry. HEAD: Normocephalic. EYES: No scleral icterus. No injection or drainage. NECK: Supple, trachea midline. No JVD or lymphadenopathy. CARDIOVASCULAR: Regular rate and rhythm without murmurs, gallops, or rubs. RESPIRATORY: Breath sounds equal bilaterally. No accessory muscle use. GASTROINTESTINAL: Abdomen soft, non-tender, nondistended. MUSCULOSKELETAL: No cyanosis, or edema. BACK: Nontender without obvious deformity. No CVA tenderness. Laboratory Laboratory Tests Test 06/28/17 06:24 Blood Gas Puncture Site RT BRACHIAL Blood Gas Patient Temperature 98.6 Blood Gas HCO3 22 mmol/L Blood Gas Base Excess -0.8 mmol/L Blood Gas Oxygen Saturation 96 % Arterial Blood pH 7.49 Arterial Blood Partial Pressure CO2 29 mmHg Arterial Blood Partial Pressure O2 101 mmHg Arterial Blood Oxygen Content 20.1 Vol % Arterial Blood Carboxyhemoglobin 1.3 % Arterial Blood Methemoglobin 0.8 % Blood Gas Hemoglobin 14.8 G/DL Oxygen Delivery Device NASAL CANNULA Blood Gas Liter Flow 2 L/M Assessment and Plan Problem List: (1) Cardiomyopathy ICD Codes: I42.9 - Cardiomyopathy, unspecified (2) CHF (congestive heart failure) ICD Codes: I50.9 - Heart failure, unspecified (3) Hypoxia ICD Codes: R09.02 - Hypoxemia (4) Dyspnea ICD Codes: R06.00 - Dyspnea, unspecified (5) HTN (hypertension) ICD Codes: I10 - Essential (primary) hypertension (6) Weakness ICD Codes: R53.1 - Weakness (7) Fatigue ICD Codes: R53.83 - Other fatigue (8) Atrial fibrillation ICD Codes: I48.91 - Unspecified atrial fibrillation (9) COPD (chronic obstructive pulmonary disease) ICD Codes: J44.9 - Chronic obstructive pulmonary disease, unspecified (10) Acute kidney injury ICD Codes: N17.9 - Acute kidney failure, unspecified Assessment and Plan 1.) Cardiomyopathy - bnp wnl, hypoxia and dyspnea appear disproportionate to degree of chf suggesting pulmonary etiology to his hypoxia and dyspnea, cta showing cpod and infiltrate, continue metoprolol, losartan, lasix, f/u bnp; v/ q scan negative, 2.) Ventricular ectopy - cath canceled due to arf, chest ct suggesting pulmonary etiology to dyspnea and improvement with bronchodilators; f/u EP consult for further assessment; Dr Black evaluated 06/27/17 3.) ARF - consult renal, cancel cath grant if creatinine not at baseline 4.) d/w daughter, Cheri, 06/23/17, 06/26/17, she is trying to send last cath report; 5.) Atrial fib - continue eliquis and metoprolol, may consider change to cardizem if Dr Shine thinks metoprolol significantly excacerbating copd 6.) copd - Dr Shine following, f/u pfts Max Garcia MD June 28, 2017 08:29
[2017-06-28] MEDS: ASPIRIN 81 MG CHEW TAB CHEW SCH (08:48)
[2017-06-28] MEDS: SPIRONOLACTONE 25 MG TAB PO SCH (08:48)
[2017-06-28] MEDS: DOCUSATE SODIUM 50 MG/SENNA 8.6 MG TAB PO SCH (08:48)
[2017-06-28] MEDS: PRAVASTATIN SOD 40 MG TAB PO SCH (08:49)
[2017-06-28] MEDS: METOPROLOL TARTRATE 25 MG TAB PO SCH (08:49)
[2017-06-28] MEDS: APIXABAN 5 MG TABLET PO SCH (08:49)
[2017-06-28] MEDS: SODIUM CHLORIDE 0.9% FLUSH 10 ML FLUSH IV FLUSH SCH (08:50)
[2017-06-28 08:56] VITALS: O2SAT 95
[2017-06-28 12:00] VITALS: BP 118/66; PULSE 78; PULSE 83; RESP 20; TEMP 97.9; O2SAT 94
[2017-06-28 14:15] LABS: AUTOMATED NEUTROPHIL # 4.2 TH/MM3 (1.8-7.7); BASOPHIL # 0.1 TH/MM3 (0-0.2); BASOPHIL % 0.9 % (0.0-2.0); EOSINOPHIL # 0.2 TH/MM3 (0-0.4); EOSINOPHIL % 3.6 % (0.0-4.0); HEMATOCRIT 44.8 % (39.0-51.0); HEMOGLOBIN 15.1 GM/DL (13.0-17.0); LYMPH % 18.3 % (9.0-44.0); LYMPHOCYTE # 1.1 TH/MM3 (1.0-4.8); MEAN CELL VOLUME 94.3 FL (80.0-100.0); MEAN CORPUSCULAR HEMOGLOBIN 31.7 PG (27.0-34.0); MEAN CORPUSCULAR HGB CONC 33.6 % (32.0-36.0); MEAN PLATELET VOLUME 8.2 FL (7.0-11.0); MONO % 7.6 % (0.0-8.0); MONOCYTE # 0.5 TH/MM3 (0-0.9); NEUT % 69.6 % (16.0-70.0); PLATELET COUNT 233 TH/MM3 (150-450); RED BLOOD COUNT 4.76 MIL/MM3 (4.50-5.90); RED CELL DISTRIBUTION WIDTH 14.4 % (11.6-17.2)
--- NOTE | 2017-06-28 14:30 | HHI.PR ---
Subjective Remarks 06-24 Nursing denies any deterioration since last night. Patient himself says he still feels short of breath intermittently while resting and truly thinks the DuoNeb treatments help. Patient is seen working with occupational therapy today, I noted that his saturations improved to 96 and 98% on room air while ambulating. 06-25 CATH WAS HELD BY CARDIOLOGY LABS PENDING MYRON RN AND PT AND CM SATING IN THE 90S ON ROOM AIR CURRENTLY DW OCCUPATIONAL THERAPY 06-26 slow improvement in KIDNEY FUNCTIONS DW RN AND PT AND CM AM LABS TRY TO WEAN OFF OXYGEN RENAL FUNCTIONS IMPROVED CATH PENDING??EPS STUDY INPT/ VS OUTPT 06-27 SEEN BY NEUROLOGY- THEY FEEL HE HAS KALYAN AND NEEDS CPAP OR BIPAP AT HOME AND NEEDS SLEEP STUDY SEEN BY CARDIOLOGY AND EP NEEDS ANTICOAGULATION MYRON RN AND PT AND CM AND FAMILY- DAUGHTER EXTENSIVELY ON 06-26 AND 06-27 GREATER THAN 30 MIN ON 06-26 AND OVER 20 MIN ON 06-27 DC TO HOME TODAY LONG DW DAUGHTER EXTENSIVELY AGAIN TODAY FOR 25 MINUTES HHC AT DC WANTS TO GO HOME NEEDS TO FOLLOW UP WITH CARDIO AND PULMONARY Objective Vitals Vital Signs Date Time Temp Pulse Resp B/P (MAP) Pulse Ox O2 Delivery O2 Flow Rate FiO2 06/28/17 12:00 78 06/28/17 09:33 Room Air 06/28/17 08:56 95 21 06/28/17 08:00 103 06/28/17 04:00 97.4 60 18 134/98 (110) 97 06/28/17 03:42 87 06/28/17 00:00 Nasal Cannula 2.00 06/27/17 23:44 85 06/27/17 20:00 Nasal Cannula 2.00 06/27/17 20:00 98.0 78 18 123/70 (87) 95 06/27/17 19:44 97 06/27/17 16:29 98.4 79 20 163/93 (116) 97 06/27/17 16:00 114 I/O 06/27/17 06/27/17 06/27/17 06/28/17 06/28/17 06/28/17 07:00 15:00 23:00 07:00 15:00 23:00 Intake Total 420 ml 840 ml 240 ml Balance 420 ml 840 ml 240 ml Intake Oral 420 ml 840 ml 240 ml # Voids 4 4 4 # Bowel Movements 1 1 Result Diagram: 06/28/17 1350 06/27/17 0425 Other Results Laboratory Tests Test 06/26/17 03:52 06/27/17 04:25 06/28/17 06:24 06/28/17 13:50 White Blood Count 9.8 TH/MM3 7.0 TH/MM3 6.0 TH/MM3 Red Blood Count 4.82 MIL/MM3 4.68 MIL/MM3 4.76 MIL/MM3 Hemoglobin 15.3 GM/DL 15.0 GM/DL 15.1 GM/DL Hematocrit 45.6 % 43.4 % 44.8 % Mean Corpuscular Volume 94.6 FL 92.9 FL 94.3 FL Mean Corpuscular Hemoglobin 31.7 PG 32.0 PG 31.7 PG Mean Corpuscular Hemoglobin Concent 33.5 % 34.4 % 33.6 % Red Cell Distribution Width 14.1 % 13.7 % 14.4 % Platelet Count 211 TH/MM3 217 TH/MM3 233 TH/MM3 Mean Platelet Volume 8.2 FL 8.3 FL 8.2 FL Neutrophils (%) (Auto) 69.6 % 64.0 % 69.6 % Lymphocytes (%) (Auto) 18.0 % 23.6 % 18.3 % Monocytes (%) (Auto) 8.6 % 7.5 % 7.6 % Eosinophils (%) (Auto) 3.1 % 4.2 % 3.6 % Basophils (%) (Auto) 0.7 % 0.7 % 0.9 % Neutrophils # (Auto) 6.8 TH/MM3 4.5 TH/MM3 4.2 TH/MM3 Lymphocytes # (Auto) 1.8 TH/MM3 1.7 TH/MM3 1.1 TH/MM3 Monocytes # (Auto) 0.8 TH/MM3 0.5 TH/MM3 0.5 TH/MM3 Eosinophils # (Auto) 0.3 TH/MM3 0.3 TH/MM3 0.2 TH/MM3 Basophils # (Auto) 0.1 TH/MM3 0.1 TH/MM3 0.1 TH/MM3 CBC Comment DIFF FINAL DIFF FINAL DIFF FINAL Differential Comment Blood Urea Nitrogen 48 MG/DL 42 MG/DL Creatinine 1.46 MG/DL 1.34 MG/DL Random Glucose 98 MG/DL 149 MG/DL Total Protein 6.7 GM/DL 6.5 GM/DL Albumin 3.3 GM/DL 3.1 GM/DL Calcium Level 8.6 MG/DL 8.4 MG/DL Phosphorus Level 3.5 MG/DL 3.3 MG/DL Magnesium Level 2.4 MG/DL 2.4 MG/DL Alkaline Phosphatase 101 U/L 100 U/L Aspartate Amino Transf (AST/SGOT) 14 U/L 17 U/L Alanine Aminotransferase (ALT/SGPT) 32 U/L 32 U/L Total Bilirubin 0.5 MG/DL 0.4 MG/DL Sodium Level 140 MEQ/L 142 MEQ/L Potassium Level 3.6 MEQ/L 3.8 MEQ/L Chloride Level 105 MEQ/L 107 MEQ/L Carbon Dioxide Level 22.9 MEQ/L 24.3 MEQ/L Anion Gap 12 MEQ/L 11 MEQ/L Estimat Glomerular Filtration Rate 46 ML/MIN 51 ML/MIN Blood Gas Puncture Site RT BRACHIAL Blood Gas Patient Temperature 98.6 Blood Gas HCO3 22 mmol/L Blood Gas Base Excess -0.8 mmol/L Blood Gas Oxygen Saturation 96 % Arterial Blood pH 7.49 Arterial Blood Partial Pressure CO2 29 mmHg Arterial Blood Partial Pressure O2 101 mmHg Arterial Blood Oxygen Content 20.1 Vol % Arterial Blood Carboxyhemoglobin 1.3 % Arterial Blood Methemoglobin 0.8 % Blood Gas Hemoglobin 14.8 G/DL Oxygen Delivery Device NASAL CANNULA Blood Gas Liter Flow 2 L/M Imaging Last Impressions Head CT 06/26/17 0000 Signed Impressions: Service Date/Time: June 19:11 - CONCLUSION: 1. No acute abnormality seen. 2. Old lacunar infarcts. 3. Cerebral atrophy. John Rowell MD Renal Ultrasound 06/23/17 0000 Signed Impressions: Service Date/Time: Friday, June 23, 2017 11:10 - CONCLUSION: 1.1 cm polypoid mass base of the bladder. Multiple renal cysts without hydronephrosis. Cortex reasonably well-preserved. Dayron Bui MD FACR Chest CT 06/21/17 0000 Signed Impressions: Service Date/Time: Wednesday, June 21, 2017 19:39 - CONCLUSION: 1. Central lobar emphysema characteristic for COPD. 2. Nonspecific interstitial infiltrate involving the posterior right lower lung. This can be an acute or chronic basis. There no prior studies comparison. 3. 1.5 cm right adrenal mass most likely an adrenal adenoma. 4. Hepatic and right sided renal cysts. Leonides Platt MD Chest X-Ray 06/19/17 0805 Signed Impressions: Service Date/Time: June 08:51 - CONCLUSION: 1. Minimal basal atelectasis or scarring. No active disease. Mildly tortuous aorta. Alexys Aleman MD Lung Scan-V Nuclear Medicine 06/19/17 0000 Signed Impressions: Service Date/Time: Tuesday, June 20, 2017 09:35 - CONCLUSION: 1. Low probability for pulmonary embolus. Alexys Aleman MD Objective Remarks GENERAL: Awake and alert and oriented talkative and cooperative somewhat hard of hearing SKIN: Warm and dry. HEAD: Atraumatic. Normocephalic. EYES: Pupils equal and round. No scleral icterus. No injection or drainage. Extraocular muscles intact ENT: No nasal bleeding or discharge. Mucous membranes pink and moist. Tongue is midline NECK: Trachea midline. No JVD. Supple CARDIOVASCULAR: Regular rate and rhythm. S1-S2 no S3 or S4 RESPIRATORY: No accessory muscle use. Clear to auscultation. Breath sounds equal bilaterally. Decreased breath sounds bilaterally GASTROINTESTINAL: Abdomen soft, non-tender, nondistended. Hepatic and splenic margins not palpable. MUSCULOSKELETAL: Extremities without clubbing, cyanosis, or edema. No obvious deformities. NEUROLOGICAL: Awake and alert. No obvious cranial nerve deficits. Motor grossly within normal limits. 4 out of 5 muscle strength in the arms and legs. Normal speech. PSYCHIATRIC: Appropriate mood and affect; insight and judgment normal. Procedures NONE Medications and IVs Current Medications Sodium Chloride (NS Flush) 2 ml UNSCH PRN IVF FLUSH AFTER USING IV ACCESS; Start 06/19/17 at 08:15; Stop 06/20/17 at 16:15; Status DC Sodium Chloride (NS Flush) 2 ml UNSCH PRN IV FLUSH FLUSH AFTER USING IV ACCESS ; Start 06/19/17 at 12:30 Sodium Chloride (NS Flush) 2 ml BID IV FLUSH Last administered on 06/28/17at 08: 50; Start 06/19/17 at 21:00 Acetaminophen (Tylenol) 650 mg Q4H PRN PO TEMP > 100.4; Start 06/19/17 at 13:00 Ondansetron HCl (Zofran Odt) 4 mg Q6H PRN PO NAUSEA OR VOMITING; Start at 12:30 Temazepam (Restoril) 15 mg HS PRN PO INSOMNIA Last administered on 06/25/17at 22 :18; Start 06/19/17 at 13:00; Stop 06/26/17 at 15:55; Status DC Enoxaparin Sodium (Lovenox Inj) 30 mg Q24H SQ Last administered on 06/27/17at 15 :15; Start 06/19/17 at 14:00; Stop 06/27/17 at 15:29; Status DC Naloxone HCl (Narcan Inj) 0.4 mg UNSCH PRN IV PUSH SEE LABEL COMMENTS; Start at 12:30 Senna/Docusate Sodium (Roxanna-Colace) 1 tab BID PO Last administered on at 08:48; Start 06/19/17 at 21:00 Magnesium Hydroxide (Milk Of Magnesia Liq) 30 ml Q12H PRN PO Mild constipation ; Start 06/19/17 at 13:00 Sennosides (Senokot) 17.2 mg Q12H PRN PO Moderate constipation; Start 06/19/17 at 13:00 Bisacodyl (Dulcolax Supp) 10 mg DAILY PRN RECTAL SEVERE CONSITIPATION; Start at 13:00 Lactulose (Lactulose Liq) 30 ml DAILY PRN PO SEVERE CONSITIPATION; Start at 13:00 Aspirin (Aspirin Chew) 81 mg DAILY CHEW Last administered on 06/28/17at 08:48; Start 06/19/17 at 13:00 Metformin HCl (Glucophage) 500 mg BIDPC PO Last administered on 06/21/17at 17:59 ; Start 06/19/17 at 18:00; Stop 06/21/17 at 20:54; Status DC Metoprolol Tartrate (Lopressor) 12.5 mg BID PO Last administered on 06/28/17at 08:49; Start 06/19/17 at 12:30 Spironolactone (Aldactone) 12.5 mg DAILY PO Last administered on 06/28/17at 08: 48; Start 06/19/17 at 13:00 Losartan Potassium (Cozaar) 25 mg BID PO Last administered on 06/22/17at 08:15; Start 06/19/17 at 12:30; Stop 06/22/17 at 09:27; Status DC Pravastatin Sodium (Pravachol) 40 mg DAILY PO Last administered on 06/28/17at 08 :49; Start 06/20/17 at 09:00 Miscellaneous (Pill Splitter) 1 ea UNSCH PRN OTHER SEE LABEL COMMENTS; Start at 13:15 Dextrose (D50w (Vial) Inj) 50 ml UNSCH PRN IV PUSH HYPOGLYCEMIA-SEE COMMENTS; Start 06/19/17 at 13:30 Glucagon (Glucagon Inj) 1 mg UNSCH PRN OTHER HYPOGLYCEMIA-SEE COMMENTS; Start 06/19/17 at 13:30 Insulin Aspart (NovoLOG SUPPLEMENTAL SCALE) 1 ACHS SLIDING SCALE SQ Last administered on 06/28/17at 12:00; Start 06/19/17 at 17:00 Furosemide (Lasix Inj) 20 mg BID@09,18 IV PUSH Last administered on 06/22/17at 08:16; Start 06/19/17 at 14:00; Stop 06/22/17 at 09:27; Status DC Enalaprilat (Vasotec Inj) 1.25 mg Q6H PRN IV PUSH SBP>!60; Start 06/19/17 at 13 :30; Stop 06/22/17 at 09:27; Status DC Albuterol Sulfate (Albuterol Neb) 1.25 mg Q6HR NEB PRN NEB wheezing Last administered on 06/26/17at 11:35; Start 06/20/17 at 16:15 Iohexol (Omnipaque 350 Inj) 70 ml STK-MED ONCE IVCONTRAST Last administered on 06/21/17at 19:46; Start 06/21/17 at 19:46; Stop 06/21/17 at 19:47; Status DC Miscellaneous Information ([facility]) HOLD METFORMIN FOR... Q24H .XX ; Start 06/21/17 at 19:45; Stop 06/23/17 at 19:45; Status DC Metformin HCl (Glucophage) 500 mg BIDPC PO ; Start 06/24/17 at 09:00; Stop 06/24 at 09:00; Status DC Sodium Chloride 250 ml @ 250 mls/hr BOLUS ONCE IV Last administered on at 10:05; Start 06/22/17 at 09:30; Stop 06/22/17 at 10:29; Status DC Zolpidem Tartrate (Ambien) 5 mg ONCE ONCE PO Last administered on 06/26/17at 21 :31; Start 06/26/17 at 21:30; Stop 06/26/17 at 21:31; Status DC Apixaban (Eliquis) 5 mg BID PO Last administered on 06/28/17at 08:49; Start at 21:00 Melatonin (Melatonin) 5 mg HS PRN PO sleep Last administered on 06/27/17at 21:18 ; Start 06/27/17 at 20:15 A/P Assessment and Plan This is an 82-year-old male with history of cardiomyopathy, COPD, sleep apnea, diabetes mellitus, hypertension presenting with shortness of breath intermittent SOB - now likely 2/2 tachyarrhythmia given VQ low to indeterminate probability w/ sats now normalized, clinically improved today, ambulating without difficulty SEEN BY PULMONARY DC TO HOME FOLLOW UP WITH DR LEVY Tachyarrhythmia -PVCs with possible PACs -Cardiology is awaiting electrophysiology evaluation and outside cath report before proceeding with further workup Acute kidney injury -Likely may have been secondary to diuresis since BMP results came before contrast dye was infused; nephrology following -We will hold IV diuretics, holding ARB and Aldactone -I personally confirmed with lab as well as with CT, that the patient demonstrated worsening renal function before contrast was infused on 06/21 signifying more nephrotoxicity from IV diuresis as opposed to contrast-induced nephropathy, related to cardiology RENAL FOLLOWING CR IS 1.34 IMPROVING FOLLOW UP NEPHROLOGY Mild chronic systolic chronic heart failure -Continue home metoprolol aspirin, hold Aldactone in light of SYEDA ECHO shows EF 45-55%. Hypertension, uncontrolled- on metoprolol, holding ARB given SYEDA Diabetes mellitus- holding metformin given SYEDA, on sliding scale insulin. AM LABS Labs today are pending IS A DNR- WILL MAKE DNR HERE CONSULT PULM FOR KALYAN SEEN BY EP NEEDS ANTICOAGULATION SEEN BY NEUROLOGY RECOMMENDS SLEEP STUDY AND PULM FOR CPAP/BIPAP WILL START ELIQUIS 5MG PO BID Discharge Planning Continue physical therapy and Occupational Therapy [facility]HC [facility] [place] [facility] AT [facility] NEEDS C Dayron Arguelles DO June 28, 2017 14:30
--- NOTE | 2017-06-28 14:32 | HHI.FF ---
Face to Face Verification Diagnosis: (1) Fatigue (2) Dyspnea (3) CHF (congestive heart failure) (4) Weakness (5) Hypoxia (6) Cardiomyopathy (7) HTN (hypertension) (8) Acute kidney injury (9) COPD (chronic obstructive pulmonary disease) (10) Atrial fibrillation Physical Therapy Order: Evaluate and Treat, Improve ambulation, Strength and gait training Occupational Therapy Order: Evaluate and Treat, Improve ADL, Gross motor coordination, Fine motor coordination Home Health Nursing Order: Medical education Signs/symptoms of disease process Nursing assessment with vital signs Home Health Aide Order: To Assist In: Bathing and 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 My clinical findings support the need for the requested home health care services because: Patient has SOB Deconditioned w/ increased weakness Med compliance is questionable Limited ability to care for self I certify that my clinical findings support that this patient is homebound because: Impaired cognitive ability/safety Hx COPD- exertion dyspnea/weakness Dayron Arguelles DO June 28, 2017 14:32
[2017-06-28] MEDS ORDERED: SPIR25TA PO (14:37)
[2017-06-28] MEDS ORDERED: APIX5TAB PO (14:37)
[2017-06-28] MEDS ORDERED: PERI PO (14:37)
[2017-06-28] MEDS ORDERED: MELA5 PO (14:37)
[2017-06-28] MEDS ORDERED: ALBU1.25 NEB (14:37)
[2017-06-28] MEDS ORDERED: NEBULIZER1 MI1 (14:41)
--- NOTE | 2017-06-28 14:44 | HHI.DS ---
Discharge Summary Admission Date June 19, 2017 at 12:19 Discharge Date: June 28, 2017 Admitting Diagnosis Dyspnea, Intermittent Vent Tachy (1) Fatigue ICD Code: R53.83 - Other fatigue Diagnosis: Principal (2) Dyspnea ICD Code: R06.00 - Dyspnea, unspecified Diagnosis: Secondary (3) CHF (congestive heart failure) ICD Code: I50.9 - Heart failure, unspecified Diagnosis: Secondary (4) Weakness ICD Code: R53.1 - Weakness Diagnosis: Secondary (5) Hypoxia ICD Code: R09.02 - Hypoxemia Diagnosis: Secondary (6) Cardiomyopathy ICD Code: I42.9 - Cardiomyopathy, unspecified Diagnosis: Secondary (7) HTN (hypertension) ICD Code: I10 - Essential (primary) hypertension Diagnosis: Secondary (8) Acute kidney injury ICD Code: N17.9 - Acute kidney failure, unspecified Diagnosis: Secondary (9) COPD (chronic obstructive pulmonary disease) ICD Code: J44.9 - Chronic obstructive pulmonary disease, unspecified Diagnosis: Principal (10) Atrial fibrillation ICD Code: I48.91 - Unspecified atrial fibrillation Diagnosis: Principal (11) KALYAN (obstructive sleep apnea) ICD Code: G47.33 - Obstructive sleep apnea (adult) (pediatric) Diagnosis: Principal Procedures NONE Brief History - From Admission This is an 82/M with h/o cardiomyopathy, COPD, DM, HTN, ? Cardiomyopathy and sleep apnea presenting with acute SOB. Per patient, he has not been feeling well since March and has been noticing lack of energy and chronic shortness of breath. He just moved from [place] over the winter to [place] and subsequently moved to [facility] last week. While he was in [place], he had multiple doctor visits done including with a solar manager who never came into a diagnostic conclusion but he was told that he has cardiomyopathy, COPD and sleep apnea. He has poor compliance with his CPAP. He has been chronically short of breath however last night, he was more short of breath than usual. There was no note of chest pain, dizziness, lightheadedness, fever, chills or sick contacts. He has a chronic cough which has not changed productive with white sputum. There is no bilateral lower extremity edema. He got better last night but this morning when he woke up, he became more short of breath again hence he decided to go to the hospital. There was still no note of chest pain or any other symptoms. While at the emergency department around 8 AM, patient was found to have nonsustained ventricular tachycardia on telemetry, patient was asymptomatic. CBC/BMP: 06/28/17 1350 06/27/17 0425 Significant Findings Laboratory Tests Test 06/26/17 03:52 06/27/17 04:25 06/28/17 06:24 06/28/17 13:50 Monocytes (%) (Auto) 8.6 % (0.0-8.0) Blood Urea Nitrogen 48 MG/DL (7-18) 42 MG/DL (7-18) Creatinine 1.46 MG/DL (0.60-1.30) 1.34 MG/DL (0.60-1.30) Albumin 3.3 GM/DL (3.4-5.0) 3.1 GM/DL (3.4-5.0) Aspartate Amino Transf (AST/SGOT) 14 U/L (15-37) Estimat Glomerular Filtration Rate 46 ML/MIN (>89) 51 ML/MIN (>89) Eosinophils (%) (Auto) 4.2 % (0.0-4.0) Random Glucose 149 MG/DL (74-106) Calcium Level 8.4 MG/DL (8.5-10.1) Arterial Blood pH 7.49 (7.380-7.420) Arterial Blood Partial Pressure CO2 29 mmHg (38-42) Arterial Blood Oxygen Content 20.1 Vol % (12.0-20.0) Imaging Last Impressions Head CT 06/26/17 0000 Signed Impressions: Service Date/Time: June 19:11 - CONCLUSION: 1. No acute abnormality seen. 2. Old lacunar infarcts. 3. Cerebral atrophy. John Rowell MD Renal Ultrasound 06/23/17 0000 Signed Impressions: Service Date/Time: Friday, June 23, 2017 11:10 - CONCLUSION: 1.1 cm polypoid mass base of the bladder. Multiple renal cysts without hydronephrosis. Cortex reasonably well-preserved. Dayron Bui MD FACR Chest CT 06/21/17 0000 Signed Impressions: Service Date/Time: Wednesday, June 21, 2017 19:39 - CONCLUSION: 1. Central lobar emphysema characteristic for COPD. 2. Nonspecific interstitial infiltrate involving the posterior right lower lung. This can be an acute or chronic basis. There no prior studies comparison. 3. 1.5 cm right adrenal mass most likely an adrenal adenoma. 4. Hepatic and right sided renal cysts. Leonides Platt MD Chest X-Ray 06/19/17 0805 Signed Impressions: Service Date/Time: June 08:51 - CONCLUSION: 1. Minimal basal atelectasis or scarring. No active disease. Mildly tortuous aorta. Alexys Aleman MD Lung Scan-V Nuclear Medicine 06/19/17 0000 Signed Impressions: Service Date/Time: Tuesday, June 20, 2017 09:35 - CONCLUSION: 1. Low probability for pulmonary embolus. Alexys Aleman MD PE at Discharge GENERAL: Awake and alert and oriented talkative and cooperative somewhat hard of hearing SKIN: Warm and dry. HEAD: Atraumatic. Normocephalic. EYES: Pupils equal and round. No scleral icterus. No injection or drainage. Extraocular muscles intact ENT: No nasal bleeding or discharge. Mucous membranes pink and moist. Tongue is midline NECK: Trachea midline. No JVD. Supple CARDIOVASCULAR: Regular rate and rhythm. S1-S2 no S3 or S4 RESPIRATORY: No accessory muscle use. Clear to auscultation. Breath sounds equal bilaterally. Decreased breath sounds bilaterally GASTROINTESTINAL: Abdomen soft, non-tender, nondistended. Hepatic and splenic margins not palpable. MUSCULOSKELETAL: Extremities without clubbing, cyanosis, or edema. No obvious deformities. NEUROLOGICAL: Awake and alert. No obvious cranial nerve deficits. Motor grossly within normal limits. 4 out of 5 muscle strength in the arms and legs. Normal speech. PSYCHIATRIC: Appropriate mood and affect; insight and judgment normal. Hospital Course 5-15 Nursing denies any deterioration since last night. Patient himself says he still feels short of breath intermittently while resting and truly thinks the DuoNeb treatments help. Patient is seen working with occupational therapy today, I noted that his saturations improved to 96 and 98% on room air while ambulating. 5-16 CATH WAS HELD BY CARDIOLOGY LABS PENDING MYRON MEYER AND PT AND CM SATING IN THE 90S ON ROOM AIR CURRENTLY DW OCCUPATIONAL THERAPY 06-26 slow improvement in KIDNEY FUNCTIONS DW RN AND PT AND CM AM LABS TRY TO WEAN OFF OXYGEN RENAL FUNCTIONS IMPROVED CATH PENDING??EPS STUDY INPT/ VS OUTPT 06-27 SEEN BY NEUROLOGY- THEY FEEL HE HAS KALYAN AND NEEDS CPAP OR BIPAP AT HOME AND NEEDS SLEEP STUDY SEEN BY CARDIOLOGY AND EP NEEDS ANTICOAGULATION DW RN AND PT AND CM AND FAMILY- DAUGHTER EXTENSIVELY ON 06-26 AND 06-27 GREATER THAN 30 MIN ON 06-26 AND OVER 20 MIN ON 06-27 DC TO HOME TODAY LONG DW DAUGHTER EXTENSIVELY AGAIN TODAY FOR 25 MINUTES HHC AT DC WANTS TO GO HOME NEEDS TO FOLLOW UP WITH CARDIO AND PULMONARY AND NEPHROLOGY Pt Condition on Discharge: Good Discharge Disposition: Disch w/ Home Health Serv Discharge Time: > 30 minutes Discharge Instructions DIET: Follow Instructions for: Heart Healthy Diet, Diabetic Diet Speech Therapy-Diet Recommends: Regular Activities you can perform: Regular-No Restrictions, Weight Bearing as So Follow up Referrals: Cardiology - 3-5 Days with Max Garcia MD Nephrology - 1 Week with Nevin Olson MD PCP Follow-up - 2-3 Days Pulmonology - 2-3 Days with Rl Shine MD New Medications: Nebulizer (Nebulizer) 1 Mis Mis EA .XX DIRECTED for Breathing Treatment, #1 0 Refills Albuterol Neb (Albuterol Neb) 1.25 Mg/3 Ml Neb 1.25 MG NEB Q6HR NEB PRN for SOB/WHEEZING, #180 NEBULE Apixaban (Eliquis) 5 Mg Tab 5 MG PO BID for Blood Clot Prevention, #60 TAB Melatonin (Melatonin) 5 Mg Tab 10 MG PO HS PRN for sleep, #60 TAB Pravastatin (Pravachol) 40 Mg Tab 40 MG PO DAILY for Cholesterol Management, #30 TAB Sennosides-Docusate Sodium (Gnp Senna Plus 8.6-50 mg) 8.6 Mg-50 Mg Tab 1 TAB PO BID for Bowel Management, #60 TAB Continued Medications: Aspirin (Aspirin) 81 Mg Chew 81 MG CHEW DAILY, TAB 0 Refills Metformin (Metformin) 500 Mg Tab 500 MG PO BIDPC for Blood Sugar Management, #60 TAB 0 Refills Metoprolol Tartrate (Metoprolol Tartrate) 25 Mg Tab 12.5 MG PO BID, #60 TAB 0 Refills Spironolactone (Spironolactone) 25 Mg Tab 12.5 MG PO DAILY for Blood Pressure Management, #30 TAB 0 Refills (This prescription has been renewed) Discontinued Medications: Olmesartan (Benicar) 5 Mg Tab 5 MG PO BID for Blood Pressure Management, #30 TAB 0 Refills Simvastatin (Simvastatin) 20 Mg Tab 20 MG PO DAILY for Cholesterol Management, #30 TAB 0 Refills Dayron Arguelles DO June 28, 2017 14:44
[2017-06-28 14:47] LABS: ALBUMIN 3.3 GM/DL (3.4-5.0); ALKALINE PHOSPHATASE 106 U/L (45-117); ALT (GPT) 42 U/L (12-78); AST (GOT) 25 U/L (15-37); BICARBONATE 25.9 MEQ/L (21.0-32.0); BLOOD UREA NITROGEN 31 MG/DL (7-18); CALCIUM 8.6 MG/DL (8.5-10.1); CHLORIDE 105 MEQ/L (98-107); CREATININE 1.49 MG/DL (0.60-1.30); GLOMERULAR FILTRATION RATE 45 ML/MIN (>89); GLUCOSE,RANDOM 242 MG/DL (74-106); MAGNESIUM 2.4 MG/DL (1.5-2.5); PHOSPHORUS 3.1 MG/DL (2.5-4.9); SODIUM (NA) 139 MEQ/L (136-145); TOTAL BILIRUBIN ADULT 0.3 MG/DL (0.2-1.0); TOTAL PROTEIN 6.9 GM/DL (6.4-8.2)
== END 2017-06-28 17:24 | disposition home or self-care (01) | DRG 291 ==
LOC: NEPC 07:28 → NEDA 11:31 → OBSVTOIN 12:19 → N04A 15:19
PROVIDERS: ADMIT Hospitalist; ATTEND Hospitalist
DX: I11.0 Hypertensive heart disease with heart failure (principal); I50.20 Unspecified systolic (congestive) heart failure; J96.01 Acute respiratory failure with hypoxia; N17.9 Acute kidney failure, unspecified; T50.8X5A Adverse effect of diagnostic agents, initial encounter; E11.65 Type 2 diabetes mellitus with hyperglycemia; Z79.84 Long term (current) use of oral hypoglycemic drugs; I48.91 Unspecified atrial fibrillation; I42.9 Cardiomyopathy, unspecified; J44.9 Chronic obstructive pulmonary disease, unspecified; R53.1 Weakness; G47.33 Obstructive sleep apnea (adult) (pediatric); N40.0 Benign prostatic hyperplasia without lower urinary tract symptoms; Z79.82 Long term (current) use of aspirin; R74.8 Abnormal levels of other serum enzymes; H35.30 Unspecified macular degeneration; Z66 Do not resuscitate; H91.90 Unspecified hearing loss, unspecified ear; Z87.891 Personal history of nicotine dependence
CPT/HCPCS: 36600; 70450; 71045; 71260; 76775; 78582; 80048; 80053; 81001; 82550; 82565; 82570; 82607; 82805; 82948; 83036; 83735; 83880; 83935; 84100; 84145; 84300; 84439; 84443; 84484; 85025; 85027; 85379; 85610; 85730; 86308; 93005; 93306; 94150; 94618; 94640; 94664; 99285; A9540; A9567; J1650; J1815; J1940; J7050; J7613; Q9967

== ENCOUNTER 2017-07-16 10:09 | Inpatient (IN) | payer MEDICARE, OTHER ==
[~2017-07-16] VITALS: Ht 175.3 cm; Wt 91.1 kg
[2017-07-16] VITALS (11 sets, daily range): BP systolic 96–143; BP diastolic 61–109; PULSE 64–142; RESP 18–25; TEMP 97.5–97.9; O2SAT 93–98
[~2017-07-16 10:09] MED LIST: ALBU1.25 NEB; APIX5TAB PO; ASPI-516 CHEW; MELA5 PO; METF500T PO; METO25TA3 PO; NEBULIZER1 MI1; PERI PO; PRAV40TA PO; SPIR25TA PO
--- NOTE | 2017-07-16 10:28 | PD ---
HPI Chief Complaint: Respiratory Symptoms Time Seen by Provider: 10:24 Travel History International Travel<30 days: No Contact w/Intl Traveler<30days: No Traveled to known affect area: No History of Present Illness HPI 82-year-old male patient with multiple medical issues, COPD history, presents to the ER today because several weeks history of cough, shortness of breath, had recently been in the hospital for similar complaints but has not been able to get his nebulizer from the pharmacy because of back order, and he is also complaining of some chest discomfort which she reports is a 1 out of 10. He has been coughing up white phlegm. He denies any fevers or any other issues. Modifying Factors: None Associated Signs & Symptoms: Coughing, shortness of breath, chest discomfort Risk Factors: COPD history, cardiac history PFSH Past Medical History Arthritis: Yes (SHOULDERS) Asthma: No Heart Rhythm Problems: No Cancer: Yes (HAND AND FACE ) Cardiomyopathy: Yes Cardiovascular Problems: Yes High Cholesterol: No Chemotherapy: No Chest Pain: No Congestive Heart Failure: Yes COPD: Yes Diabetes: Yes Genitourinary: Yes Musculoskeletal: Yes Neurologic: No Psychiatric: No Reproductive: No Respiratory: Yes Radiation Therapy: No Sleep Apnea: Yes Past Surgical History Abdominal Surgery: No Cardiac Surgery: No Ear Surgery: No Endocrine Surgery: No Eye Surgery: Yes (MUCASEAL IN LEFT EYE ) Genitourinary Surgery: No Gynecologic Surgery: No Oral Surgery: No Thoracic Surgery: No Other Surgery: Yes (L EYE SX ) Social History Alcohol Use: Yes Tobacco Use: No Substance Use: No Allergies-Medications (Allergen,Severity, Reaction): Coded Allergies: lisinopril (Verified Allergy, Intermediate, Cough, 06/19/17) pioglitazone (Verified Allergy, Intermediate, Cough, 06/19/17) bee venom protein (honey bee) (Verified Allergy, Unknown, 06/19/17) Uncoded Allergies: ANT BITES (Adverse Reaction, Intermediate, 06/19/17) Reported Meds & Prescriptions Reported Meds & Active Scripts Active Nebulizer 1 Mis Mis Ea .XX DIRECTED Melatonin 5 Mg Tab 10 Mg PO HS PRN Gnp Senna Plus 8.6-50 mg (Sennosides-Docusate Sodium) 8.6 Mg-50 Mg Tab 1 Tab PO BID Eliquis (Apixaban) 5 Mg Tab 5 Mg PO BID Albuterol Neb (Albuterol Sulfate) 1.25 Mg/3 Ml Neb 1.25 Mg NEB Q6HR NEB PRN Spironolactone 25 Mg Tab 12.5 Mg PO DAILY Pravachol (Pravastatin) 40 Mg Tab 40 Mg PO DAILY Reported Metoprolol Tartrate 25 Mg Tab 12.5 Mg PO BID Metformin (Metformin HCl) 500 Mg Tab 500 Mg PO BIDPC Aspirin 81 Mg Chew 81 Mg CHEW DAILY Review of Systems Except as stated in HPI: all other systems reviewed are Neg Physical Exam Narrative GENERAL: Well-developed elderly white male patient currently in mild distress. Awake and oriented 3. SKIN: Focused skin assessment warm/dry. HEAD: Atraumatic. Normocephalic. EYES: Pupils equal and round. No scleral icterus. No injection or drainage. ENT: No nasal bleeding or discharge. Mucous membranes pink and moist. NECK: Trachea midline. No JVD. CARDIOVASCULAR: Regular rate and rhythm. No murmur appreciated. RESPIRATORY: Mild accessory muscle use. Mild wheezing bilaterally. Breath sounds equal bilaterally. GASTROINTESTINAL: Abdomen soft, non-tender, nondistended. Hepatic and splenic margins not palpable. MUSCULOSKELETAL: No obvious deformities. No clubbing. No cyanosis. No edema. NEUROLOGICAL: Awake and alert. No obvious cranial nerve deficits. Motor grossly within normal limits. Normal speech. PSYCHIATRIC: Appropriate mood and affect; insight and judgment normal. Data Data Last Documented VS Vital Signs Date Time Temp Pulse Resp B/P (MAP) Pulse Ox O2 Delivery O2 Flow Rate FiO2 07/16/17 14:38 97.9 112 19 96/75 (82) 96 Room Air Orders Orders Complete Blood Count With Diff (07/16/17 10:24) Comprehensive Metabolic Panel (07/16/17 10:24) B-Type Natriuretic Peptide (07/16/17 10:24) Troponin I (07/16/17 10:24) Iv Access Insert/Monitor (07/16/17 10:24) Electrocardiogram (07/16/17 10:24) Ecg Monitoring (07/16/17 10:24) Oximetry (07/16/17 10:24) Oxygen Administration (07/16/17 10:24) Chest, Single Ap (07/16/17 10:24) Sodium Chloride 0.9% Flush (Ns Flush) (07/16/17 10:30) Albuterol-Ipratropium Neb (Duoneb Neb) (07/16/17 10:30) Furosemide Inj (Lasix Inj) (07/16/17 11:45) Methylprednisolone So Succ Inj (Solumedr (07/16/17 13:45) Albuterol-Ipratropium Neb (Duoneb Neb) (07/16/17 13:45) Labs Laboratory Tests Test 07/16/17 10:30 White Blood Count 7.4 TH/MM3 Red Blood Count 4.64 MIL/MM3 Hemoglobin 14.9 GM/DL Hematocrit 44.0 % Mean Corpuscular Volume 94.9 FL Mean Corpuscular Hemoglobin 32.2 PG Mean Corpuscular Hemoglobin Concent 33.9 % Red Cell Distribution Width 13.9 % Platelet Count 259 TH/MM3 Mean Platelet Volume 7.4 FL Neutrophils (%) (Auto) 61.2 % Lymphocytes (%) (Auto) 24.6 % Monocytes (%) (Auto) 8.6 % Eosinophils (%) (Auto) 4.9 % Basophils (%) (Auto) 0.7 % Neutrophils # (Auto) 4.5 TH/MM3 Lymphocytes # (Auto) 1.8 TH/MM3 Monocytes # (Auto) 0.6 TH/MM3 Eosinophils # (Auto) 0.4 TH/MM3 Basophils # (Auto) 0.0 TH/MM3 CBC Comment DIFF FINAL Differential Comment Blood Urea Nitrogen 15 MG/DL Creatinine 1.39 MG/DL Random Glucose 171 MG/DL Total Protein 7.7 GM/DL Albumin 3.9 GM/DL Calcium Level 9.4 MG/DL Alkaline Phosphatase 96 U/L Aspartate Amino Transf (AST/SGOT) 15 U/L Alanine Aminotransferase (ALT/SGPT) 25 U/L Total Bilirubin 0.5 MG/DL Sodium Level 138 MEQ/L Potassium Level 4.8 MEQ/L Chloride Level 103 MEQ/L Carbon Dioxide Level 26.4 MEQ/L Anion Gap 9 MEQ/L Estimat Glomerular Filtration Rate 49 ML/MIN Troponin I 0.02 NG/ML B-Type Natriuretic Peptide 177 PG/ML MDM Medical Decision Making Medical Screen Exam Complete: Yes Emergency Medical Condition: Yes Interpretation(s) EKG shows A. fib with a right bundle branch block pattern at a rate of 86 bpm. Laboratory Tests Test 07/16/17 10:30 Monocytes (%) (Auto) 8.6 % (0.0-8.0) Eosinophils (%) (Auto) 4.9 % (0.0-4.0) Creatinine 1.39 MG/DL (0.60-1.30) Random Glucose 171 MG/DL (74-106) Estimat Glomerular Filtration Rate 49 ML/MIN (>89) B-Type Natriuretic Peptide 177 PG/ML (0-100) Last 24 hours Impressions Chest X-Ray 07/16/17 1024 Signed Impressions: CONCLUSION: Cardiomegaly with pulmonary vascular engorgement and mild interstitial edema . Differential Diagnosis COPD exacerbation versus bronchitis versus pneumonia versus CHF Narrative Course Patient was initially treated with nebulizers in the ER. Chest x-ray shows signs of pulmonary edema and Lasix was also given. BNP was not significantly elevated. Patient was reevaluated several times and on reevaluation at 2:30 PM , he was ambulated, and became tachycardic and quite winded with ambulation, and at this point, plan would be to admit the patient for further treatment. Case is discussed with Dr. Sampson for admission. Diagnosis Primary Impression: COPD (chronic obstructive pulmonary disease) Admitting Information Admitting Physician Requests: Admit Henry Gaston MD Jul 16, 2017 10:28
[2017-07-16] MEDS ORDERED: RESP: ALBUTEROL 2.5 MG/IPRATROPIUM 0.5 MG NEB (SCH) INH ONE (10:30)
[2017-07-16 10:55] LABS: AUTOMATED NEUTROPHIL # 4.5 TH/MM3 (1.8-7.7); BASOPHIL % 0.7 % (0.0-2.0); EOSINOPHIL # 0.4 TH/MM3 (0-0.4); EOSINOPHIL % 4.9 % (0.0-4.0); HEMOGLOBIN 14.9 GM/DL (13.0-17.0); LYMPH % 24.6 % (9.0-44.0); LYMPHOCYTE # 1.8 TH/MM3 (1.0-4.8); MEAN CELL VOLUME 94.9 FL (80.0-100.0); MEAN CORPUSCULAR HEMOGLOBIN 32.2 PG (27.0-34.0); MEAN CORPUSCULAR HGB CONC 33.9 % (32.0-36.0); MEAN PLATELET VOLUME 7.4 FL (7.0-11.0); MONO % 8.6 % (0.0-8.0); MONOCYTE # 0.6 TH/MM3 (0-0.9); NEUT % 61.2 % (16.0-70.0); PLATELET COUNT 259 TH/MM3 (150-450); RED BLOOD COUNT 4.64 MIL/MM3 (4.50-5.90); RED CELL DISTRIBUTION WIDTH 13.9 % (11.6-17.2); WHITE BLOOD COUNT 7.4 TH/MM3 (4.0-11.0)
--- NOTE | 2017-07-16 11:20 | RADRPT ---
EXAM DATE: 07/16/2017 11:03 AM EDT AGE/SEX: 82 years / Male INDICATIONS: Short of breath. CLINICAL DATA: This is the patient's initial encounter. Patient reports that signs and symptoms have been present for 1 day and indicates a pain score of 0/10. MEDICAL/SURGICAL HISTORY: None. None. COMPARISON: [facility] [place], CHEST SINGLE AP, 06/19/2017. . FINDINGS: 2 portable frontal views of the chest show cardiomegaly. Mild pulmonary vascular engorgement. Basilar interstitial prominence bilaterally. No effusions. Bony structures are unremarkable. CONCLUSION: Cardiomegaly with pulmonary vascular engorgement and mild interstitial edema. Electronically signed by: Adeel Ruiz MD 07/16/2017 11:18 AM EDT
[2017-07-16 11:28] LABS: ALBUMIN 3.9 GM/DL (3.4-5.0); AST (GOT) 15 U/L (15-37); BICARBONATE 26.4 MEQ/L (21.0-32.0); BLOOD UREA NITROGEN 15 MG/DL (7-18); CALCIUM 9.4 MG/DL (8.5-10.1); CHLORIDE 103 MEQ/L (98-107); CREATININE 1.39 MG/DL (0.60-1.30); GLOMERULAR FILTRATION RATE 49 ML/MIN (>89); GLUCOSE,RANDOM 171 MG/DL (74-106); SODIUM (NA) 138 MEQ/L (136-145)
[2017-07-16 11:30] LABS: ALT (GPT) 25 U/L (12-78)
[2017-07-16 11:33] LABS: ALKALINE PHOSPHATASE 96 U/L (45-117); TOTAL BILIRUBIN ADULT 0.5 MG/DL (0.2-1.0); TOTAL PROTEIN 7.7 GM/DL (6.4-8.2); TROPONIN I 0.02 NG/ML (0.02-0.05)
[2017-07-16] MEDS ORDERED: FUROSEMIDE 20 MG/2 ML VIAL IV PUSH ONE (11:45)
[2017-07-16] MEDS: SODIUM CHLORIDE 0.9% FLUSH 10 ML FLUSH IVF PRN ×2 (12:57→14:36)
[2017-07-16] MEDS: RESP: ALBUTEROL 2.5 MG/IPRATROPIUM 0.5 MG NEB (SCH) INH (13:41)
[2017-07-16] MEDS ORDERED: methylPREDNISolone SOD SUCC 125 MG/2 ML VIAL IV PUSH ONE (13:45)
--- NOTE | 2017-07-16 15:52 | HHI.HP ---
[facility] Unknown Admission Diagnosis COPD exacerbation/mild pulmonary edema Diagnoses: Chief Complaint: I could not sleep because of cough and short of breath Travel History International Travel<30 Days: No Contact w/Intl Traveler <30 Da: No Traveled to Known Affected Are: No History of Present Illness 82 years old male who was recently hospitalized for shortness of breath COPD and CHF patient follow up with Dr. Mccord email marketer who sent him today to the hospital due to worsening dyspnea on exertion and PND, patient stated he was not able to sleep yesterday gasping for air shortness of breath started 3 months ago, yesterday he had severe cough with thick whitish phlegm no fever or chills, he does have leg swelling +3 edema he admitted eating salty food. No significant chest pain abdominal pain diarrhea constipation patient quit smoking 30 years ago, last admission also he had acute kidney injury now his creatinine is 1 1.39 his baseline used to be below 1 I reviewed most of the records from the last hospitalization. Review of Systems All systems reviewed and was positive for what is mentioned in history of present illness otherwise negative Past Family Social History Past Medical History Arthritis shoulder Hypertension Diabetes mellitus Macular degeneration Prostate enlargement History of face and hand cancer possibly skin CHF Past Surgical History As above Allergies: Coded Allergies: lisinopril (Verified Allergy, Intermediate, Cough, 06/19/17) pioglitazone (Verified Allergy, Intermediate, Cough, 06/19/17) bee venom protein (honey bee) (Verified Allergy, Unknown, 06/19/17) Uncoded Allergies: ANT BITES (Adverse Reaction, Intermediate, 06/19/17) Family History Diabetes mellitus and his mother and brother Social History Quit smoking 30 years ago He drinks wine and beer almost 5 days a week No illicit drug Physical Exam Vital Signs Vital Signs Date Time Temp Pulse Resp B/P (MAP) Pulse Ox O2 Delivery O2 Flow Rate FiO2 07/16/17 14:38 97.9 112 19 96/75 (82) 96 Room Air 07/16/17 13:34 122 20 142/76 (98) 95 Room Air 07/16/17 12:30 102 25 138/76 (96) Room Air 07/16/17 11:30 90 24 124/91 (102) 96 Room Air 07/16/17 10:31 96 Aerosol Mask 07/16/17 10:28 Room Air 07/16/17 10:25 82 18 129/109 (116) 94 Room Air 07/16/17 10:12 97.5 95 20 143/87 (105) 93 Physical Exam GENERAL: This is a well-nourished, well-developed patient, in no apparent distress. SKIN: No rashes, warm and dry HEAD: Atraumatic. Normocephalic. EYES: Pupils equal round and reactive. Extraocular motions intact. No scleral icterus. ENT: Nose without bleeding, or drainage, Airway patent. NECK: Trachea midline. Supple CARDIOVASCULAR: Irregularly irregular RESPIRATORY: Few rales bibasilar with minimal wheezing GASTROINTESTINAL: Abdomen soft, non-tender, nondistended. Positive bowel sounds MUSCULOSKELETAL: Extremities without clubbing, cyanosis, +2-3 edema. Pedal pulses appreciated NEUROLOGICAL: Awake and alert. Moves all extremity. Normal speech.no focal neurological deficit Laboratory Laboratory Tests Test 07/16/17 10:30 White Blood Count 7.4 Red Blood Count 4.64 Hemoglobin 14.9 Hematocrit 44.0 Mean Corpuscular Volume 94.9 Mean Corpuscular Hemoglobin 32.2 Mean Corpuscular Hemoglobin Concent 33.9 Red Cell Distribution Width 13.9 Platelet Count 259 Mean Platelet Volume 7.4 Neutrophils (%) (Auto) 61.2 Lymphocytes (%) (Auto) 24.6 Monocytes (%) (Auto) 8.6 Eosinophils (%) (Auto) 4.9 Basophils (%) (Auto) 0.7 Neutrophils # (Auto) 4.5 Lymphocytes # (Auto) 1.8 Monocytes # (Auto) 0.6 Eosinophils # (Auto) 0.4 Basophils # (Auto) 0.0 CBC Comment DIFF FINAL Differential Comment Blood Urea Nitrogen 15 Creatinine 1.39 Random Glucose 171 Total Protein 7.7 Albumin 3.9 Calcium Level 9.4 Alkaline Phosphatase 96 Aspartate Amino Transf (AST/SGOT) 15 Alanine Aminotransferase (ALT/SGPT) 25 Total Bilirubin 0.5 Sodium Level 138 Potassium Level 4.8 Chloride Level 103 Carbon Dioxide Level 26.4 Anion Gap 9 Estimat Glomerular Filtration Rate 49 Troponin I 0.02 B-Type Natriuretic Peptide 177 Result Diagram: 07/16/17 1030 07/16/17 1030 Imaging Last Impressions Chest X-Ray 07/16/17 1024 Signed Impressions: CONCLUSION: Cardiomegaly with pulmonary vascular engorgement and mild interstitial edema . Caprini VTE Risk Assessment Caprini VTE Risk Assessment: Mod/High Risk (score >= 2) Caprini Risk Assessment Model Point Value = 1 Point Value = 2 Point Value = 3 Point Value = 5 Age 41-60 Minor surgery BMI > 25 kg/m2 Swollen legs Varicose veins or History of unexplained or recurrent spontaneous Oral contraceptives or hormone replacement Sepsis (< 1 month) Serious lung disease, including pneumonia (< 1 month) Abnormal pulmonary function Acute myocardial infarction Congestive heart failure (< 1 month) History of inflammatory bowel disease Medical patient at bed rest Age 61-74 Arthroscopic surgery Major open surgery (> 45 min) Laparoscopic surgery (> 45 min) Malignancy Confined to bed (> 72 hours) Immobilizing plaster cast Central venous access Age >= 75 History of VTE Family history of VTE Factor V Leiden Prothrombin [id number] Lupus anticoagulant Anticardiolipin antibodies Elevated serum homocysteine Heparin-induced thrombocytopenia Other congenital or acquired thrombophilia Stroke (< 1 month) Elective arthroplasty Hip, pelvis, or leg fracture Acute spinal cord injury (< 1 month) Prophylaxis Regimen Total Risk Factor Score Risk Level Prophylaxis Regimen 0-1 Low Early ambulation 2 Moderate Order ONE of the following: *Sequential Compression Device (SCD) *Heparin 5000 units SQ BID 3-4 Higher Order ONE of the following medications: *Heparin 5000 units SQ TID *Enoxaparin/Lovenox 40 mg SQ daily (WT < 150 kg, CrCl > 30 mL/min) *Enoxaparin/Lovenox 30 mg SQ daily (WT < 150 kg, CrCl > 10-29 mL/min) *Enoxaparin/Lovenox 30 mg SQ BID (WT < 150 kg, CrCl > 30 mL/min) AND/OR *Sequential Compression Device (SCD) 5 or more Highest Order ONE of the following medications: *Heparin 5000 units SQ TID (Preferred with Epidurals) *Enoxaparin/Lovenox 40 mg SQ daily (WT < 150 kg, CrCl > 30 mL/min) *Enoxaparin/Lovenox 30 mg SQ daily (WT < 150 kg, CrCl > 10-29 mL/min) *Enoxaparin/Lovenox 30 mg SQ BID (WT < 150 kg, CrCl > 30 mL/min) AND *Sequential Compression Device (SCD) Assessment and Plan Assessment and Plan 82 years old with history of hypertension CHF diabetes mellitus recent SYEDA and COPD presented with Worsening dyspnea and PND leg swelling Elevated BNP 177, baseline below 100 EKG reviewed A. 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 fib Continue Lopressor and Eliquis Diabetes mellitus Hold metformin especially with SYEDA, continue Accu-Chek and insulin sliding scale History of macular degeneration and prostate enlargement Follow-up as an outpatient DVT prophylaxis> on Eliquis Discussed Condition With Patient in ED physician Carmen Braden MD Jul 16, 2017 15:52
[2017-07-16] MEDS ORDERED: GLUCAGON 1 MG/ML VIAL OTHER PRN (16:00)
[2017-07-16] MEDS ORDERED: DEXTROSE 50% IN WATER 50 ML VIAL(D50) IV PUSH PRN (16:00)
--- NOTE | 2017-07-16 18:17 | EKG ---
Date Performed: 07/16/2017 Time Performed: 10:26:17 PTAGE: 82 years EKG: ATRIAL FIBRILLATION WITH ABERRANT CONDUCTION BEATS INDETERMINATE AXIS DEVIATION RIGHT BUNDL E BRANCH BLOCK ABNORMAL ECG PREVIOUS TRACING : 06/19/2017 17.55 Compared to previous tracing, SR no longer present. DOCTOR: Renae Coley Interpretating Date/Time 07/16/2017 18:16:42
[2017-07-16] MEDS: INSULIN ASPART SUPPLEMENTAL SCALE SQ SCH ×2 (18:55→22:33)
[2017-07-16] MEDS: FUROSEMIDE 40 MG/4 ML VIAL IVP SCH (18:56)
[2017-07-16] MEDS: MELATONIN 5 MG TAB PO PRN (20:43)
[2017-07-16] MEDS: APIXABAN 5 MG TABLET PO SCH (20:43)
[2017-07-16] MEDS: METOPROLOL TARTRATE 25 MG TAB PO SCH (20:43)
[2017-07-16] MEDS ORDERED: METOPROLOL TARTRATE 25 MG TAB PO ONE (21:45)
[2017-07-16] MEDS: RESP: IPRATROPIUM 0.5 MG/2.5 ML NEB NEB SCH (22:00)
[2017-07-16] MEDS ORDERED: MELA1TAB18 PO (23:08)
[2017-07-17] VITALS (12 sets, daily range): BP systolic 106–180; BP diastolic 61–138; PULSE 67–138; RESP 15–20; TEMP 97.6–98.8; O2SAT 91–98
[2017-07-17] MEDS ORDERED: diphenhydrAMINE HCL 25 MG CAP PO ONE (01:00)
[2017-07-17] MEDS ORDERED: BENZONATATE 100 MG CAP PO ONE (01:00)
[2017-07-17] MEDS: RESP: IPRATROPIUM 0.5 MG/2.5 ML NEB NEB SCH ×4 (03:05→19:19)
[2017-07-17 04:42] LABS: ALBUMIN 3.2 GM/DL (3.4-5.0); ALKALINE PHOSPHATASE 81 U/L (45-117); ALT (GPT) 22 U/L (12-78); AST (GOT) 10 U/L (15-37); BICARBONATE 23.4 MEQ/L (21.0-32.0); BLOOD UREA NITROGEN 26 MG/DL (7-18); CALCIUM 8.9 MG/DL (8.5-10.1); CHLORIDE 104 MEQ/L (98-107); CREATININE 1.51 MG/DL (0.60-1.30); GLOMERULAR FILTRATION RATE 44 ML/MIN (>89); GLUCOSE,RANDOM 235 MG/DL (74-106); SODIUM (NA) 138 MEQ/L (136-145); TOTAL BILIRUBIN ADULT 0.4 MG/DL (0.2-1.0); TOTAL PROTEIN 6.7 GM/DL (6.4-8.2); TROPONIN I LESS THAN 0.02 NG/ML (0.02-0.05)
[2017-07-17] MEDS: INSULIN ASPART SUPPLEMENTAL SCALE SQ SCH ×4 (08:00→22:11)
[2017-07-17] MEDS: ASPIRIN 81 MG CHEW TAB CHEW SCH (08:25)
[2017-07-17] MEDS: METOPROLOL TARTRATE 25 MG TAB PO SCH ×2 (08:25→22:11)
[2017-07-17] MEDS: APIXABAN 5 MG TABLET PO SCH ×2 (08:26→22:11)
[2017-07-17] MEDS: SPIRONOLACTONE 25 MG TAB PO SCH (08:26)
[2017-07-17] MEDS: PRAVASTATIN SOD 40 MG TAB PO SCH (08:26)
[2017-07-17] MEDS: FUROSEMIDE 40 MG/4 ML VIAL IVP SCH ×2 (08:27→16:56)
--- NOTE | 2017-07-17 15:31 | EKG ---
Date Performed: 07/16/2017 Time Performed: 21:40:19 PTAGE: 82 years EKG: ATRIAL FIBRILLATION WITH RAPID VENTRICULAR RESPONSE WITH ABERRANT CONDUCTION OR VENTRICULAR PREMATURE COMPLEXES MARKED RIGHT AXIS DEVIATION RIGHT BUNDLE BRANCH BLOCK ABNORMAL ECG Since the PREVIOUS TRACING , no significant change noted PREVIOUS TRACIN07/16/2017 @ 22.26 DOCTOR: Renae Coley Interpretating Date/Time 07/17/2017 15:29:50
--- NOTE | 2017-07-17 15:42 | HHI.PR ---
Subjective Remarks Follow-up dyspnea. The patient just had an episode of shortness of breath, which is now better after receiving a breathing treatment. He denies chest pain currently, but is getting some soreness in the center of his chest with coughing. Objective Vitals Vital Signs Date Time Temp Pulse Resp B/P (MAP) Pulse Ox O2 Delivery O2 Flow Rate FiO2 07/17/17 12:10 97.9 86 20 115/74 (88) 92 07/17/17 08:37 98 21 07/17/17 07:17 97.6 115 18 106/75 (85) 93 07/17/17 04:39 120/68 (85) Automatic Cuff 07/17/17 04:29 97.8 138 16 180/138 (152) 91 07/17/17 03:40 107 07/17/17 00:15 96 07/17/17 00:13 98.8 108 15 137/61 (86) 96 07/16/17 23:08 107 07/16/17 21:50 127 07/16/17 20:39 142 07/16/17 20:37 97.5 129 18 117/83 (94) 93 07/16/17 16:57 97.6 64 18 107/61 (76) 94 07/16/17 15:50 98 I/O 07/16/17 07/16/17 07/16/17 07/17/17 07/17/17 07/17/17 07:00 15:00 23:00 07:00 15:00 23:00 Intake Total 570 ml 236 ml Output Total 400 ml 250 ml 250 ml Balance -400 ml 320 ml -14 ml Intake Oral 570 ml IV Total 236 ml Output Urine Total 400 ml 250 ml 250 ml # Voids 2 3 3 Result Diagram: 07/16/17 1030 07/17/17 0345 Imaging Last Impressions Chest X-Ray 07/16/17 1024 Signed Impressions: CONCLUSION: Cardiomegaly with pulmonary vascular engorgement and mild interstitial edema . Objective Remarks General: No acute distress. Heart: Regular rate and rhythm. No murmur. Lungs: Mild scattered wheeze. No crackles noted. Breathing is nonlabored. Abdomen: Soft, nontender, nondistended. Extremities: 1+ bilateral lower extremity edema. Psych: Alert and oriented. Neuro: Normal speech. No focal deficits noted. Procedures None Urinary Catheter: No Vascular Central Line Catheter: No A/P Assessment and Plan 1. Dyspnea: Possible CHF, COPD. Echocardiogram ordered. Continue diuresis, fluid restriction. Monitor strict intake/output. Edema has improved. Consult patient's bisque finisher. Consult pulmonology. 2. Acute kidney injury: Creatinine increasing secondary to diuresis. Consult nephrology. Decrease Lasix. 3. Hypertension: Continue furosemide, metoprolol, spironolactone. 4. Atrial fibrillation: Continue metoprolol, Eliquis. 5. Diabetes mellitus: Metformin on hold secondary to acute kidney injury. Monitor Accu-Cheks and cover with sliding scale insulin. 6. DVT prophylaxis: Eliquis. Kolton Pike MD Jul 17, 2017 15:42
--- NOTE | 2017-07-17 16:41 | ECHRPT ---
Indication: CONCLUSIONS The left ventricle is not well visualized. Mildly dilated left ventricle. Mild concentric left ventricular hypertrophy. The left ventricular systolic function is [id number] reduced with an estimated ejection fra ction in the range of 35-40%. There is global left ventricular dysfunction. The left atrial size is mildly dilated. The right atrial size is mildly dilated. The interatrial septum not well visualized. Mild thickening of the mitral valve leaflets. Mild mitral valve regurgitation. No aortic valve stenosis. Trace aortic valve regurgitation. Aortic valve sclerosis is present. There is mild tricuspid valve regurgitation. The estimated pulmonary arterial pressure is 39.2 mmHg. BP: 115 / 74 HR: Rhythm: MEASUREMENTS (Male / Female) Normal Values Technical Quality: 2D ECHO LV Diastolic Diameter PLAX 5.5 cm 4.2 - 5.9 / 3.9 - 5.3 cm LV Systolic Diameter PLAX 3.9 cm IVS Diastolic Thickness 1.0 cm 0.6 - 1.0 / 0.6 - 0.9 cm LVPW Diastolic Thickness 1.0 cm 0.6 - 1.0 / 0.6 - 0.9 cm LV Relative Wall Thickness 0.4 RV Internal Dim ED PLAX 3.1 cm LVOT Diameter 2.3 cm Aortic Root Diameter 3.1 cm LA Systolic Diameter LX 4.9 cm 3.0 - 4.0 / 2.7 - 3.8 cm M-MODE AV Cusp Separation MM 1.7 cm DOPPLER AV Peak Velocity 113.6 cm/s AV Peak Gradient 5.2 mmHg AV Mean Gradient 3.0 mmHg AV Velocity Time Integral 16.3 cm LVOT Peak Velocity 34.6 cm/s LVOT Peak Gradient 0.5 mmHg LVOT Velocity Time Integral 5.2 cm AV Area Cont Eq vti 1.3 cm AV Area Cont Eq pk 1.3 cm Mitral E Point Velocity 94.5 cm/s LV E' Lateral Velocity 9.8 cm/s Mitral E to LV E' Lateral Ratio 9.7 LV E' Septal Velocity 4.4 cm/s Mitral E to LV E' Septal Ratio 21.4 TR Peak Velocity 270.0 cm/s TR Peak Gradient 29.2 mmHg Right Atrial Pressure 10.0 mmHg Pulmonary Artery Systolic Pressu 39.2 mmHg Right Ventricular Systolic Press 39.2 mmHg PV Peak Velocity 36.9 cm/s PV Peak Gradient 0.5 mmHg FINDINGS LEFT VENTRICLE The left ventricle is not well visualized. Mildly dilated left ventricle. Mild concentric left ventricular hypertrophy. The left ventricular systolic function is [id number] reduced with an estimated ejection fra ction in the range of 35-40%. There is global left ventricular dysfunction. RIGHT VENTRICLE Normal right ventricular size and systolic function. LEFT ATRIUM The left atrial size is mildly dilated. RIGHT ATRIUM The right atrial size is mildly dilated. ATRIAL SEPTUM The interatrial septum not well visualized. Normal atrial septal thickness without atrial level shunting by limited color doppler interrogation. AORTA The aortic root and proximal ascending aorta are normal in size on limited imaging. MITRAL VALVE Mild thickening of the mitral valve leaflets. Mild mitral valve regurgitation. AORTIC VALVE No aortic valve stenosis. Trace aortic valve regurgitation. Aortic valve sclerosis is present. TRICUSPID VALVE Structurally normal tricuspid valve. There is mild tricuspid valve regurgitation. The estimated pulmonary arterial pressure is 39.2 mmHg. PULMONARY VALVE No pulmonary valve regurgitation or stenosis. VESSELS The inferior vena cava is normal in size. PERICARDIUM No pericardial effusion. Good Blanchard MD, FACC (Electronically Signed) Final Date:17 July 2017 16:40
[2017-07-17] MEDS ORDERED: PILL SPLITTER OTHER PRN (18:00)
--- NOTE | 2017-07-17 18:20 | MB ---
cc: Lane Crawford MD, Glenn H MD DATE: 07/17/2017 REASON FOR CONSULTATION: Shortness of breath, congestive heart failure, atrial fibrillation. HISTORY OF PRESENT ILLNESS: The patient is an 82-year-old white male, followed in our office by Dr. Roger Mccord, with a history of paroxysmal atrial fibrillation diagnosed last month, history of nonischemic cardiomyopathy, mild coronary artery disease, COPD, CVA, diabetes, sleep apnea, chronic renal insufficiency who presented to the hospital with increased shortness of breath, nonproductive cough. In addition, he was in Dr. Mccord's office yesterday at which point EKG showed atrial fibrillation with a rapid ventricular response, so he was recommended hospitalization. The patient denies palpitations, dizziness, syncope or near syncope. Occasionally, he experiences paroxysmal nocturnal dyspnea. In the last few weeks, he has had pedal edema, which has considerably improved with diuretic therapy. He reports compliance with his medications and a no added salt diet. In the last 6-8 weeks, he has noted increased wheezing with minimal relief from inhalers. He denies fevers, hemoptysis, pleurisy. Today, he experienced a mild left-sided chest soreness which lasted most of the day. He denies any other chest pains. PAST MEDICAL HISTORY: 1. Paroxysmal atrial fibrillation. 2. Nonischemic cardiomyopathy dating back to 2005, at which time his ejection fraction was 35%. On an echo 06/29/2017, his ejection fraction was reportedly 45-55%. Echocardiogram today reports ejection fraction of 35-40% with mild left ventricular enlargement. 3. Coronary artery disease with his last heart catheterization 04/05/2015 showing normal left main, minimal LAD and diagonal disease, 20% proximal left circumflex stenosis, normal right coronary, left dominant system. 4. Chronic obstructive pulmonary disease. 5. CVA (old lacunar by CT). 6. Diabetes. 7. Hyperlipidemia. 8. Hypertension. 9. Sleep apnea. 10. Chronic renal insufficiency. CARDIAC MEDICATIONS AT HOME: 1. Eliquis 5 mg b.i.d. 2. Spironolactone 12.5 mg daily. 3. Pravastatin 40 mg at bedtime. 4. Metoprolol tartrate 12.5 mg b.i.d. 5. Aspirin 81 mg daily. ALLERGIES: LISINOPRIL, PIOGLITAZONE FAMILY HISTORY: Noncontributory. SOCIAL HISTORY: The patient is a former smoker. There is no history of alcohol abuse. REVIEW OF SYSTEMS: As in the history of present illness, otherwise negative or noncontributory. He denies headache, abdominal pain, melena, dyspepsia, bright red blood per rectum. PHYSICAL EXAMINATION: VITAL SIGNS: Blood pressure 129/64 with a pulse of 81, respirations 18. GENERAL: He is a well-developed, well-nourished white male, in no acute distress. HEENT: Jugular venous pressure is normal. Carotid pulses are 2+ bilaterally and without bruits. CHEST: Reveals diffuse mild to moderate expiratory wheezes with diminished breath sounds at the bases. CARDIAC: He has an irregular irregular rhythm without S3 or murmur. ABDOMEN: He has a soft, nontender abdomen. Bowel sounds are present. There is no definite hepatosplenomegaly. EXTREMITIES: Reveals no clubbing or cyanosis. There is trace pretibial edema bilaterally. CARDIOLOGY STUDIES: EKG from 07/16/2017 shows atrial fibrillation, right bundle branch block, poor R-wave progression, left anterior fascicular block. IMAGING STUDIES: Chest x-ray shows mild pulmonary vascular engorgement with increased interstitial markings. There are no pleural effusions. LABORATORY DATA: WBC 7.4, hemoglobin 14.9, platelets 259. Potassium 4.6, BUN 26, creatinine 1.51, troponin less than 0.02. Brain natriuretic peptide level 177. IMPRESSION: Increased shortness of breath, atrial fibrillation with a rapid ventricular response, moderate to severe nonischemic cardiomyopathy in this 82-year-old white male with a history of paroxysmal atrial fibrillation diagnosed last month, history of mild coronary artery disease, COPD, diabetes, sleep apnea, chronic renal insufficiency. I suspect his increased dyspnea is multifactorial in origin including chronic obstructive pulmonary disease exacerbation, mild congestive heart failure exacerbation, uncontrolled atrial fibrillation. Overall, there is no evidence for acute coronary syndrome. He had minimal disease on cardiac catheterization about 2 years ago. Cardiac enzymes are negative for myocardial infarction. His echocardiogram from today has been reviewed. It is technically difficult. I suspect his ejection fraction is actually closer to 30% rather than 35-40% with global hypokinesis and mild to moderate left ventricular enlargement. At this time, his heart rates have improved. Increasing his medical regimen will be somewhat limited by his occasionally relatively low blood pressures. RECOMMENDATIONS: 1. Continue Eliquis as his thromboembolic risk is high. 2. Agree with mild intravenous furosemide diuresis. 3. Continue his home cardiac medications. 4. Consider adding Entresto. 5. Treatment of his chronic obstructive pulmonary disease. 6. Consider ablation of his atrial fibrillation in the future to help restore atrial contribution to left ventricular filling. MD JOHN Quintana/ , 05:31 PM , 06:18 PM NARDA
[2017-07-17] MEDS: RESP: ALBUTEROL 2.5 MG/IPRATROPIUM 0.5 MG NEB (SCH) NEB (19:19)
[2017-07-17] MEDS: SACUBITRIL/VALSARTAN 24 MG-26 MG TAB PO SCH (22:11)
[2017-07-17] MEDS: methylPREDNISolone SOD SUCC 40 MG/1 ML VIAL IV SCH (22:11)
[2017-07-17] MEDS: SODIUM CHLORIDE 0.9% FLUSH 10 ML FLUSH IVF PRN (22:12)
[2017-07-17] MEDS: MELATONIN 5 MG TAB PO PRN (22:12)
[2017-07-18] VITALS (8 sets, daily range): BP systolic 108–145; BP diastolic 58–88; PULSE 70–103; RESP 16–18; TEMP 97.3–98.7; O2SAT 92–95
[2017-07-18] MEDS: RESP: IPRATROPIUM 0.5 MG/2.5 ML NEB NEB SCH ×4 (04:00→19:10)
[2017-07-18] MEDS: RESP: ALBUTEROL 2.5 MG/IPRATROPIUM 0.5 MG NEB (SCH) NEB ×4 (04:00→19:11)
[2017-07-18 04:21] LABS: AUTOMATED NEUTROPHIL # 10.3 TH/MM3 (1.8-7.7); BASOPHIL % 0.2 % (0.0-2.0); EOSINOPHIL # 0.1 TH/MM3 (0-0.4); EOSINOPHIL % 0.5 % (0.0-4.0); HEMATOCRIT 45.9 % (39.0-51.0); HEMOGLOBIN 15.4 GM/DL (13.0-17.0); LYMPHOCYTE # 0.9 TH/MM3 (1.0-4.8); MEAN CORPUSCULAR HEMOGLOBIN 31.1 PG (27.0-34.0); MEAN CORPUSCULAR HGB CONC 33.5 % (32.0-36.0); MEAN PLATELET VOLUME 7.7 FL (7.0-11.0); MONO % 1.8 % (0.0-8.0); MONOCYTE # 0.2 TH/MM3 (0-0.9); NEUT % 89.5 % (16.0-70.0); PLATELET COUNT 292 TH/MM3 (150-450); RED BLOOD COUNT 4.93 MIL/MM3 (4.50-5.90); WHITE BLOOD COUNT 11.5 TH/MM3 (4.0-11.0)
[2017-07-18 04:41] LABS: BICARBONATE 25.3 MEQ/L (21.0-32.0); CALCIUM 9.1 MG/DL (8.5-10.1); CREATININE 1.63 MG/DL (0.60-1.30)
[2017-07-18] MEDS: methylPREDNISolone SOD SUCC 40 MG/1 ML VIAL IV SCH ×3 (06:11→22:43)
[2017-07-18] MEDS: SODIUM CHLORIDE 0.9% FLUSH 10 ML FLUSH IVF PRN ×2 (06:11→22:44)
--- NOTE | 2017-07-18 07:35 | MB ---
cc: Nicole Wright MD DATE: 07/17/2017 REASON FOR CONSULTATION: Chronic obstructive pulmonary disease. HISTORY OF PRESENT ILLNESS: This is an 82-year-old white male who recently was in the hospital for shortness of breath and CHF, has been on diuretics and bronchodilators and has been followed by his rig hand. The patient apparently was home, but complained of a persistent cough, increased wheezing, shortness of breath, and orthopnea as well as whitish-yellow expectoration and thus came to the emergency room. He has had some leg swelling, which got worse and he was hypoxic and thus has been placed on O2 at 2 liters nasal cannula. Chest x-ray that was done demonstrated mild basilar atelectasis and hyperinflation with pulmonary interstitial edema. The patient is presently not running any fever and denies chest pains. PAST MEDICAL HISTORY: Included hypertension, history of diabetes mellitus type 2, history of arthritis, history of prostatic hypertrophy and the previous history of skin cancer on the face and recent treatment for CHF. He has had macular degeneration. HABITS AND SOCIAL HISTORY: The patient smoked 1-1/2 pack per day for 25 years and quit. Drinks alcohol moderately. 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 ALLERGIES: INCLUDED LISINOPRIL, ACTOS AND BEE VENOM. FAMILY HISTORY: Significant for diabetes mellitus. REVIEW OF SYSTEMS: The patient is overweight. He has history for shortness of breath, wheezing, cough with expectoration. He has snoring. He has joint pains. He has trouble ambulating. Denies any headaches or blackouts. He does have urinary frequency and prostatic enlargement. No depression or anxiety. PHYSICAL EXAMINATION: GENERAL: This moderately obese, elderly man is alert, pale and mildly dyspneic at rest. VITAL SIGNS: Blood pressure 130/70, pulse is 98, respirations 20, temperature 97.5. HEENT: Head is normocephalic. Pupils are reactive and equal. Throat was injected. Nasal mucosa edematous. Ears reveal no inflammation. NECK: Supple. No bruits. There is mild venous distention at 45 degrees. Trachea midline. No lymphadenopathy. CHEST: Equal movements with an increased AP diameter with diffuse wheezes bilaterally with occasional basilar crackles. HEART: Sounds are irregular, S1 and S2 with no murmur. ABDOMEN: Soft, obese, without masses. No organomegaly. EXTREMITIES: Reveal varicosities and 1+ leg edema. Decreased peripheral pulses. NEUROLOGIC: Reflexes are 1+ with no gross motor deficits. Cranial nerves are grossly intact. SKIN: Dry with a few keratotic skin lesions of the extremities. IMPRESSION: 1. Pulmonary edema with hypoxemia. 2. Chronic obstructive pulmonary disease with acute exacerbation. 3. Hypertension. 4. Diabetes mellitus type 2. 5. History of degenerative arthritis. PLAN: The patient will be advised to wear 2 liters of oxygen to maintain saturations over 92. He will be sent for a pulmonary function study. His previous CAT scan that was done recently was reviewed and he will be given nebulized DuoNeb solution q.i.d. Zithromax 500 mg daily x 3 was added and Solu-Medrol 40 mg IV every 8 hours for 48 hours. Followup chest x-ray will be obtained for the pulmonary edema. Continue with diuretic therapy as ordered. We will try to wean him off the oxygen over the next [address] Braden for this consultation. MD YFN Bee/SHAYLEE , 07:15 AM , 07:34 AM
[2017-07-18] MEDS: APIXABAN 5 MG TABLET PO SCH ×2 (07:50→22:43)
[2017-07-18] MEDS: PRAVASTATIN SOD 40 MG TAB PO SCH (07:50)
[2017-07-18] MEDS: AZITHROMYCIN 250 MG TAB PO SCH (07:50)
[2017-07-18] MEDS: METOPROLOL TARTRATE 25 MG TAB PO SCH (07:51)
[2017-07-18] MEDS: SACUBITRIL/VALSARTAN 24 MG-26 MG TAB PO SCH ×2 (07:51→22:44)
[2017-07-18] MEDS: ASPIRIN 81 MG CHEW TAB CHEW SCH (07:51)
[2017-07-18] MEDS: SPIRONOLACTONE 25 MG TAB PO SCH ×2 (07:51)
[2017-07-18] MEDS: FUROSEMIDE 40 MG/4 ML VIAL IVP SCH (07:52)
[2017-07-18] MEDS: INSULIN ASPART SUPPLEMENTAL SCALE SQ SCH ×4 (08:00→22:52)
--- NOTE | 2017-07-18 09:10 | PD.CONS ---
[facility] Service Nephrology Consult Requested By Dr. Pike Reason for Consult Acute kidney injury Primary Care Physician Unknown History of Present Illness Patient is a 82 male with past medical history of diabetes, chronic obstructive pulmonary disease, history of cardiomyopathy, hyperlipidemia, BPH, and sleep apnea. 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 Nephrology is consulted for elevated creatinine of 1.63 today and potassium level of 4.7. Creatinine at 1.07 noted on June 19, 2017. Does not report previous history of kidney disease. Elevated in creatinine could be prerenal related to diuresis or upper respiratory infection. Denies any nausea, vomiting, diarrhea, or any changes in oral intake. Denies NSAID use. (Chantal Coppola) Review of Systems Constitutional: COMPLAINS OF: Fatigue Respiratory: COMPLAINS OF: Cough, Shortness of breath Cardiovascular: DENIES: Chest pain, Lower Extremity Edema Gastrointestinal: DENIES: Abdominal pain, Diarrhea, Nausea, Vomiting ( Chantal Coppola) Past Family Social History Allergies: Coded Allergies: lisinopril (Verified Allergy, Intermediate, Cough, 06/19/17) pioglitazone (Verified Allergy, Intermediate, Cough, 06/19/17) bee venom protein (honey bee) (Verified Allergy, Unknown, 06/19/17) Uncoded Allergies: ANT BITES (Adverse Reaction, Intermediate, 06/19/17) Past Medical History BPH Cardiomyopathy COPD Sleep apnea Macular degeneration on OU Diabetes Hypertension hyperlipidemia Past Surgical History L eye surgery prostate surgery Active Ordered Medications Current Medications Medications (Trade) Dose Ordered Sig/Vladimir Route Start Time Stop Time Status Last Admin (NS Flush) 2 ml UNSCH PRN IVF 07/16/17 10:30 07/18/17 06:11 (Eliquis) 5 mg BID PO 07/16/17 21:00 07/18/17 07:50 (Aspirin Chew) 81 mg DAILY CHEW 07/17/17 09:00 07/18/17 07:51 (Lopressor) 12.5 mg BID PO 07/16/17 21:00 07/18/17 07:51 (Pravachol) 40 mg DAILY PO 07/17/17 09:00 07/18/17 07:50 (Aldactone) 12.5 mg DAILY PO 07/17/17 09:00 07/18/17 07:51 (NovoLOG SUPPLEMENTAL SCALE) 1 ACHS SLIDING SCALE SQ 07/16/17 17:00 07/17/17 22:11 (Glucagon Inj) 1 mg UNSCH PRN OTHER 07/16/17 16:00 (D50w (Vial) Inj) 50 ml UNSCH PRN IV PUSH 07/16/17 16:00 (Melatonin) 5 mg HS PRN PO 07/16/17 21:00 07/17/17 22:12 (Atrovent Neb) 0.5 mg Q6HR NEB NEB 07/16/17 22:00 07/17/17 19:19 (Lasix Inj) 20 mg BID@,18 IVP 07/17/17 18:00 07/18/17 07:52 (Entresto 24-26 Mg) 1 tab BID PO 07/17/17 21:00 07/18/17 07:51 (Aldactone) 12.5 mg DAILY PO 07/18/17 09:00 (Pill Splitter) 1 ea UNSCH PRN OTHER 07/17/17 18:00 (Duoneb Neb) 1 ampule Q6HR NEB NEB 07/17/17 22:00 07/18/17 08:05 (SoluMEDROL INJ) 40 mg Q8HR IV 07/17/17 22:00 07/18/17 06:11 (Zithromax) 500 mg DAILY PO 07/18/17 09:00 07/18/17 07:50 Family History No history of kidney disease Both parents with diabetes Social History Quit smoking over 30 years ago Drinks alcohol daily 2-3 glasses Lives with (Chantal Coppola) Physical Exam Vital Signs Vital Signs Date Time Temp Pulse Resp B/P (MAP) Pulse Ox O2 Delivery O2 Flow Rate FiO2 07/18/17 08:06 93 21 07/18/17 07:15 98.0 70 16 138/60 (86) 95 07/18/17 04:16 98.2 87 17 108/85 (93) 93 07/18/17 04:01 103 07/17/17 23:43 98.7 99 17 115/73 (87) 97 07/17/17 20:03 67 18 131/94 (106) 93 07/17/17 19:19 95 07/17/17 16:50 98.8 81 18 129/64 (85) 94 07/17/17 12:10 97.9 86 20 115/74 (88 92 Physical Exam GENERAL: Alert and oriented SKIN: Warm and dry. HEAD: Normocephalic. EYES: No scleral icterus. No injection or drainage. NECK: Supple, trachea midline. No JVD or lymphadenopathy. CARDIOVASCULAR: Regular rate and rhythm without murmurs, gallops, or rubs. RESPIRATORY: Breath sounds equal bilaterally. No accessory muscle use. GASTROINTESTINAL: Abdomen soft, non-tender, nondistended. MUSCULOSKELETAL: No cyanosis, or edema. BACK: Nontender without obvious deformity. No CVA tenderness. Laboratory Laboratory Tests Test 07/18/17 03:03 White Blood Count 11.5 Red Blood Count 4.93 Hemoglobin 15.4 Hematocrit 45.9 Mean Corpuscular Volume 93.0 Mean Corpuscular Hemoglobin 31.1 Mean Corpuscular Hemoglobin Concent 33.5 Red Cell Distribution Width 14.0 Platelet Count 292 Mean Platelet Volume 7.7 Neutrophils (%) (Auto) 89.5 Lymphocytes (%) (Auto) 8.0 Monocytes (%) (Auto) 1.8 Eosinophils (%) (Auto) 0.5 Basophils (%) (Auto) 0.2 Neutrophils # (Auto) 10.3 Lymphocytes # (Auto) 0.9 Monocytes # (Auto) 0.2 Eosinophils # (Auto) 0.1 Basophils # (Auto) 0.0 CBC Comment DIFF FINAL Differential Comment Blood Urea Nitrogen 34 Creatinine 1.63 Random Glucose 229 Calcium Level 9.1 Sodium Level 138 Potassium Level 4.7 Chloride Level 101 Carbon Dioxide Level 25.3 Anion Gap 12 Estimat Glomerular Filtration Rate 41 (Chantal Coppola) Result Diagram: 07/18/17 0303 07/18/17 0303 Imaging Last Impressions Chest X-Ray 07/16/17 1024 Signed Impressions: CONCLUSION: Cardiomegaly with pulmonary vascular engorgement and mild interstitial edema . (Chantal Coppola) Assessment and Plan Problem List: (1) Acute kidney injury ICD Codes: N17.9 - Acute kidney failure, unspecified Plan: Acute kidney injury with a creatinine of 1.63 SYEDA could be prerenal with diuresis Plan Continue lasix at reduced dose of 20 mg BID Entresto has been started may need to hold if creatinine increases tomorrow Will obtain urinalysis, and urine studies Avoid nephrotoxins Will monitor urinary output and BMP (2) HTN (hypertension) ICD Codes: I10 - Essential (primary) hypertension Status: Chronic Plan: Well controlled will monitor (Chantal Coppola) Problem List: (1) Acute kidney injury ICD Codes: N17.9 - Acute kidney failure, unspecified Plan: Acute kidney injury with a creatinine of 1.63 SYEDA could be prerenal with diuresis Plan Continue Lasix at reduced 40 mg daily. Entresto has been started may need to hold if creatinine increases tomorrow Will obtain urinalysis, and urine studies Avoid nephrotoxins Will monitor urinary output and BMP Patient seen and examined, agree with above. Patient has chronic kidney disease and develop mild SYEDA. Has also CHF, agree with diuretics. Cardiology following. Follow the urine out put and BMP. (2) HTN (hypertension) ICD Codes: I10 - Essential (primary) hypertension Status: Chronic Plan: Well controlled will monitor (Nevin Olson MD) Problem Qualifiers (1) HTN (hypertension): Qualified Codes: I10 - Essential (primary) hypertension Chantal Coppola Jul 18, 2017 09:10 Nevin Olson MD Jul 18, 2017 15:47
--- NOTE | 2017-07-18 09:16 | HHI.FPPN ---
Subjective Remarks Patient switching service from [facility] to [facility] service. Patient states he started feeling short of breath starting in March. He states the shortness of breath "comes out of nowhere." He states shortness of breath is not related to position. He can lie flat without difficulty. He denies swelling in his legs for the most part. Today, the patient is doing well. Denies chest pain, nausea, vomiting, fever, chills. His shortness of breath has improved somewhat. No dizziness or palpitations. He did sleep well. The patient is on telemetry currently showing a rate mostly over 105, still in atrial fibrillation. (Don Page MD R3) Objective Vitals Vital Signs Date Time Temp Pulse Resp B/P (MAP) Pulse Ox O2 Delivery O2 Flow Rate FiO2 07/18/17 08:06 93 21 07/18/17 07:15 98.0 70 16 138/60 (86) 95 07/18/17 04:16 98.2 87 17 108/85 (93) 93 07/18/17 04:01 103 07/17/17 23:43 98.7 99 17 115/73 (87) 97 07/17/17 20:03 67 18 131/94 (106) 93 07/17/17 19:19 95 07/17/17 16:50 98.8 81 18 129/64 (85) 94 07/17/17 12:10 97.9 86 20 115/74 (88) 92 I/O 07/17/17 07/17/17 07/17/17 07/18/17 07/18/17 07/18/17 07:00 15:00 23:00 07:00 15:00 23:00 Intake Total 570 ml 236 ml 715 ml 480 ml Output Total 250 ml 250 ml 425 ml 500 ml Balance 320 ml -14 ml 290 ml -20 ml Intake Oral 570 ml 715 ml 480 ml IV Total 236 ml Output Urine Total 250 ml 250 ml 425 ml 500 ml # Voids 3 2 (Don Page MD R3) Result Diagram: 07/18/17 0303 07/18/17 0303 Objective Remarks General: No acute distress. Heart: Tachycardic rate greater than 100, irregular rhythm. Lungs: Questionable mild scattered wheeze. No crackles noted. Breathing is nonlabored. Abdomen: Soft, nontender, nondistended. Extremities: No lower extremity edema. Psych: Alert and oriented. Neuro: Normal speech. No focal deficits noted. (Don Page MD R3) A/P Assessment and Plan 82-year-old female admitted for dyspnea being treated as multifactorial including atrial fibrillation with RVR and COPD. Cardiology and pulmonology consulted. Plan as below. Discharge Planning Pending further workup and treatment per specialist recommendations. (Don Page MD R3) Attending Attestation Patient seen and examined. This patient has now been hospitalized x 3 since early in June due to increased dyspnea primarily with minimal exertion. He has a component of a cardiomyopathy along with atrial fibrillation with an accellerated ventricular rate that has not yet been controlled. He also has COPD with continued prolongation of his expiratory rate which is probably contributing to his dyspnea. I reviewed his current medical issues with Mr. Valerio and our goals of treatment. Case reviewed and discussed with Dr Page. Agree with plan of care as discussed with me and documented in the resident note. (Nghia Thomas MD) Problem List: (1) Paroxysmal atrial fibrillation ICD Codes: I48.0 - Paroxysmal atrial fibrillation Status: Acute Plan: Cardiology consulted. Metoprolol 25 mg p.o. twice daily Eliquis 5 milligrams twice daily Considering consulting Dr. Black for consideration of ablation if continued problems with elevated heart rate. At this time, the patient is opposed to the idea of an ablation procedure. (2) CHF (congestive heart failure) ICD Codes: I50.9 - Heart failure, unspecified Status: Acute Plan: Cardiology consulted. Echo shows ejection fraction 30-40%. Changed to oral Lasix Continue spironolactone 12.5 mg daily Continue entresto bid (may have to d/c if continued elevated creatinine) Repeat chest x-ray ordered (3) COPD (chronic obstructive pulmonary disease) ICD Codes: J44.9 - Chronic obstructive pulmonary disease, unspecified Status: Chronic Plan: Pulmonology consulted Continue oxygen for sats less than 92 Pulmonary function tests per pulmonology recommendations DuoNeb 4 times daily Azithromycin 500 mg 3 days and Solu-Medrol 40 mg IV every 8 hours 2 days ( both started on 07/18) (4) Acute kidney failure ICD Codes: N17.9 - Acute kidney failure, unspecified Status: Acute Plan: Acute on chronic kidney disease Nephrology consulted Lasix per cardiology (5) Diabetes ICD Codes: E11.9 - Type 2 diabetes mellitus without complications Status: Chronic Plan: Metformin currently on hold We will expect a increase in glucose given steroid administration inpatient May need to consider other options for outpatient diabetes management Currently on sliding scale insulin Consider long-acting insulin while inpatient (6) FEN/PPX Status: Acute Plan: Fluids: tolerating PO Electrolytes: monitor and replace prn Nutrition: heart healthy diet PPX: eliquis 5 mg bid (Don Page MD R3) Problem Qualifiers (1) CHF (congestive heart failure): Qualified Codes: I50.23 - Acute on chronic systolic (congestive) heart failure (2) COPD (chronic obstructive pulmonary disease): Qualified Codes: J44.9 - Chronic obstructive pulmonary disease, unspecified (3) Acute kidney failure: Qualified Codes: N17.9 - Acute kidney failure, unspecified (4) Diabetes: Don Page MD R3 Jul 18, 2017 09:16 Nghia Thomas MD Jul 19, 2017 12:00
--- NOTE | 2017-07-18 09:24 | PD.CARD.PN ---
Subjective Subjective Remarks Dyspnea better. No PND, dizziness, palpitations, CP. Slept very well. Objective Medications Item Value Date Time Spironolactone 12.5 mg 07/18/17 0900 (Aldactone) DAILY/PO Sacubitril/ 1 tab 07/17/17 2100 Valsartan BID/PO 07/18/17 0751 (Entresto 24-26 Mg) Furosemide 20 mg 07/17/17 1800 (Lasix Inj) BID@/IVP 07/18/17 075 Aspirin 81 mg 07/17/17 0900 (Aspirin Chew) DAILY/CHEW 07/18/17 075 Pravastatin Sodium 40 mg 07/17/17 09 (Pravachol) DAILY/PO 07/18/17 075 Spironolactone 12.5 mg 07/17/17 0900 (Aldactone) DAILY/PO 07/18/17 075 Apixaban 5 mg 07/16/17 2100 (Eliquis) BID/PO 07/18/17 075 Metoprolol 12.5 mg 07/16/17 2100 Tartrate BID/PO 07/18/17 075 (Lopressor) Current Medications Medications (Trade) Dose Ordered Sig/Vladimir Route Start Time Stop Time Status Last Admin (NS Flush) 2 ml UNSCH PRN IVF 07/16/17 10:30 07/18/17 06:11 (Eliquis) 5 mg BID PO 07/16/17 21:00 07/18/17 07:50 (Aspirin Chew) 81 mg DAILY CHEW 07/17/17 09:00 07/18/17 07:51 (Lopressor) 12.5 mg BID PO 07/16/17 21:00 07/18/17 07:51 (Pravachol) 40 mg DAILY PO 07/17/17 09:00 07/18/17 07:50 (Aldactone) 12.5 mg DAILY PO 07/17/17 09:00 07/18/17 07:51 (NovoLOG SUPPLEMENTAL SCALE) 1 ACHS SLIDING SCALE SQ 07/16/17 17:00 07/17/17 22:11 (Glucagon Inj) 1 mg UNSCH PRN OTHER 07/16/17 16:00 (D50w (Vial) Inj) 50 ml UNSCH PRN IV PUSH 07/16/17 16:00 (Melatonin) 5 mg HS PRN PO 07/16/17 21:00 07/17/17 22:12 (Atrovent Neb) 0.5 mg Q6HR NEB NEB 07/16/17 22:00 07/17/17 19:19 (Lasix Inj) 20 mg BID@09,18 IVP 07/17/17 18:00 07/18/17 07:52 (Entresto 24-26 Mg) 1 tab BID PO 07/17/17 21:00 07/18/17 07:51 (Aldactone) 12.5 mg DAILY PO 07/18/17 09:00 (Pill Splitter) 1 ea UNSCH PRN OTHER 07/17/17 18:00 (Duoneb Neb) 1 ampule Q6HR NEB NEB 07/17/17 22:00 07/18/17 08:05 (SoluMEDROL INJ) 40 mg Q8HR IV 07/17/17 22:00 07/18/17 06:11 (Zithromax) 500 mg DAILY PO 07/18/17 09:00 07/18/17 07:50 Vital Signs / I&O Vital Signs Date Time Temp Pulse Resp B/P (MAP) Pulse Ox O2 Delivery O2 Flow Rate FiO2 07/18/17 08:06 93 21 07/18/17 07:15 98.0 70 16 138/60 (86) 95 07/18/17 04:16 98.2 87 17 108/85 (93) 93 07/18/17 04:01 103 07/17/17 23:43 98.7 99 17 115/73 (87) 97 07/17/17 20:03 67 18 131/94 (106) 93 07/17/17 19:19 95 07/17/17 16:50 98.8 81 18 129/64 (85) 94 07/17/17 12:10 97.9 86 20 115/74 (88) 92 I/O 07/17/17 07/17/17 07/17/17 07/18/17 07/18/17 07/18/17 07:00 15:00 23:00 07:00 15:00 23:00 Intake Total 570 ml 236 ml 715 ml 480 ml Output Total 250 ml 250 ml 425 ml 500 ml Balance 320 ml -14 ml 290 ml -20 ml Intake Oral 570 ml 715 ml 480 ml IV Total 236 ml Output Urine Total 250 ml 250 ml 425 ml 500 ml # Voids 3 2 Physical Exam GENERAL: Well developed, well nourished. No acute distress. HEENT: Jugular venous pressure is normal. CHEST: Scattered expiratory wheezes. Mildly diminished breath sounds at the bases. CARDIAC: Irregular rate and rhythm without S3, S4, or murmur. ABDOMEN: Soft, nontender, no hepatosplenomegaly. Bowel sounds present. EXTREMITIES: No clubbing, cyanosis, or edema. Laboratory Laboratory Tests Test 07/18/17 03:03 White Blood Count 11.5 TH/MM3 Red Blood Count 4.93 MIL/MM3 Hemoglobin 15.4 GM/DL Hematocrit 45.9 % Mean Corpuscular Volume 93.0 FL Mean Corpuscular Hemoglobin 31.1 PG Mean Corpuscular Hemoglobin Concent 33.5 % Red Cell Distribution Width 14.0 % Platelet Count 292 TH/MM3 Mean Platelet Volume 7.7 FL Neutrophils (%) (Auto) 89.5 % Lymphocytes (%) (Auto) 8.0 % Monocytes (%) (Auto) 1.8 % Eosinophils (%) (Auto) 0.5 % Basophils (%) (Auto) 0.2 % Neutrophils # (Auto) 10.3 TH/MM3 Lymphocytes # (Auto) 0.9 TH/MM3 Monocytes # (Auto) 0.2 TH/MM3 Eosinophils # (Auto) 0.1 TH/MM3 Basophils # (Auto) 0.0 TH/MM3 CBC Comment DIFF FINAL Differential Comment Blood Urea Nitrogen 34 MG/DL Creatinine 1.63 MG/DL Random Glucose 229 MG/DL Calcium Level 9.1 MG/DL Sodium Level 138 MEQ/L Potassium Level 4.7 MEQ/L Chloride Level 101 MEQ/L Carbon Dioxide Level 25.3 MEQ/L Anion Gap 12 MEQ/L Estimat Glomerular Filtration Rate 41 ML/MIN Assessment and Plan Problem List: (1) CHF (congestive heart failure) ICD Codes: I50.9 - Heart failure, unspecified Status: Acute Plan: Clinically improved since admission. Increase in renal indices this morning. Again, suspect his EF is closer to 30% rather than the reported 35-40% . 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 REC continue to monitor renal function; may have to stop Entresto change to oral furosemide Dr. Menezes to see PRN over the weekend (2) Paroxysmal atrial fibrillation ICD Codes: I48.0 - Paroxysmal atrial fibrillation Status: Acute Plan: Remains in atrial fibrillation, occasional paroxysms of elevated HR's. Patient asymptomatic with the dysrhythmia. Thromboembolic risk is high. REC try to increase metoprolol further; if continued problems with elevated HR's , consider consulting Dr. Black for possible ablation though at this time patient opposed to ablation (3) CAD (coronary artery disease) ICD Codes: I25.10 - Atherosclerotic heart disease of [place] coronary artery without angina pectoris Status: Chronic Plan: Stable. Only minimal disease on cath 2015. (4) HTN (hypertension) ICD Codes: I10 - Essential (primary) hypertension Status: Chronic Plan: Hypertension not active issue. Code Status full code Discussed Condition With patient Problem Qualifiers (1) CHF (congestive heart failure): Qualified Codes: I50.23 - Acute on chronic systolic (congestive) heart failure (2) CAD (coronary artery disease): Qualified Codes: I25.10 - Atherosclerotic heart disease of [place] coronary artery without angina pectoris (3) HTN (hypertension): Qualified Codes: I10 - Essential (primary) hypertension Lane Crawford MD Jul 18, 2017 09:24
--- NOTE | 2017-07-18 10:57 | RADRPT ---
EXAM DATE: 07/18/2017 10:50 AM EDT AGE/SEX: 82 years / Male INDICATIONS: Patient has had increased shortness of breath for several months. CLINICAL DATA: This is the patient's subsequent encounter. Patient reports that signs and symptoms h ave been present for 4 - 6 months and indicates a pain score of 0/10. MEDICAL/SURGICAL HISTORY: None. None. COMPARISON: [facility] [place], CHEST SINGLE AP, 07/16/2017. [facility] [place], CT THORAX W CONTRAST, 06/21/2017. . FINDINGS: Frontal and lateral views of the chest demonstrate a normal-sized cardiac silhouette. There is mild e levation of the left hemidiaphragm. There is stable interstitial prominence in the lower lung zones b ilaterally. No pleural effusion or pneumothorax is identified. The bones and soft tissues demonstrate no acute finding. CONCLUSION: Stable chest x-ray with interstitial prominence in the lower lung zones with changes characteristic o f emphysema. Electronically signed by: John Rodríguez MD 07/18/2017 10:56 AM EDT
[2017-07-18 18:32] LABS: BILIRUBIN, URINE NEG (NEG); BLOOD, URINE NEG (NEG); GLUCOSE,URINE 1000 mg/dL (NEG); HYALINE CAST, URINE 15 /lpf (RARE); KETONE, URINE NEG (NEG); MUCUS URINE FEW /lpf (OCC); NITRITE,URINE NEG (NEG); URINE COLOR YELLOW (YELLW/STRAW); URINE LEUKOCYTE ESTERASE NEG (NEG)
[2017-07-18 18:39] LABS: CREATININE, RANDOM URINE 51.3 MG/DL
--- NOTE | 2017-07-18 19:31 | HHI.PR ---
Subjective Remarks He is better. Still on O2 3 L. Cardiology will start him on Entresto.On solumedrol Good output with Diuretics Objective Vital Signs Date Time Temp Pulse Resp B/P (MAP) Pulse Ox O2 Delivery O2 Flow Rate FiO2 07/18/17 16:27 98.5 101 18 125/88 (100) 92 07/18/17 10:52 97.8 78 16 113/70 (84) 93 07/18/17 08:06 93 21 07/18/17 07:15 98.0 70 16 138/60 (86) 95 07/18/17 04:16 98.2 87 17 108/85 (93) 93 07/18/17 04:01 103 07/17/17 23:43 98.7 99 17 115/73 (87) 97 07/17/17 20:03 67 18 131/94 (106) 93 I/O 07/17/17 07/17/17 07/17/17 07/18/17 07/18/17 07/18/17 06:59 14:59 22:59 06:59 14:59 22:59 Intake Total 570 ml 236 ml 715 ml 480 ml 720 ml Output Total 150 ml 350 ml 425 ml 500 ml 400 ml Balance 420 ml -114 ml 290 ml -20 ml 320 ml Intake Oral 570 ml 715 ml 480 ml 720 ml IV Total 236 ml Output Urine Total 150 ml 350 ml 425 ml 500 ml 400 ml # Voids 3 2 Result Diagram: 07/18/17 0303 07/18/17 0303 Objective Remarks GENERAL: This moderately obese, elderly man is alert, pale and mildly dyspneic at rest. HEENT: Head is normocephalic. Pupils are reactive and equal. Throat was injected. Nasal mucosa edematous. Ears reveal no inflammation. NECK: Supple. No bruits. There is mild venous distention at 45 degrees. Trachea midline. No lymphadenopathy. CHEST: Equal movements with an increased AP diameter with diffuse wheezes bilaterally with occasional basilar crackles. HEART: Sounds are irregular, S1 and S2 with no murmur. ABDOMEN: Soft, obese, without masses. No organomegaly. EXTREMITIES: Reveal varicosities and 1+ leg edema. Decreased peripheral pulses. NEUROLOGIC: Reflexes are 1+ with no gross motor deficits. Cranial nerves are grossly intact. SKIN: Dry with a few keratotic skin lesions of the extremities. Assessment and Plan Assessment and Plan IMPRESSION: 1. Pulmonary edema with hypoxemia. 2. Chronic obstructive pulmonary disease with acute exacerbation. 3. Hypertension. 4. Diabetes mellitus type 2. 5. History of degenerative arthritis. Plan : 1. Wean O2 to RA. 2. Continue nebs qid , duoneb 3. Cont lasix 40 mg daily 4. Continue Zithromax 500 mg daily 5. CBC,BMP in am 6. PFT with bronchodilator 7. Taper solumedrol to 40 mg BID X 2 days Nicole Wright MD Jul 18, 2017 19:31
[2017-07-18] MEDS ORDERED: METOPROLOL TARTRATE 25 MG TAB PO SCH (21:00)
[2017-07-18] MEDS: MELATONIN 5 MG TAB PO PRN (22:44)
[2017-07-19] VITALS (9 sets, daily range): BP systolic 109–128; BP diastolic 57–74; PULSE 68–125; RESP 18–20; TEMP 95.3–97.2; O2SAT 92–99
[2017-07-19] MEDS: RESP: IPRATROPIUM 0.5 MG/2.5 ML NEB NEB SCH ×2 (02:51→21:46)
[2017-07-19] MEDS: RESP: ALBUTEROL 2.5 MG/IPRATROPIUM 0.5 MG NEB (SCH) NEB ×3 (02:51→15:53)
[2017-07-19 05:14] LABS: BICARBONATE 22.9 MEQ/L (21.0-32.0); CALCIUM 9.1 MG/DL (8.5-10.1); CREATININE 1.75 MG/DL (0.60-1.30)
[2017-07-19] MEDS ORDERED: FUROSEMIDE 40 MG TAB PO SCH (09:00)
--- NOTE | 2017-07-19 09:27 | HHI.FPPN ---
Subjective Remarks Patient states he slept okay last night. He typically takes 10 mg of melatonin and is requesting this be ordered. He continues to cough and spit up sputum. He denies chest pain, fever, chills. He does continue to remain dyspneic. Telemetry reviewed shows heart rate mostly over 105, and in atrial fibrillation. Patient remains opposed to ablation procedure. He would like to discuss further with cardiology, if in fact they recommend this procedure. (Don Page MD R3) Objective Vitals Vital Signs Date Time Temp Pulse Resp B/P (MAP) Pulse Ox O2 Delivery O2 Flow Rate FiO2 07/19/17 08:00 96.4 68 20 111/57 (75) 95 07/19/17 07:42 125 07/19/17 03:40 95.5 83 18 113/73 (86) 95 07/18/17 23:18 97.3 93 18 121/67 (85) 94 07/18/17 20:28 98.7 80 16 145/58 (87) 94 07/18/17 16:27 98.5 101 18 125/88 (100) 92 07/18/17 10:52 97.8 78 16 113/70 (84) 93 I/O 07/18/17 07/18/17 07/18/17 07/19/17 07/19/17 07/19/17 07:00 15:00 23:00 07:00 15:00 23:00 Intake Total 480 ml 720 ml 480 ml Output Total 500 ml 400 ml 300 ml Balance -20 ml 320 ml 180 ml Intake Oral 480 ml 720 ml 480 ml Output Urine Total 500 ml 400 ml 300 ml # Voids 2 2 # Bowel Movements 0 (Don Page MD R3) Result Diagram: 07/18/17 0303 07/19/17 0404 Imaging Last Impressions Chest X-Ray 07/18/17 0000 Signed Impressions: CONCLUSION: Stable chest x-ray with interstitial prominence in the lower lung zones with ch anges characteristic of emphysema. Objective Remarks General: No acute distress. Heart: Tachycardic rate greater than 100, irregular rhythm. Lungs: Questionable mild scattered wheeze. No crackles noted. Breathing is nonlabored. Abdomen: Soft, nontender, nondistended. Extremities: No lower extremity edema. Psych: Alert and oriented. Neuro: Normal speech. No focal deficits noted. (Don Page MD R3) A/P Assessment and Plan 82-year-old female admitted for dyspnea being treated as multifactorial including atrial fibrillation with RVR and COPD. Cardiology and pulmonology consulted. Plan as below. Discharge Planning Pending further workup and treatment per specialist recommendations. (Don Page MD R3) Attending Attestation Case reviewed and discussed with Dr. Page. I agree with the increase in dosing of metoprolol in an attempt to better control his heart rate. Agree with plan of care otherwise as discussed with me and documented in the resident note. (Nghia Thomas MD) Problem List: (1) Paroxysmal atrial fibrillation ICD Codes: I48.0 - Paroxysmal atrial fibrillation Status: Acute Plan: Cardiology consulted. Metoprolol 25 mg p.o. twice daily- HR remains elevated on tele; per cardiology note- will increase metoprolol to 50 bid since the HR remains elevated. Eliquis 5 milligrams twice daily Considering consulting Dr. Black for consideration of ablation if continued problems with elevated heart rate. At this time, the patient is opposed to the idea of an ablation procedure. (2) CHF (congestive heart failure) ICD Codes: I50.9 - Heart failure, unspecified Status: Acute Plan: Cardiology consulted. Echo shows ejection fraction 30-40%. Changed to oral Lasix Continue spironolactone 12.5 mg daily Continue entresto bid (may have to d/c if continued elevated creatinine) (3) COPD (chronic obstructive pulmonary disease) ICD Codes: J44.9 - Chronic obstructive pulmonary disease, unspecified Status: Chronic Plan: Pulmonology consulted Continue oxygen for sats less than 92 Pulmonary function tests per pulmonology recommendations DuoNeb 4 times daily Azithromycin 500 mg 3 days and Solu-Medrol 40 mg IV every 8 hours 2 days ( both started on 07/18) (4) Acute kidney failure ICD Codes: N17.9 - Acute kidney failure, unspecified Status: Acute Plan: Acute on chronic kidney disease Nephrology consulted Lasix per cardiology (5) Diabetes ICD Codes: E11.9 - Type 2 diabetes mellitus without complications Status: Chronic Plan: Metformin currently on hold We will expect a increase in glucose given steroid administration inpatient May need to consider other options for outpatient diabetes management Currently on sliding scale insulin Consider long-acting insulin while inpatient (6) FEN/PPX Status: Acute Plan: Fluids: tolerating PO Electrolytes: monitor and replace prn Nutrition: heart healthy diet PPX: eliquis 5 mg bid (Don Page MD R3) Problem Qualifiers (1) CHF (congestive heart failure): Qualified Codes: I50.23 - Acute on chronic systolic (congestive) heart failure (2) COPD (chronic obstructive pulmonary disease): Qualified Codes: J44.9 - Chronic obstructive pulmonary disease, unspecified (3) Acute kidney failure: Qualified Codes: N17.9 - Acute kidney failure, unspecified (4) Diabetes: Don Page MD R3 Jul 19, 2017 09:27 Nghia Thomas MD Jul 19, 2017 12:02
[2017-07-19] MEDS: methylPREDNISolone SOD SUCC 40 MG/1 ML VIAL IV SCH ×2 (09:49→21:33)
[2017-07-19] MEDS: ASPIRIN 81 MG CHEW TAB CHEW SCH (09:49)
[2017-07-19] MEDS: AZITHROMYCIN 250 MG TAB PO SCH (09:49)
[2017-07-19] MEDS: SPIRONOLACTONE 25 MG TAB PO SCH (09:50)
[2017-07-19] MEDS: APIXABAN 5 MG TABLET PO SCH ×2 (09:50→21:33)
[2017-07-19] MEDS: PRAVASTATIN SOD 40 MG TAB PO SCH (09:50)
[2017-07-19] MEDS: SACUBITRIL/VALSARTAN 24 MG-26 MG TAB PO SCH ×2 (09:50→23:51)
[2017-07-19] MEDS: INSULIN ASPART SUPPLEMENTAL SCALE SQ SCH ×4 (09:51→23:52)
[2017-07-19] MEDS: METOPROLOL TARTRATE 50 MG TAB PO SCH ×2 (09:53→21:33)
[2017-07-19] MEDS: guaiFENesin/CODEINE SYRUP 200 MG/20 MG/10 ML CUP PO PRN (14:52)
--- NOTE | 2017-07-19 16:19 | HHI.NPPN ---
Objective Data Data 07/19/17 07/20/17 19:00 07:00 Output Total 75 ml Balance -75 ml Output Urine Total 75 ml Vital Signs Date Time Temp Pulse Resp B/P (MAP) Pulse Ox O2 Delivery O2 Flow Rate FiO2 07/19/17 13:29 104 07/19/17 09:59 99 Nasal Cannula 2.00 07/19/17 08:00 96.4 68 20 111/57 (75) 95 07/19/17 07:42 125 07/19/17 03:40 95.5 83 18 113/73 (86) 95 07/18/17 23:18 97.3 93 18 121/67 (85) 94 07/18/17 20:28 98.7 80 16 145/58 (87) 94 07/18/17 16:27 98.5 101 18 125/88 (100) 92 -: 07/18/17 0303 07/19/17 0404 Physical Exam General Appearance: Well Developed, Well Nourished Neck Neck Exam: Neck Supple Pulmonary Resp Exam: Rhonchi Cardiology CV Exam: Arrhythmia Gastrointestinal/Abdomen GI Exam: Soft, Bowel Sounds Present Extremeties Extremities Exam: Moderate Edema Assessment/Plan Problem List: (1) Acute kidney injury ICD Codes: N17.9 - Acute kidney failure, unspecified Plan: Acute kidney injury with a creatinine of 1.63 SYEDA could be prerenal with diuresis Plan His Lasix change to p.o. Creatinine slightly high Has also CHF, agree with diuretics. Cardiology following. Follow the urine out put and BMP. Dr. Olson to follow. (2) HTN (hypertension) ICD Codes: I10 - Essential (primary) hypertension Status: Chronic Plan: Well controlled will monitor Problem Qualifiers (1) HTN (hypertension): Qualified Codes: I10 - Essential (primary) hypertension Syed Amaya MD Jul 19, 2017 16:19
[2017-07-19] MEDS: MELATONIN 5 MG TAB PO SCH (21:33)
[2017-07-20] VITALS (8 sets, daily range): BP systolic 90–119; BP diastolic 55–83; PULSE 54–107; RESP 16–20; TEMP 97–98.1; O2SAT 94–97
[2017-07-20] MEDS: RESP: ALBUTEROL 2.5 MG/IPRATROPIUM 0.5 MG NEB (SCH) NEB ×2 (02:59→21:06)
[2017-07-20] MEDS: INSULIN ASPART SUPPLEMENTAL SCALE SQ SCH ×4 (07:59→20:41)
[2017-07-20] MEDS: methylPREDNISolone SOD SUCC 40 MG/1 ML VIAL IV SCH ×2 (08:01→20:37)
[2017-07-20] MEDS: ASPIRIN 81 MG CHEW TAB CHEW SCH (08:01)
[2017-07-20] MEDS: AZITHROMYCIN 250 MG TAB PO SCH (08:01)
[2017-07-20] MEDS: PRAVASTATIN SOD 40 MG TAB PO SCH (08:02)
[2017-07-20] MEDS: APIXABAN 5 MG TABLET PO SCH ×2 (08:02→20:37)
[2017-07-20] MEDS: SPIRONOLACTONE 25 MG TAB PO SCH (08:02)
[2017-07-20] MEDS: METOPROLOL TARTRATE 50 MG TAB PO SCH ×2 (08:02→20:37)
[2017-07-20] MEDS: SACUBITRIL/VALSARTAN 24 MG-26 MG TAB PO SCH (08:08)
[2017-07-20 08:51] LABS: CALCIUM 8.6 MG/DL (8.5-10.1); CREATININE 2.03 MG/DL (0.60-1.30)
[2017-07-20] MEDS ORDERED: FUROSEMIDE 20 MG TAB PO SCH (09:00)
[2017-07-20] MEDS: RESP: IPRATROPIUM 0.5 MG/2.5 ML NEB NEB SCH ×3 (09:13→21:05)
--- NOTE | 2017-07-20 09:13 | HHI.FPPN ---
Subjective Remarks Patient states he is doing "much better" this morning. He received Robitussin cough syrup yesterday which improved his cough greatly. He feels like his shortness of breath has improved. He denies nausea, vomiting, chest pain, lower extremity edema. (Don Page MD R3) Objective Vitals Vital Signs Date Time Temp Pulse Resp B/P (MAP) Pulse Ox O2 Delivery O2 Flow Rate FiO2 07/20/17 08:53 Room Air 07/20/17 04:00 98.1 85 20 90/55 (67) 94 07/20/17 00:00 97.4 72 20 98/57 (71) 96 07/19/17 21:46 92 21 07/19/17 21:42 95 Room Air 07/19/17 20:00 97.2 91 20 128/74 (92) 95 07/19/17 16:32 104 07/19/17 16:00 95.3 101 20 109/61 (77) 96 07/19/17 13:29 104 07/19/17 09:59 99 Nasal Cannula 2.00 I/O 07/19/17 07/19/17 07/19/17 07/20/17 07/20/17 07/20/17 07:00 15:00 23:00 07:00 15:00 23:00 Intake Total 480 ml 480 ml Output Total 300 ml 75 ml 575 ml 400 ml Balance 180 ml -75 ml -575 ml 80 ml Intake Oral 480 ml 480 ml Output Urine Total 300 ml 75 ml 575 ml 400 ml # Voids 2 # Bowel Movements 0 (Don Page MD R3) Result Diagram: 07/18/17 0303 07/20/17 0723 Objective Remarks General: No acute distress. Heart: Tachycardic rate mostly less than 110, irregular rhythm. Lungs: Questionable mild scattered wheeze. No crackles noted. Breathing is nonlabored. Abdomen: Soft, nontender, nondistended. Extremities: No lower extremity edema. Psych: Alert and oriented. Neuro: Normal speech. No focal deficits noted. (Don Page MD R3) A/P Assessment and Plan 82-year-old female admitted for dyspnea being treated as multifactorial including atrial fibrillation with RVR and COPD. Cardiology and pulmonology consulted. Plan as below. Discharge Planning Pending further workup and treatment per specialist recommendations. (Don Page MD R3) Attending Attestation Patient seen and examined. Case reviewed and discussed with Dr. Page. Agree with plan of care as discussed with me and documented in the resident note. (Nghia Thomas MD) Problem List: (1) Paroxysmal atrial fibrillation ICD Codes: I48.0 - Paroxysmal atrial fibrillation Status: Acute Plan: Cardiology consulted. Continue metoprolol 50 mg p.o. twice daily- HR remains slightly elevated on tele , but mostly less than 110 Eliquis 5 milligrams twice daily Considering consulting Dr. Black for consideration of ablation if continued problems with elevated heart rate. At this time, the patient is opposed to the idea of an ablation procedure. (2) CHF (congestive heart failure) ICD Codes: I50.9 - Heart failure, unspecified Status: Acute Plan: Cardiology consulted. Echo shows ejection fraction 30-40%. Changed to oral Lasix Continue spironolactone 12.5 mg daily Continue entresto bid (may have to d/c if continued elevated creatinine) (3) COPD (chronic obstructive pulmonary disease) ICD Codes: J44.9 - Chronic obstructive pulmonary disease, unspecified Status: Chronic Plan: Pulmonology consulted Continue oxygen for sats less than 92 Pulmonary function tests per pulmonology recommendations continue duonebs per pulm Azithromycin 500 mg 3 days and Solu-Medrol 40 mg IV every 12 hours 2 days ( both started on 07/18) (4) Acute kidney failure ICD Codes: N17.9 - Acute kidney failure, unspecified Status: Acute Plan: Acute on chronic kidney disease Nephrology consulted Holding lasix currently give PE and increased in creatinine (5) Diabetes ICD Codes: E11.9 - Type 2 diabetes mellitus without complications Status: Chronic Plan: Metformin currently on hold We will expect a increase in glucose given steroid administration inpatient May need to consider other options for outpatient diabetes management Currently on sliding scale insulin Consider long-acting insulin while inpatient (6) FEN/PPX Status: Acute Plan: Fluids: tolerating PO Electrolytes: monitor and replace prn Nutrition: heart healthy diet PPX: eliquis 5 mg bid (Don Page MD R3) Problem Qualifiers (1) CHF (congestive heart failure): Qualified Codes: I50.23 - Acute on chronic systolic (congestive) heart failure (2) COPD (chronic obstructive pulmonary disease): Qualified Codes: J44.9 - Chronic obstructive pulmonary disease, unspecified (3) Acute kidney failure: Qualified Codes: N17.9 - Acute kidney failure, unspecified (4) Diabetes: Don Page MD R3 Jul 20, 2017 09:13 Nghia Thomas MD Jul 21, 2017 09:32
--- NOTE | 2017-07-20 13:54 | HHI.NPPN ---
Objective Data Data Vital Signs Date Time Temp Pulse Resp B/P (MAP) Pulse Ox O2 Delivery O2 Flow Rate FiO2 07/20/17 08:53 Room Air 07/20/17 04:00 98.1 85 20 90/55 (67) 94 07/20/17 00:00 97.4 72 20 98/57 (71) 96 07/19/17 21:46 92 21 07/19/17 21:42 95 Room Air 07/19/17 20:00 97.2 91 20 128/74 (92) 95 07/19/17 16:32 104 07/19/17 16:00 95.3 101 20 109/61 (77) 96 -: 07/18/17 0303 07/20/17 0723 Physical Exam General Appearance: Well Developed, Well Nourished Neck Neck Exam: Neck Supple Pulmonary Resp Exam: Rhonchi Cardiology CV Exam: Arrhythmia Gastrointestinal/Abdomen GI Exam: Soft, Bowel Sounds Present Extremeties Extremities Exam: Moderate Edema Assessment/Plan Problem List: (1) Acute kidney injury ICD Codes: N17.9 - Acute kidney failure, unspecified Plan: Acute kidney injury with a creatinine of 1.63 [place] could be prerenal with diuresis Plan His Lasix change to p.o. Creatinine slightly high 2.03 high BG 397 poorly managed BG leading to low sodium/higher creatinine need long acting Insulin Has also CHF, diuretic on hold Cardiology following. Follow the urine out put and BMP. Dr. Olson to follow. (2) HTN (hypertension) ICD Codes: I10 - Essential (primary) hypertension Status: Chronic Plan: Well controlled will monitor Problem Qualifiers (1) HTN (hypertension): Qualified Codes: I10 - Essential (primary) hypertension Syed Amaya MD Jul 20, 2017 13:54
--- NOTE | 2017-07-20 15:11 | EKG ---
Date Performed: 07/19/2017 Time Performed: 14:10:03 PTAGE: 82 years EKG: ATRIAL FIBRILLATION WITH RAPID VENTRICULAR RESPONSE WITH ABERRANT CONDUCTION OR VENTRICULAR PREMATURE COMPLEXES MARKED RIGHT AXIS DEVIATION RIGHT BUNDLE BRANCH BLOCK ABNORMAL ECG NO PREVIOUS TRACING DOCTOR: Lux Avila Interpretating Date/Time 07/20/2017 15:09:57
--- NOTE | 2017-07-20 17:03 | HHI.PR ---
Subjective Remarks ALERT NO DISTRESS Objective Vital Signs Date Time Temp Pulse Resp B/P (MAP) Pulse Ox O2 Delivery O2 Flow Rate FiO2 07/20/17 12:00 97.5 82 18 105/58 (74) 96 07/20/17 08:53 Room Air 07/20/17 08:00 97.0 54 18 109/66 (80) 97 07/20/17 04:00 98.1 85 20 90/55 (67) 94 07/20/17 00:00 97.4 72 20 98/57 (71) 96 07/19/17 21:46 92 21 07/19/17 21:42 95 Room Air 07/19/17 20:00 97.2 91 20 128/74 (92) 95 I/O 07/19/17 07/19/17 07/19/17 07/20/17 07/20/17 07/20/17 07:00 15:00 23:00 07:00 15:00 23:00 Intake Total 480 ml 480 ml Output Total 300 ml 75 ml 575 ml 400 ml 250 ml 400 ml Balance 180 ml -75 ml -575 ml 80 ml -250 ml -400 ml Intake Oral 480 ml 480 ml Output Urine Total 300 ml 75 ml 575 ml 400 ml 250 ml 400 ml # Voids 2 1 # Bowel Movements 0 Result Diagram: 07/18/17 0303 07/20/17 0723 Objective Remarks GENERAL: SKIN: Warm and dry. HEAD: Atraumatic. Normocephalic. EYES: Pupils equal and round. No scleral icterus. No injection or drainage. ENT: No nasal bleeding or discharge. Mucous membranes pink and moist. NECK: Trachea midline. No JVD. CARDIOVASCULAR: Regular rate and rhythm. RESPIRATORY: No accessory muscle use. Clear to auscultation. Breath sounds equal bilaterally. GASTROINTESTINAL: Abdomen soft, non-tender, nondistended. Hepatic and splenic margins not palpable. MUSCULOSKELETAL: Extremities without clubbing, cyanosis, or edema. No obvious deformities. NEUROLOGICAL: Awake and alert. No obvious cranial nerve deficits. Motor grossly within normal limits. Five out of 5 muscle strength in the arms and legs. Normal speech. PSYCHIATRIC: Appropriate mood and affect; insight and judgment normal. Assessment and Plan Assessment and Plan IMP COPD CHF DM HTN PLAN O2 NEEDED BRONCHODILATOR THERAPY INCREASE ACTIVITY Rl Shine MD Jul 20, 2017 17:03
[2017-07-20] MEDS: MELATONIN 5 MG TAB PO SCH (20:37)
[2017-07-20] MEDS: guaiFENesin/CODEINE SYRUP 200 MG/20 MG/10 ML CUP PO PRN (23:37)
[2017-07-21] VITALS (7 sets, daily range): BP systolic 102–138; BP diastolic 57–80; PULSE 84–104; RESP 18; TEMP 97.3–98.2; O2SAT 92–98
[2017-07-21] MEDS: RESP: ALBUTEROL 2.5 MG/IPRATROPIUM 0.5 MG NEB (SCH) NEB ×3 (02:46→21:35)
[2017-07-21] MEDS: RESP: IPRATROPIUM 0.5 MG/2.5 ML NEB NEB SCH ×2 (02:46→10:00)
[2017-07-21] MEDS: guaiFENesin/CODEINE SYRUP 200 MG/20 MG/10 ML CUP PO PRN ×3 (06:03→21:50)
--- NOTE | 2017-07-21 07:27 | PD.CARD.PN ---
Subjective Subjective Remarks Dyspnea continues to improve. No PND, dizziness, palpitations, CP. Objective Medications Item Value Date Time Apixaban 2.5 mg 07/20/17 2100 (Eliquis) BID/PO 07/20/172036 Metoprolol 50 mg 07/19/1730 Tartrate Q12HR/PO 07/20/172036 (Lopressor) Spironolactone 12.5 mg 07/18/17899 (Aldactone) DAILY/PO 07/20/17801 Aspirin 81 mg 07/17/17899 (Aspirin Chew) DAILY/CHEW 07/20/17800 Pravastatin Sodium 40 mg 07/17/17899 (Pravachol) DAILY/PO 07/20/17801 Current Medications Medications (Trade) Dose Ordered Sig/Vladimir Route Start Time Stop Time Status Last Admin (NS Flush) 2 ml UNSCH PRN IVF 07/16/17 10:30 07/18/17 22:44 (Aspirin Chew) 81 mg DAILY CHEW 07/17/17 09:00 07/20/17 08:01 (Pravachol) 40 mg DAILY PO 07/17/17 09:00 07/20/17 08:02 (NovoLOG SUPPLEMENTAL SCALE) 1 ACHS SLIDING SCALE SQ 07/16/17 17:00 07/20/17 20:41 (Glucagon Inj) 1 mg UNSCH PRN OTHER 07/16/17 16:00 (D50w (Vial) Inj) 50 ml UNSCH PRN IV PUSH 07/16/17 16:00 (Atrovent Neb) 0.5 mg Q6HR NEB NEB 07/16/17 22:00 07/20/17 09:13 (Aldactone) 12.5 mg DAILY PO 07/18/17 09:00 07/20/17 08:02 (Pill Splitter) 1 ea UNSCH PRN OTHER 07/17/17 18:00 (Duoneb Neb) 1 ampule Q6HR NEB NEB 07/17/17 22:00 07/19/17 15:53 (Zithromax) 500 mg DAILY PO 07/18/17 09:00 07/20/17 08:01 (SoluMEDROL INJ) 40 mg BID IV 07/18/17 21:00 07/20/17 20:37 (Melatonin) 10 mg HS PO 07/19/17 21:00 07/20/17 20:37 (Lopressor) 50 mg Q12HR PO 07/19/17 09:30 07/20/17 20:37 (Lasix) 20 mg DAILY PO 07/20/17 09:00 Future Hold 07/20/17 08:02 (Robitussin Ac 200-20 Mg/10 ml Liq) 10 ml Q4H PRN PO 07/19/17 14:15 07/21/17 06:03 (Eliquis) 2.5 mg BID PO 07/20/17 21:00 07/20/17 20:37 Vital Signs / I&O Vital Signs Date Time Temp Pulse Resp B/P (MAP) Pulse Ox O2 Delivery O2 Flow Rate FiO2 07/21/17 04:10 97.7 84 18 102/60 (74) 95 07/21/17 04:00 90 07/20/17 23:50 97.5 104 18 119/83 (95) 95 07/20/17 20:25 97.4 99 17 107/69 (82) 96 Manual Cuff/Auscultation 07/20/17 20:04 107 07/20/17 16:00 98.0 94 16 99/58 (72) 94 07/20/17 12:00 97.5 82 18 105/58 (74) 96 07/20/17 08:53 Room Air 07/20/17 08:00 97.0 54 18 109/66 (80) 97 I/O 07/20/17 07/20/17 07/20/17 07/21/17 07/21/17 07/21/17 07:00 15:00 23:00 07:00 15:00 23:00 Intake Total 480 ml 480 ml Output Total 400 ml 250 ml 400 ml 900 ml Balance 80 ml -250 ml -400 ml -420 ml Intake Oral 480 ml 480 ml Output Urine Total 400 ml 250 ml 400 ml 900 ml # Voids 1 # Bowel Movements 0 Physical Exam GENERAL: Well developed, well nourished. No acute distress. HEENT: Jugular venous pressure is normal. CHEST: Diminished breath sounds bases. CARDIAC: Irregular rate and rhythm without S3, S4, or murmur. ABDOMEN: Soft, nontender, no hepatosplenomegaly. Bowel sounds present. EXTREMITIES: No clubbing, cyanosis, or edema. Assessment and Plan Problem List: (1) CHF (congestive heart failure) ICD Codes: I50.9 - Heart failure, unspecified Status: Acute Plan: Clinically improved since admission. Again, suspect his EF is closer to 30% rather than the reported 35-40%. 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 REC Entresto, furosemide stopped for now with increasing renal indices, await repeat BMP (2) Paroxysmal atrial fibrillation ICD Codes: I48.0 - Paroxysmal atrial fibrillation Status: Acute Plan: Remains in atrial fibrillation, HR's fluctuating, overall better. Patient asymptomatic with the dysrhythmia. Thromboembolic risk is high. REC continue metoprolol; apixaban dosing reduced for now with increased renal indices, continue baby aspirin (3) CAD (coronary artery disease) ICD Codes: I25.10 - Atherosclerotic heart disease of [place] coronary artery without angina pectoris Status: Chronic Plan: Stable. No angina symptoms. Only minimal disease on cath 2015. (4) HTN (hypertension) ICD Codes: I10 - Essential (primary) hypertension Status: Chronic Plan: Hypertension not active issue. Code Status full code Discussed Condition With patient Problem Qualifiers (1) CHF (congestive heart failure): Qualified Codes: I50.23 - Acute on chronic systolic (congestive) heart failure (2) CAD (coronary artery disease): Qualified Codes: I25.10 - Atherosclerotic heart disease of [place] coronary artery without angina pectoris (3) HTN (hypertension): Qualified Codes: I10 - Essential (primary) hypertension Lane Crawford MD Jul 21, 2017 07:27
--- NOTE | 2017-07-21 08:13 | HHI.FPPN ---
Subjective Remarks Pt seen and examined this morning. No acute events overnight. He denies chest pain, palpitations, breathing is stable. He denies abdominal pain. No issues voiding or stooling. He reports that he is feeling improved overall, he denies any additional acute concerns. (Natasha Hay MD R3) Objective Vitals Vital Signs Date Time Temp Pulse Resp B/P (MAP) Pulse Ox O2 Delivery O2 Flow Rate FiO2 07/21/17 04:10 97.7 84 18 102/60 (74) 95 07/21/17 04:00 90 07/20/17 23:50 97.5 104 18 119/83 (95) 95 07/20/17 20:25 97.4 99 17 107/69 (82) 96 Manual Cuff/Auscultation 07/20/17 20:04 107 07/20/17 16:00 98.0 94 16 99/58 (72) 94 07/20/17 12:00 97.5 82 18 105/58 (74) 96 07/20/17 08:53 Room Air I/O 07/20/17 07/20/17 07/20/17 07/21/17 07/21/17 07/21/17 07:00 15:00 23:00 07:00 15:00 23:00 Intake Total 480 ml 480 ml Output Total 400 ml 250 ml 400 ml 900 ml Balance 80 ml -250 ml -400 ml -420 ml Intake Oral 480 ml 480 ml Output Urine Total 400 ml 250 ml 400 ml 900 ml # Voids 1 # Bowel Movements 0 (Natasha Hay MD R3) Result Diagram: 07/18/17 0303 07/20/17 0723 Objective Remarks General: No acute distress. Heart: Tachycardic rate, irregular rhythm. Lungs: Diffuse expiratory wheeze, mild. No crackles noted. Abdomen: Soft, nontender, nondistended. Extremities: No lower extremity edema, no calf tenderness, Homans sign negative. Psych: Alert and oriented. Neuro: Normal speech. No focal deficits noted. (Natasha Hay MD R3) A/P Assessment and Plan 82-year-old female admitted for dyspnea being treated as multifactorial including atrial fibrillation with RVR and COPD. Cardiology and pulmonology consulted. Plan as below. Discharge Planning Anticipate discharge once patient has been cleared by bond broker, nephrology and pulmonology. Likely 2-3 days. (Natasha Hay MD R3) Attending Attestation Patient seen and examined. Patient's daughter called in during my visit and I updated her on her fathers current status with patient;s permission. Case reviewed and discussed with Dr. Hay. Agree with plan of care as discussed with me and documented in the resident note. (Nghia Thomas MD) Problem List: (1) Paroxysmal atrial fibrillation ICD Codes: I48.0 - Paroxysmal atrial fibrillation Status: Acute Plan: Cardiology consulted, appreciate recommendations Continue metoprolol 50 mg p.o. twice daily, continue to monitor heart rate Eliquis 2.5 milligrams twice daily per cardiology Considering consulting Dr. Black for consideration of ablation if continued problems with elevated heart rate, if patient is agreeable. At this time, the patient is opposed to the idea of an ablation procedure. (2) CHF (congestive heart failure) ICD Codes: I50.9 - Heart failure, unspecified Status: Acute Plan: Cardiology consulted. Echo shows ejection fraction 30-40%. Changed to oral Lasix, HELD see plan below regarding kidney function Continue spironolactone 12.5 mg daily Continue entresto bid (may have to d/c if continued elevated creatinine) (3) COPD (chronic obstructive pulmonary disease) ICD Codes: J44.9 - Chronic obstructive pulmonary disease, unspecified Status: Chronic Plan: Pulmonology consulted Continue oxygen for sats less than 92 Pulmonary function tests per pulmonology recommendations continue duonebs per pulm Azithromycin 500 mg 4 days given, Stopped today Solu-Medrol 40 mg IV every 12 hours 3 days, tapered to 40mg IV once daily on , Continue to taper (4) Acute kidney failure ICD Codes: N17.9 - Acute kidney failure, unspecified Status: Acute Plan: Acute on chronic kidney disease, slightly improved Nephrology consulted, appreciate recommendations Avoid nephrotoxic agents Holding lasix currently due to increased creatinine (5) Diabetes ICD Codes: E11.9 - Type 2 diabetes mellitus without complications Status: Chronic Plan: Metformin currently on hold We will expect a increase in glucose given steroid administration inpatient May need to consider other options for outpatient diabetes management Currently on sliding scale insulin Consider long-acting insulin while inpatient if sugars consistently run high (6) FEN/PPX Status: Acute Plan: Fluids: tolerating PO Electrolytes: monitor and replace prn Nutrition: heart healthy diet PPX: eliquis 2.5 mg bid (Natasha Hay MD R3) Problem Qualifiers (1) CHF (congestive heart failure): Qualified Codes: I50.23 - Acute on chronic systolic (congestive) heart failure (2) COPD (chronic obstructive pulmonary disease): Qualified Codes: J44.9 - Chronic obstructive pulmonary disease, unspecified (3) Acute kidney failure: Qualified Codes: N17.9 - Acute kidney failure, unspecified (4) Diabetes: Natasha Hay MD R3 Jul 21, 2017 08:13 Nghia Thomas MD Jul 23, 2017 11:03
[2017-07-21] MEDS: APIXABAN 5 MG TABLET PO SCH ×2 (08:27→21:46)
[2017-07-21] MEDS: SPIRONOLACTONE 25 MG TAB PO SCH (08:27)
[2017-07-21] MEDS: INSULIN ASPART SUPPLEMENTAL SCALE SQ SCH ×4 (08:27→21:47)
[2017-07-21] MEDS: AZITHROMYCIN 250 MG TAB PO SCH (08:27)
[2017-07-21] MEDS: ASPIRIN 81 MG CHEW TAB CHEW SCH (08:28)
[2017-07-21] MEDS: PRAVASTATIN SOD 40 MG TAB PO SCH (08:28)
[2017-07-21] MEDS: methylPREDNISolone SOD SUCC 40 MG/1 ML VIAL IV SCH (08:28)
[2017-07-21] MEDS: METOPROLOL TARTRATE 50 MG TAB PO SCH ×2 (08:28→21:45)
[2017-07-21 09:37] LABS: BICARBONATE 21.6 MEQ/L (21.0-32.0); CALCIUM 8.6 MG/DL (8.5-10.1); CREATININE 1.89 MG/DL (0.60-1.30)
--- NOTE | 2017-07-21 10:10 | HHI.NPPN ---
Subjective History of Present Illness Patient is a 82 male with past medical history of diabetes, chronic obstructive pulmonary disease, history of cardiomyopathy, hyperlipidemia, BPH, and sleep apnea. 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 Nephrology is consulted for elevated creatinine of 1.63 today and potassium level of 4.7. Creatinine at 1.07 noted on June 19, 2017. Does not report previous history of kidney disease. Elevated in creatinine could be prerenal related to diuresis or upper respiratory infection. Denies any nausea, vomiting, diarrhea, or any changes in oral intake. Denies NSAID use. Additional Remarks Reports mild shortness of breath and cough. Creatinine and sodium levels improving. (Chantal Coppola) Review of Systems Respiratory Lungs: SOB (Chantal Coppola) Cardiovascular Cardiac Remarks Denies chest pain (Chantal Coppola) Gastrointestinal GI Remarks Denies abdominal pain (Chantal Coppola) Objective Data Data 07/21/17 07/22/17 19:00 07:00 Output Total 425 ml Balance -425 ml Output Urine Total 425 ml Vital Signs Date Time Temp Pulse Resp B/P (MAP) Pulse Ox O2 Delivery O2 Flow Rate FiO2 07/21/17 08:18 90 18 138/68 (91) 92 07/21/17 04:10 97.7 84 18 102/60 (74) 95 07/21/17 04:00 90 07/20/17 23:50 97.5 104 18 119/83 (95) 95 07/20/17 20:25 97.4 99 17 107/69 (82) 96 Manual Cuff/Auscultation 07/20/17 20:04 107 07/20/17 16:00 98.0 94 16 99/58 (72) 94 07/20/17 12:00 97.5 82 18 105/58 (74) 96 (Chantal Coppola) -: 07/18/17 0303 07/21/17 0825 Imaging Last Impressions Chest X-Ray 07/18/17 0000 Signed Impressions: CONCLUSION: Stable chest x-ray with interstitial prominence in the lower lung zones with ch anges characteristic of emphysema. (Chantal Coppola) Physical Exam General Appearance: Well Developed, Well Nourished (Chantal Coppola) Neck Neck Exam: Neck Supple (Chantal Coppola) Pulmonary Resp Exam: Breath Sounds Equal, Rhonchi (Chantal Coppola) Cardiology CV Exam: Arrhythmia (Chantal Coppola) Gastrointestinal/Abdomen GI Exam: Soft, Bowel Sounds Present (Chantal Coppola) Extremeties Extremities Exam: Moderate Edema (Chantal Coppola) Neurologic Neuro Exam: Alert, Awake, Oriented (Chantal Coppola) Psychiatric Psych Exam: Appropriate Responses (Chantal Coppola) Assessment/Plan Problem List: (1) Acute kidney injury ICD Codes: N17.9 - Acute kidney failure, unspecified Plan: Acute kidney injury with a creatinine of 1.63 on day of consult SYEDA could be prerenal with diuresis Plan Creatinine improving at 1.89 today Continue to hold lasix has hx of CHF Blood sugar elevated could benefit from long acting insulin Follow the urine out put and BMP. (2) HTN (hypertension) ICD Codes: I10 - Essential (primary) hypertension Status: Chronic Plan: Well controlled will monitor (3) Diabetes ICD Codes: E11.9 - Type 2 diabetes mellitus without complications Status: Chronic Plan: Maintain blood sugars between 140 mg/dl to 180 mg/dl (Chantal Coppola) Problem List: (1) Acute kidney injury ICD Codes: N17.9 - Acute kidney failure, unspecified Plan: Acute kidney injury with a creatinine of 1.63 on day of consult SYEDA could be prerenal with diuresis Plan Creatinine improving at 1.89 today Continue to hold lasix has hx of CHF Blood sugar elevated could benefit from long acting insulin Follow the urine out put and BMP. Patient seen and examined, agree with above. Creatinine is improving. (2) HTN (hypertension) ICD Codes: I10 - Essential (primary) hypertension Status: Chronic Plan: Well controlled will monitor (3) Diabetes ICD Codes: E11.9 - Type 2 diabetes mellitus without complications Status: Chronic Plan: Maintain blood sugars between 140 mg/dl to 180 mg/dl (Nevin Olson MD) Problem Qualifiers (1) HTN (hypertension): Qualified Codes: I10 - Essential (primary) hypertension (2) Diabetes: Chantal Coppola Jul 21, 2017 10:10 Nevin Olson MD Jul 22, 2017 00:40
--- NOTE | 2017-07-21 17:34 | HHI.PR ---
Subjective Remarks He feels better. Still on O2 3 L. Cardiology will start him on Entresto. On solumedrol still. Leg edema is less Objective Vital Signs Date Time Temp Pulse Resp B/P (MAP) Pulse Ox O2 Delivery O2 Flow Rate FiO2 07/21/17 16:33 93 21 07/21/17 16:00 98.2 90 18 106/77 (87) 98 07/21/17 12:00 97.6 93 18 118/57 (77) 92 07/21/17 08:18 90 18 138/68 (91) 92 07/21/17 04:10 97.7 84 18 102/60 (74) 95 07/21/17 04:00 90 07/20/17 23:50 97.5 104 18 119/83 (95) 95 07/20/17 20:25 97.4 99 17 107/69 (82) 96 Manual Cuff/Auscultation 07/20/17 20:04 107 I/O 07/20/17 07/20/17 07/20/17 07/21/17 07/21/17 07/21/17 07:00 15:00 23:00 07:00 15:00 23:00 Intake Total 480 ml 480 ml Output Total 400 ml 250 ml 400 ml 900 ml 850 ml Balance 80 ml -250 ml -400 ml -420 ml -850 ml Intake Oral 480 ml 480 ml Output Urine Total 400 ml 250 ml 400 ml 900 ml 850 ml # Voids 1 # Bowel Movements 0 Result Diagram: 07/18/17 0303 07/21/17 0825 Objective Remarks GENERAL: This moderately obese, elderly man is alert, pale and mildly dyspneic at rest. HEENT: Head is normocephalic. Pupils are reactive and equal. Throat was injected. Nasal mucosa edematous. Ears reveal no inflammation. NECK: Supple. No bruits. There is mild venous distention . Trachea midline. No lymphadenopathy. CHEST: Equal movements with an increased AP diameter with diffuse wheezes bilaterally with occasional basilar crackles. HEART: Sounds are irregular, S1 and S2 with no murmur. ABDOMEN: Soft, obese, without masses. No organomegaly. EXTREMITIES: Reveal varicosities and 1+ leg edema. Decreased peripheral pulses. NEUROLOGIC: Reflexes are 1+ with no gross motor deficits. Cranial nerves are grossly intact. SKIN: Dry with a few keratotic skin lesions of the extremities. Assessment and Plan Assessment and Plan IMPRESSION: 1. Pulmonary edema with hypoxemia. 2. Chronic obstructive pulmonary disease with acute exacerbation. 3. Hypertension. 4. Diabetes mellitus type 2. 5. History of degenerative arthritis. Plan : 1. Wean O2 to RA. 2. Continue nebs qid , duoneb 3. Cont lasix 40 mg daily 4. D/C Zithromax 5. CBC,BMP in am 6. PFT with bronchodilator 7. D/C solumedrol Nicole Wright MD Jul 21, 2017 17:34
[2017-07-21] MEDS: MELATONIN 5 MG TAB PO SCH (21:45)
[2017-07-22] VITALS (7 sets, daily range): BP systolic 95–144; BP diastolic 64–80; PULSE 52–110; RESP 17–20; TEMP 97–99.1; O2SAT 93–95
[2017-07-22] MEDS: guaiFENesin/CODEINE SYRUP 200 MG/20 MG/10 ML CUP PO PRN (01:50)
[2017-07-22 05:19] LABS: BICARBONATE 24.9 MEQ/L (21.0-32.0); CALCIUM 8.7 MG/DL (8.5-10.1); CREATININE 1.7 MG/DL (0.60-1.30)
[2017-07-22] MEDS: INSULIN ASPART SUPPLEMENTAL SCALE SQ SCH ×4 (07:37→21:02)
[2017-07-22] MEDS: ASPIRIN 81 MG CHEW TAB CHEW SCH (07:38)
[2017-07-22] MEDS: METOPROLOL TARTRATE 50 MG TAB PO SCH ×2 (07:39→21:02)
[2017-07-22] MEDS: SPIRONOLACTONE 25 MG TAB PO SCH (07:39)
[2017-07-22] MEDS: PRAVASTATIN SOD 40 MG TAB PO SCH (07:39)
[2017-07-22] MEDS: APIXABAN 5 MG TABLET PO SCH ×2 (07:39→21:02)
--- NOTE | 2017-07-22 07:51 | PD.CARD.PN ---
Subjective Subjective Remarks Mild intermittent dyspnea. Overall dyspnea much better. No PND, dizziness, palpitations, CP. Objective Medications Item Value Date Time Apixaban 2.5 mg 07/20/17 2100 (Eliquis) BID/PO 07/22/17 0739 Metoprolol 50 mg 07/19/17 0930 Tartrate Q12HR/PO 07/22/17 0739 (Lopressor) Spironolactone 12.5 mg 07/18/17 09 (Aldactone) DAILY/PO 07/22/17 0739 Aspirin 81 mg 07/17/17 09 (Aspirin Chew) DAILY/CHEW 07/22/17 0738 Current Medications Medications (Trade) Dose Ordered Sig/Vladimir Route Start Time Stop Time Status Last Admin (NS Flush) 2 ml UNSCH PRN IVF 07/16/17 10:30 07/18/17 22:44 (Aspirin Chew) 81 mg DAILY CHEW 07/17/17 09:00 07/22/17 07:38 (Pravachol) 40 mg DAILY PO 07/17/17 09:00 07/22/17 07:39 (NovoLOG SUPPLEMENTAL SCALE) 1 ACHS SLIDING SCALE SQ 07/16/17 17:00 07/21/17 21:47 (Glucagon Inj) 1 mg UNSCH PRN OTHER 07/16/17 16:00 (D50w (Vial) Inj) 50 ml UNSCH PRN IV PUSH 07/16/17 16:00 (Atrovent Neb) 0.5 mg Q6HR NEB NEB 07/16/17 22:00 07/20/17 09:13 (Aldactone) 12.5 mg DAILY PO 07/18/17 09:00 07/22/17 07:39 (Pill Splitter) 1 ea UNSCH PRN OTHER 07/17/17 18:00 (Melatonin) 10 mg HS PO 07/19/17 21:00 07/21/17 21:45 (Lopressor) 50 mg Q12HR PO 07/19/17 09:30 07/22/17 07:39 (Lasix) 20 mg DAILY PO 07/20/17 09:00 Future Hold 07/20/17 08:02 (Robitussin Ac 200-20 Mg/10 ml Liq) 10 ml Q4H PRN PO 07/19/17 14:15 07/22/17 01:50 (Eliquis) 2.5 mg BID PO 07/20/17 21:00 07/22/17 07:39 (SoluMEDROL INJ) 40 mg DAILY IV PUSH 07/22/17 09:00 07/22/17 07:38 Vital Signs / I&O Vital Signs Date Time Temp Pulse Resp B/P (MAP) Pulse Ox O2 Delivery O2 Flow Rate FiO2 07/22/17 07:34 99.1 106 18 144/80 (101) 93 07/22/17 04:00 97.3 71 17 95/64 (74) 93 07/22/17 00:01 97.2 99 18 134/73 (93) 95 07/21/17 21:40 Room Air 21 07/21/17 20:00 97.3 104 18 127/80 (96) 95 07/21/17 16:33 93 21 07/21/17 16:00 98.2 90 18 106/77 (87) 98 07/21/17 12:00 97.6 93 18 118/57 (77) 92 07/21/17 08:18 90 18 138/68 (91) 92 I/O 07/21/17 07/21/17 07/21/17 07/22/17 07/22/17 07/22/17 07:00 15:00 23:00 07:00 15:00 23:00 Intake Total 480 ml 660 ml 360 ml Output Total 900 ml 850 ml 700 ml 1025 ml 100 ml Balance -420 ml -850 ml -40 ml -665 ml -100 ml Intake Oral 480 ml 660 ml 360 ml Output Urine Total 900 ml 850 ml 700 ml 1025 ml 100 ml # Bowel Movements 0 Physical Exam GENERAL: Well developed, well nourished. No acute distress. HEENT: Jugular venous pressure is normal. CHEST: Diminished breath sounds bases. No wheezes. CARDIAC: Irregular rate and rhythm without S3, S4, or murmur. ABDOMEN: Soft, nontender, no hepatosplenomegaly. Bowel sounds present. EXTREMITIES: No clubbing, cyanosis, or edema. Laboratory Laboratory Tests Test 07/21/17 08:25 07/22/17 04:57 Blood Urea Nitrogen 75 MG/DL 68 MG/DL Creatinine 1.89 MG/DL 1.70 MG/DL Random Glucose 219 MG/DL 144 MG/DL Calcium Level 8.6 MG/DL 8.7 MG/DL Sodium Level 133 MEQ/L 135 MEQ/L Potassium Level 5.0 MEQ/L 5.2 MEQ/L Chloride Level 99 MEQ/L 101 MEQ/L Carbon Dioxide Level 21.6 MEQ/L 24.9 MEQ/L Anion Gap 12 MEQ/L 9 MEQ/L Estimat Glomerular Filtration Rate 34 ML/MIN 39 ML/MIN Assessment and Plan Problem List: (1) CHF (congestive heart failure) ICD Codes: I50.9 - Heart failure, unspecified Status: Acute Plan: Clinically much improved since admission. Again, suspect his EF is closer to 30% rather than the reported 35-40%. 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 REC keep off EZ-I, ARB, Entresto with his renal insufficiency consider stopping spironolactone with increasing K; resume furosemide repeat CXR will f/u as needed; patient can f/u with Dr. Mccord post discharge (2) Paroxysmal atrial fibrillation ICD Codes: I48.0 - Paroxysmal atrial fibrillation Status: Acute Plan: Remains in atrial fibrillation, HR's fluctuating, mostly controlled. Thromboembolic risk is high. REC continue metoprolol; apixaban dosing reduced for now with increased renal indices, continue baby aspirin (3) CAD (coronary artery disease) ICD Codes: I25.10 - Atherosclerotic heart disease of [place] coronary artery without angina pectoris Status: Chronic Plan: Stable. No angina symptoms. Only minimal disease on cath 2015. (4) HTN (hypertension) ICD Codes: I10 - Essential (primary) hypertension Status: Chronic Plan: Hypertension not active issue. Code Status full code Discussed Condition With patient Problem Qualifiers (1) CHF (congestive heart failure): Qualified Codes: I50.23 - Acute on chronic systolic (congestive) heart failure (2) CAD (coronary artery disease): Qualified Codes: I25.10 - Atherosclerotic heart disease of [place] coronary artery without angina pectoris (3) HTN (hypertension): Qualified Codes: I10 - Essential (primary) hypertension Lane Crawford MD Jul 22, 2017 07:51
[2017-07-22] MEDS ORDERED: methylPREDNISolone SOD SUCC 40 MG/1 ML VIAL IV PUSH SCH (09:00)
[2017-07-22] MEDS: RESP: IPRATROPIUM 0.5 MG/2.5 ML NEB NEB SCH ×3 (09:15→20:45)
--- NOTE | 2017-07-22 09:23 | RADRPT ---
EXAM DATE: 07/22/2017 8:25 AM EDT AGE/SEX: 82 years / Male INDICATIONS: Short of breath CLINICAL DATA: This is the patient's subsequent encounter. Patient reports that signs and symptoms h ave been present for 1 week and indicates a pain score of 0/10. MEDICAL/SURGICAL HISTORY: Chronic obstructive pulmonary disease. A-fib None. [place] [facility] [place]. . FINDINGS: The heart is mildly prominent. The pulmonary vascular pattern is normal. The lungs are clear. There i s elevation of the left hemidiaphragm. CONCLUSION: 1. Slight elevation of the left hemidiaphragm. 2. No acute focal pulmonary infiltrate or pulmonary vascular congestion. Electronically signed by: Dusty Chanel MD 07/22/2017 9:22 AM EDT
--- NOTE | 2017-07-22 10:43 | HHI.FPPN ---
Subjective Remarks No acute events overnight. VS unremarkable but with pulse around 90-100s. Patient denies chest pain, sob. Does want to go home as soon as he can. Does report anxiety that is worse at night. States that when he is active in conversation he does not get a panic attack. It occurs when he is just thinking on his own. He also reports poor sleep while in the hospital and being very tired. Endorses falling asleep during the day. (Pinky Vogt MD R3) Objective Vitals Vital Signs Date Time Temp Pulse Resp B/P (MAP) Pulse Ox O2 Delivery O2 Flow Rate FiO2 07/22/17 07:34 99.1 106 18 144/80 (101) 93 07/22/17 04:00 97.3 71 17 95/64 (74) 93 07/22/17 00:01 97.2 99 18 134/73 (93) 95 07/21/17 21:40 Room Air 21 07/21/17 20:00 97.3 104 18 127/80 (96) 95 07/21/17 16:33 93 21 07/21/17 16:00 98.2 90 18 106/77 (87) 98 07/21/17 12:00 97.6 93 18 118/57 (77) 92 I/O 07/21/17 07/21/17 07/21/17 07/22/17 07/22/17 07/22/17 07:00 15:00 23:00 07:00 15:00 23:00 Intake Total 480 ml 660 ml 360 ml Output Total 900 ml 850 ml 700 ml 1025 ml 100 ml Balance -420 ml -850 ml -40 ml -665 ml -100 ml Intake Oral 480 ml 660 ml 360 ml Output Urine Total 900 ml 850 ml 700 ml 1025 ml 100 ml # Bowel Movements 0 (Pinky Vogt MD R3) Result Diagram: 07/18/17 0303 07/22/17 0457 Objective Remarks GEN: Well-developed, well-nourished patient. No acute distress. Falls asleep mid conversation but easily arousable. CV: Normal rate but with irregular rhythm. Without obvious murmurs LUNGS: Clear to auscultation bilaterally. Normal respiratory effort. No wheezes , rales, rhonchi. GI: Nondistended. EXT: No edema. No calf tenderness. NEURO/PSYCH: Awake, alert. Appropriate insight and judgment. Normal speech (Pinky Vogt MD R3) A/P Assessment and Plan 82-year-old male admitted for dyspnea being treated as multifactorial including atrial fibrillation with RVR and COPD. Cardiology and pulmonology consulted. Plan as below. Discharge Planning Anticipate discharge in 1-2 days once cleared by cardiology anticipate and discharge once renal function improves and there is electrolyte stability. dw Dr. Thomas (Pinky Vogt MD R3) Attending Attestation Patient seen and examined. Again updated patient's daughter on status (patient called her on speaker phone). Discussed case with Dr. Reese (pulmonary). Case reviewed and discussed with Dr. Vogt. Agree with plan of care as discussed with me and documented in the resident note. (Nghia Thomas MD) Problem List: (1) Paroxysmal atrial fibrillation ICD Codes: I48.0 - Paroxysmal atrial fibrillation Status: Acute Plan: Rate improved 07/22/2017 Cardiology consulted, appreciate recommendations Continue metoprolol 50 mg p.o. twice daily, continue to monitor heart rate Continue baby aspirin. Eliquis 2.5 milligrams twice daily per cardiology Considering consulting Dr. Black for consideration of ablation if continued problems with elevated heart rate, if patient is agreeable. At this time, the patient is opposed to the idea of an ablation procedure. (2) CHF (congestive heart failure) ICD Codes: I50.9 - Heart failure, unspecified Status: Acute Plan: Cardiology consulted. -Echo shows ejection fraction 30-40%. -Lasix resumed due to improving renal function. Changed to oral Lasix 40mg daily -HELD spironolactone 12.5 mg daily due to hypokalemia and renal insufficiency, can consider resuming as outpatient. -hold off on EZ-I, ARB, and Entresto due to renal insufficiency. (3) Acute kidney failure ICD Codes: N17.9 - Acute kidney failure, unspecified Status: Acute Plan: Acute on chronic kidney disease, slightly improved but now with elevated potassium -repeat BMP for close monitoring Nephrology consulted, appreciate recommendations Avoid nephrotoxic agents Lasix resumed 07/22/2017 (4) COPD (chronic obstructive pulmonary disease) ICD Codes: J44.9 - Chronic obstructive pulmonary disease, unspecified Status: Chronic Plan: Pulmonology consulted Continue oxygen for sats less than 92 Pulmonary function tests per pulmonology recommendations continue duonebs per pulm Azithromycin 500 mg 4 days given, Stopped 07/21/17 Solu-Medrol 40 mg IV every 12 hours 3 days, tapered to 40mg IV once daily x2 days. Last does 07/22/2017 (5) Anxiety ICD Codes: F41.9 - Anxiety disorder, unspecified Plan: Suspect patient may have underlying anxiety. Pt with panic attack like symptoms at night. Likely worsened by poor sleep in the hospital. -consider adding a small dose of xanax to help with anxiety PRN while in the hospital (6) Diabetes ICD Codes: E11.9 - Type 2 diabetes mellitus without complications Status: Chronic Plan: Metformin currently on hold We will expect a increase in glucose given steroid administration inpatient May need to consider other options for outpatient diabetes management Currently on sliding scale insulin Consider long-acting insulin while inpatient if sugars consistently run high after discontinuation of steroids on 07/22/2017 (7) FEN/PPX Status: Acute Plan: Fluids: tolerating PO Electrolytes: monitor and replace prn Nutrition: heart healthy diet PPX: eliquis 2.5 mg bid (Pinky Vogt MD R3) Problem Qualifiers (1) CHF (congestive heart failure): Qualified Codes: I50.23 - Acute on chronic systolic (congestive) heart failure (2) Acute kidney failure: Qualified Codes: N17.9 - Acute kidney failure, unspecified (3) COPD (chronic obstructive pulmonary disease): Qualified Codes: J44.9 - Chronic obstructive pulmonary disease, unspecified (4) Diabetes: Pinky Vogt MD R3 Jul 22, 2017 10:43 Nghia Thomas MD Jul 23, 2017 11:06
[2017-07-22] MEDS: FUROSEMIDE 40 MG TAB PO SCH (11:45)
--- NOTE | 2017-07-22 12:14 | HHI.PR ---
Subjective Remarks No new complaints and Off o2 Off EZ and entresto Leg edema is less Objective Vital Signs Date Time Temp Pulse Resp B/P (MAP) Pulse Ox O2 Delivery O2 Flow Rate FiO2 07/22/17 07:34 99.1 106 18 144/80 (101) 93 07/22/17 04:00 97.3 71 17 95/64 (74) 93 07/22/17 00:01 97.2 99 18 134/73 (93) 95 07/21/17 21:40 Room Air 21 07/21/17 20:00 97.3 104 18 127/80 (96) 95 07/21/17 16:33 93 21 07/21/17 16:00 98.2 90 18 106/77 (87) 98 I/O 07/21/17 07/21/17 07/21/17 07/22/17 07/22/17 07/22/17 07:00 15:00 23:00 07:00 15:00 23:00 Intake Total 480 ml 660 ml 360 ml Output Total 900 ml 850 ml 700 ml 1025 ml 100 ml Balance -420 ml -850 ml -40 ml -665 ml -100 ml Intake Oral 480 ml 660 ml 360 ml Output Urine Total 900 ml 850 ml 700 ml 1025 ml 100 ml # Bowel Movements 0 Result Diagram: 07/18/17 0303 07/22/17 0457 Objective Remarks GENERAL: This moderately obese, elderly man is alert. HEENT: Head is normocephalic. Pupils are reactive and equal. Throat was clear. NECK: Supple. No bruits. There is mild venous distention . Trachea midline. No lymphadenopathy. CHEST: Equal movements with an increased AP diameter with diffuse wheezes bilaterally with occasional basilar crackles. HEART: Sounds are irregular, S1 and S2 with no murmur. ABDOMEN: Soft, obese, without masses. No organomegaly. EXTREMITIES: Reveal varicosities and 1+ leg edema. Decreased peripheral pulses. NEUROLOGIC: Reflexes are 1+ with no gross motor deficits. SKIN: Dry with a few keratotic skin lesions of the extremities. Assessment and Plan Assessment and Plan IMPRESSION: 1. Pulmonary edema with hypoxemia. 2. Chronic obstructive pulmonary disease with acute exacerbation. 3. Hypertension. 4. Diabetes mellitus type 2. 5. History of degenerative arthritis. Plan : 1. Wean O2 to RA. 2. Continue nebs qid , duoneb 3. Cont lasix 40 mg daily 4. CXR today 5. CBC,BMP in am 6. Hold EZ inhibitors and Aldactone Nicole Wright MD Jul 22, 2017 12:14
--- NOTE | 2017-07-22 14:20 | HHI.NPPN ---
Subjective History of Present Illness Patient is a 82 male with past medical history of diabetes, chronic obstructive pulmonary disease, history of cardiomyopathy, hyperlipidemia, BPH, and sleep apnea. 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 Nephrology is consulted for elevated creatinine of 1.63 today and potassium level of 4.7. Creatinine at 1.07 noted on June 19, 2017. Does not report previous history of kidney disease. Elevated in creatinine could be prerenal related to diuresis or upper respiratory infection. Denies any nausea, vomiting, diarrhea, or any changes in oral intake. Denies NSAID use. Additional Remarks Reports mild shortness of breath and cough. Lasix has been resumed. Creatinine continues to improve at 1.70, Potassium at 5.2 (Chantal Coppola) Review of Systems Respiratory Lungs: SOB (Chantal Coppola) Cardiovascular Cardiac Remarks Denies chest pain (Chantal Coppola) Gastrointestinal GI Remarks Denies abdominal pain (Chantal Coppola) Objective Data Data 07/22/17 07/23/17 19:00 07:00 Output Total 100 ml Balance -100 ml Output Urine Total 100 ml Vital Signs Date Time Temp Pulse Resp B/P (MAP) Pulse Ox O2 Delivery O2 Flow Rate FiO2 07/22/17 12:00 97.1 82 18 128/70 (89) 94 07/22/17 07:34 99.1 106 18 144/80 (101) 93 07/22/17 04:00 97.3 71 17 95/64 (74) 93 07/22/17 00:01 97.2 99 18 134/73 (93) 95 07/21/17 21:40 Room Air 21 07/21/17 20:00 97.3 104 18 127/80 (96) 95 07/21/17 16:33 93 21 07/21/17 16:00 98.2 90 18 106/77 (87) 98 (Chantal Coppola) -: 07/18/17 0303 07/22/17 0457 Imaging Last Impressions Chest X-Ray 07/22/17 0000 Signed Impressions: CONCLUSION: 1. Slight elevation of the left hemidiaphragm. 2. No acute focal pulmonary infiltrate or pulmonary vascular congestion. (Chantal Coppola) Physical Exam General Appearance: Well Developed, Well Nourished (Chantal Coppola) Neck Neck Exam: Neck Supple (Chantal Coppola) Pulmonary Resp Exam: Breath Sounds Equal, Rhonchi (Chantal Coppola) Cardiology CV Exam: Arrhythmia (Chantal Coppola) Gastrointestinal/Abdomen GI Exam: Soft, Bowel Sounds Present (Chantal Coppola) Extremeties Extremities Exam: Moderate Edema (Chantal Coppola) Neurologic Neuro Exam: Alert, Awake, Oriented (Chantal Coppola) Psychiatric Psych Exam: Appropriate Responses (Chantal Coppola) Assessment/Plan Problem List: (1) Acute kidney injury ICD Codes: N17.9 - Acute kidney failure, unspecified Plan: Acute kidney injury with a creatinine of 1.63 on day of consult SYEDA could be prerenal with diuresis Plan Avoid nephrotoxins Creatinine improving at 1.70 Lasix resumed will need to monitor creatinine closely Spirolactone on hold with potassium of 5.2 low potassium diet ordered. Follow the urine out put and BMP. (2) HTN (hypertension) ICD Codes: I10 - Essential (primary) hypertension Status: Chronic Plan: Well controlled will monitor (3) Diabetes ICD Codes: E11.9 - Type 2 diabetes mellitus without complications Status: Chronic Plan: Maintain blood sugars between 140 mg/dl to 180 mg/dl (Chantal Coppola) Problem List: (1) Acute kidney injury ICD Codes: N17.9 - Acute kidney failure, unspecified Plan: Acute kidney injury with a creatinine of 1.63 on day of consult SYEDA could be prerenal with diuresis Plan Avoid nephrotoxins Creatinine improving at 1.70 Lasix resumed will need to monitor creatinine closely Spirolactone on hold with potassium of 5.2 low potassium diet ordered. Follow the urine out put and BMP. Patient seen and examined, agree with above. Creatinine is slowly improving. (2) HTN (hypertension) ICD Codes: I10 - Essential (primary) hypertension Status: Chronic Plan: Well controlled will monitor (3) Diabetes ICD Codes: E11.9 - Type 2 diabetes mellitus without complications Status: Chronic Plan: Maintain blood sugars between 140 mg/dl to 180 mg/dl (Nevin Olson MD) Problem Qualifiers (1) HTN (hypertension): Qualified Codes: I10 - Essential (primary) hypertension (2) Diabetes: Chantal Coppola Jul 22, 2017 14:20 Nevin Olson MD Jul 24, 2017 00:51
[2017-07-22] MEDS ORDERED: ALPRAZolam 0.25 MG TAB PO PRN (21:00)
[2017-07-22] MEDS: MELATONIN 5 MG TAB PO SCH (21:01)
[2017-07-22 21:36] LABS: BICARBONATE 23.9 MEQ/L (21.0-32.0); CALCIUM 8.7 MG/DL (8.5-10.1); CREATININE 1.85 MG/DL (0.60-1.30)
[2017-07-23] VITALS (8 sets, daily range): BP systolic 96–118; BP diastolic 58–75; PULSE 55–103; RESP 18–19; TEMP 97.1–98.6; O2SAT 94–100
[2017-07-23] MEDS: RESP: IPRATROPIUM 0.5 MG/2.5 ML NEB NEB SCH ×2 (03:15→10:00)
[2017-07-23] MEDS: ASPIRIN 81 MG CHEW TAB CHEW SCH (08:00)
[2017-07-23] MEDS: INSULIN ASPART SUPPLEMENTAL SCALE SQ SCH ×2 (08:00→11:32)
[2017-07-23] MEDS: APIXABAN 5 MG TABLET PO SCH (08:00)
[2017-07-23] MEDS: PRAVASTATIN SOD 40 MG TAB PO SCH (08:00)
[2017-07-23] MEDS: METOPROLOL TARTRATE 50 MG TAB PO SCH (08:01)
[2017-07-23] MEDS: FUROSEMIDE 40 MG TAB PO SCH (08:01)
[2017-07-23 09:20] LABS: BICARBONATE 27.3 MEQ/L (21.0-32.0); CALCIUM 8.9 MG/DL (8.5-10.1); CREATININE 1.58 MG/DL (0.60-1.30)
--- NOTE | 2017-07-23 10:16 | HHI.NPPN ---
Subjective History of Present Illness Patient is a 82 male with past medical history of diabetes, chronic obstructive pulmonary disease, history of cardiomyopathy, hyperlipidemia, BPH, and sleep apnea. 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 Nephrology is consulted for elevated creatinine of 1.63 today and potassium level of 4.7. Creatinine at 1.07 noted on June 19, 2017. Does not report previous history of kidney disease. Elevated in creatinine could be prerenal related to diuresis or upper respiratory infection. Denies any nausea, vomiting, diarrhea, or any changes in oral intake. Denies NSAID use. Additional Remarks Reports mild shortness of breath. Reports he had a bad night last night and was confused. (Chantal Coppola) Review of Systems Respiratory Lungs: SOB (Chantal Coppola) Cardiovascular Cardiac Remarks Denies chest pain (Chantal Coppola) Gastrointestinal GI Remarks Denies abdominal pain (Chantal Coppola) Objective Data Data Vital Signs Date Time Temp Pulse Resp B/P (MAP) Pulse Ox O2 Delivery O2 Flow Rate FiO2 07/23/17 08:00 97.2 76 18 96/64 (75) 95 07/23/17 04:19 103 07/23/17 04:00 97.1 58 18 107/58 (74) 100 07/23/17 03:18 95 Nasal Cannula 2.00 07/23/17 00:31 93 07/23/17 00:01 98.6 96 19 118/70 (86) 94 07/22/17 21:02 Nasal Cannula 2.00 07/22/17 20:00 97.3 85 18 130/74 (92) 93 07/22/17 19:53 110 07/22/17 16:00 97.0 52 20 121/66 (84) 94 07/22/17 12:00 97.1 82 18 128/70 (89) 94 (Chatnal Coppola) -: 07/23/17 0807 Physical Exam General Appearance: Well Developed, Well Nourished (Chantal Coppola) Neck Neck Exam: Neck Supple (Chantal Coppola) Pulmonary Resp Exam: Breath Sounds Equal, Rhonchi (Chantal Coppola) Cardiology CV Exam: Arrhythmia (Chantal Coppola) Gastrointestinal/Abdomen GI Exam: Soft, Bowel Sounds Present (Chantal Coppola) Extremeties Extremities Exam: Moderate Edema (Chantal Coppola) Neurologic Neuro Exam: Alert, Awake, Oriented (Chantal Coppola) Psychiatric Psych Exam: Appropriate Responses (Chantal Coppola) Assessment/Plan Problem List: (1) Acute kidney injury ICD Codes: N17.9 - Acute kidney failure, unspecified Plan: Acute kidney injury with a creatinine of 1.63 on day of consult SYEDA could be prerenal with diuresis Plan Avoid nephrotoxins Creatinine improving at 1.58 Lasix resumed will need to monitor creatinine closely Hyperkalemia resolved continue to hold spirolactone and low potassium diet. Follow the urine out put and BMP. (2) HTN (hypertension) ICD Codes: I10 - Essential (primary) hypertension Status: Chronic Plan: Well controlled will monitor (3) Diabetes ICD Codes: E11.9 - Type 2 diabetes mellitus without complications Status: Chronic Plan: Maintain blood sugars between 140 mg/dl to 180 mg/dl (Chantal Coppola) Problem List: (1) Acute kidney injury ICD Codes: N17.9 - Acute kidney failure, unspecified Plan: Acute kidney injury with a creatinine of 1.63 on day of consult SYEDA could be prerenal with diuresis Plan Avoid nephrotoxins Creatinine improving at 1.58 Lasix resumed will need to monitor creatinine closely Hyperkalemia resolved continue to hold spirolactone and low potassium diet. Follow the urine out put and BMP. Patient seen and examined, agree with above. Creatinine continue to improve. (2) HTN (hypertension) ICD Codes: I10 - Essential (primary) hypertension Status: Chronic Plan: Well controlled will monitor (3) Diabetes ICD Codes: E11.9 - Type 2 diabetes mellitus without complications Status: Chronic Plan: Maintain blood sugars between 140 mg/dl to 180 mg/dl (Nevin Olson MD) Problem Qualifiers (1) HTN (hypertension): Qualified Codes: I10 - Essential (primary) hypertension (2) Diabetes: Chantal Coppola Jul 23, 2017 10:15 Nevin Olson MD Jul 24, 2017 00:53
--- NOTE | 2017-07-23 12:05 | HHI.FPPN ---
Subjective Remarks Patient seen and examined this morning. Temperature 97.2, pulse 76, respiratory rate 18, blood pressure 96/64, pulse ox 95 on room air. Patient was sitting up in bed drowsy. Was given Xanax overnight and this made the patient confused and he has been drowsy since. Will stop the Xanax at this time. Patient's creatinine level is improving since being in the hospital and at this time his potassium has returned to normal level. He is medically stable to be discharged back to the assisted living facility at [facility] and will be followed closely by his PCP Dr. Thomas. (Terry Gooden MD R3) Objective Vitals Vital Signs Date Time Temp Pulse Resp B/P (MAP) Pulse Ox O2 Delivery O2 Flow Rate FiO2 07/23/17 10:51 98 21 07/23/17 08:00 97.2 76 18 96/64 (75) 95 07/23/17 04:19 103 07/23/17 04:00 97.1 58 18 107/58 (74) 100 07/23/17 03:18 95 Nasal Cannula 2.00 07/23/17 00:31 93 07/23/17 00:01 98.6 96 19 118/70 (86) 94 07/22/17 21:02 Nasal Cannula 2.00 07/22/17 20:00 97.3 85 18 130/74 (92) 93 07/22/17 19:53 110 07/22/17 16:00 97.0 52 20 121/66 (84) 94 07/22/17 12:00 97.1 82 18 128/70 (89) 94 I/O 07/22/17 07/22/17 07/22/17 07/23/17 07/23/17 07/23/17 07:00 15:00 23:00 07:00 15:00 23:00 Intake Total 360 ml 600 ml 480 ml Output Total 1025 ml 800 ml 550 ml 200 ml Balance -665 ml -200 ml -70 ml -200 ml Intake Oral 360 ml 600 ml 480 ml Output Urine Total 1025 ml 800 ml 550 ml 200 ml # Voids 4 (Terry Gooden MD R3) Result Diagram: 07/23/17 0807 Imaging Last Impressions Chest X-Ray 07/22/17 0000 Signed Impressions: CONCLUSION: 1. Slight elevation of the left hemidiaphragm. 2. No acute focal pulmonary infiltrate or pulmonary vascular congestion. Objective Remarks GEN: Well-developed, well-nourished patient. No acute distress. Falls asleep mid conversation but easily arousable. CV: Normal rate but with irregular rhythm. Without obvious murmurs LUNGS: Clear to auscultation bilaterally. Normal respiratory effort. No wheezes , rales, rhonchi. GI: Nondistended. EXT: No edema. No calf tenderness. NEURO/PSYCH: Awake, alert. Appropriate insight and judgment. Normal speech Medications and IVs Current Medications Medications (Trade) Dose Ordered Sig/Vladimir Route Start Time Stop Time Status Last Admin (NS Flush) 2 ml UNSCH PRN IVF 07/16/17 10:30 07/18/17 22:44 (Aspirin Chew) 81 mg DAILY CHEW 07/17/17 09:00 07/23/17 08:00 (Pravachol) 40 mg DAILY PO 07/17/17 09:00 07/23/17 08:00 (NovoLOG SUPPLEMENTAL SCALE) 1 ACHS SLIDING SCALE SQ 07/16/17 17:00 07/23/17 11:32 (Glucagon Inj) 1 mg UNSCH PRN OTHER 07/16/17 16:00 (D50w (Vial) Inj) 50 ml UNSCH PRN IV PUSH 07/16/17 16:00 (Atrovent Neb) 0.5 mg Q6HR NEB NEB 07/16/17 22:00 07/23/17 03:15 (Aldactone) 12.5 mg DAILY PO 07/18/17 09:00 Future Hold 07/22/17 07:39 (Pill Splitter) 1 ea UNSCH PRN OTHER 07/17/17 18:00 (Melatonin) 10 mg HS PO 07/19/17 21:00 07/22/17 21:01 (Lopressor) 50 mg Q12HR PO 07/19/17 09:30 07/22/17 21:02 (Lasix) 20 mg DAILY PO 07/20/17 09:00 Future Hold 07/20/17 08:02 (Eliquis) 2.5 mg BID PO 07/20/17 21:00 07/23/17 08:00 (Lasix) 40 mg DAILY PO 07/22/17 09:00 07/23/17 08:01 (Terry Gooden MD R3) A/P Assessment and Plan 82-year-old male admitted for dyspnea being treated as multifactorial including atrial fibrillation with RVR and COPD. Cardiology and pulmonology consulted. Plan as below. Discharge Planning Discharge home today, 07/23/17 with close monitoring at his assisted living facility. maria r Thoams (Terry Gooden MD R3) Attending Attestation Case reviewed and discussed with Dr. Gooden. Agree with plan of care as discussed with me and documented in the resident note. (Nghia Thomas MD) Problem List: (1) Paroxysmal atrial fibrillation ICD Codes: I48.0 - Paroxysmal atrial fibrillation Status: Acute Plan: Heart rate stable at 76. Patient is refusing ablation at this time. Cardiology consulted, appreciate recommendations Continue metoprolol 50 mg p.o. twice daily, continue to monitor heart rate Continue baby aspirin. Eliquis 2.5 milligrams twice daily per cardiology Considering consulting Dr. Black for consideration of ablation if continued problems with elevated heart rate, if patient is agreeable. At this time, the patient is opposed to the idea of an ablation procedure. (2) CHF (congestive heart failure) ICD Codes: I50.9 - Heart failure, unspecified Status: Acute Plan: Cardiology consulted. -Echo shows ejection fraction 30-40%. -Lasix resumed due to improving renal function. Changed to oral Lasix 40mg daily -HELD spironolactone 12.5 mg daily due to hypokalemia and renal insufficiency, can consider resuming as outpatient. -hold off on EZ-I, ARB, and Entresto due to renal insufficiency. (3) Acute kidney failure ICD Codes: N17.9 - Acute kidney failure, unspecified Status: Acute Plan: Acute on chronic kidney disease, slightly improved with creatinine at 1.58 and potassium at a normal level 4.5 -repeat BMP for close monitoring as an outpatient Nephrology consulted, appreciate recommendations, cleared for discharge Avoid nephrotoxic agents We will discharge on Lasix 20 mg (4) COPD (chronic obstructive pulmonary disease) ICD Codes: J44.9 - Chronic obstructive pulmonary disease, unspecified Status: Chronic Plan: Pulmonology consulted Continue oxygen for sats less than 92 Pulmonary function tests per pulmonology recommendations continue duonebs per pulm Azithromycin 500 mg 4 days given, Stopped 07/21/17 Solu-Medrol 40 mg IV every 12 hours 3 days, tapered to 40mg IV once daily x2 days. Last does 07/22/2017 (5) Anxiety ICD Codes: F41.9 - Anxiety disorder, unspecified Plan: Suspect patient may have underlying anxiety. Pt with panic attack like symptoms at night. Likely worsened by poor sleep in the hospital. -Patient did not tolerate the Xanax well as this made him extra drowsy and confused. Will discontinue the Xanax at this time. (6) Diabetes ICD Codes: E11.9 - Type 2 diabetes mellitus without complications Status: Chronic Plan: Metformin currently on hold We will expect a increase in glucose given steroid administration inpatient May need to consider other options for outpatient diabetes management Currently on sliding scale insulin Consider long-acting insulin while inpatient if sugars consistently run high after discontinuation of steroids on 07/22/2017 (7) FEN/PPX Status: Acute Plan: Fluids: tolerating PO Electrolytes: monitor and replace prn Nutrition: heart healthy diet PPX: eliquis 2.5 mg bid (Terry Gooden MD R3) Problem Qualifiers (1) CHF (congestive heart failure): Qualified Codes: I50.23 - Acute on chronic systolic (congestive) heart failure (2) Acute kidney failure: Qualified Codes: N17.9 - Acute kidney failure, unspecified (3) COPD (chronic obstructive pulmonary disease): Qualified Codes: J44.9 - Chronic obstructive pulmonary disease, unspecified (4) Diabetes: Terry Gooden MD R3 Jul 23, 2017 12:05 Nghia Thomas MD Jul 24, 2017 11:27
[2017-07-23] MEDS ORDERED: IPRASOL INH (12:09)
[2017-07-23] MEDS ORDERED: FURO20TA PO (12:09)
[2017-07-23] MEDS ORDERED: METO-309 PO (12:09)
--- NOTE | 2017-07-23 12:11 | HHI.DCPOC ---
Discharge Care Plan Diagnosis: (1) Hyperkalemia (2) Acute kidney failure (3) COPD (chronic obstructive pulmonary disease) (4) Atrial fibrillation (5) Paroxysmal atrial fibrillation Goals to Promote Your Health * To prevent worsening of your condition and complications * To maintain your health at the optimal level Directions to Meet Your Goals Take your medications as prescribed Follow your dietary instruction Follow activity as directed Keep your appointments as scheduled Take your immunizations and boosters as scheduled If your symptoms worsen call your PCP, if no PCP go to Urgent Care Center or Emergency Room Smoking is Dangerous to Your Health. Avoid second hand smoke Call the 24-hour hour crisis hotline for domestic abuse at Terry Gooden MD R3 Jul 23, 2017 12:10
--- NOTE | 2017-07-23 12:11 | HHI.DS ---
Discharge Summary Admission Date Jul 18, 2017 at 08:42 Discharge Date: Jul 23, 2017 Admitting Diagnosis COPD exacerbation/mild pulmonary edema (1) Paroxysmal atrial fibrillation Diagnosis: Principal Plan: Heart rate stable at 76. Patient is refusing ablation at this time. Cardiology consulted, appreciate recommendations Continue metoprolol 50 mg p.o. twice daily, continue to monitor heart rate Continue baby aspirin. Eliquis 2.5 milligrams twice daily per cardiology Considering consulting Dr. lBack for consideration of ablation if continued problems with elevated heart rate, if patient is agreeable. At this time, the patient is opposed to the idea of an ablation procedure. ICD Codes: I48.0 - Paroxysmal atrial fibrillation Status: Acute (2) CHF (congestive heart failure) Diagnosis: Secondary Plan: Cardiology consulted. -Echo shows ejection fraction 30-40%. -Lasix resumed due to improving renal function. Changed to oral Lasix 40mg daily -HELD spironolactone 12.5 mg daily due to hypokalemia and renal insufficiency, can consider resuming as outpatient. -hold off on EZ-I, ARB, and Entresto due to renal insufficiency. ICD Codes: I50.9 - Heart failure, unspecified Status: Acute (3) Acute kidney failure Diagnosis: Principal Plan: Acute on chronic kidney disease, slightly improved with creatinine at 1.58 and potassium at a normal level 4.5 -repeat BMP for close monitoring as an outpatient Nephrology consulted, appreciate recommendations, cleared for discharge Avoid nephrotoxic agents We will discharge on Lasix 20 mg ICD Codes: N17.9 - Acute kidney failure, unspecified Status: Acute (4) COPD (chronic obstructive pulmonary disease) Diagnosis: Secondary Plan: Pulmonology consulted Continue oxygen for sats less than 92 Pulmonary function tests per pulmonology recommendations continue duonebs per pulm Azithromycin 500 mg 4 days given, Stopped 07/21/17 Solu-Medrol 40 mg IV every 12 hours 3 days, tapered to 40mg IV once daily x2 days. Last does 07/22/2017 ICD Codes: J44.9 - Chronic obstructive pulmonary disease, unspecified Status: Chronic (5) Anxiety Diagnosis: Secondary Plan: Suspect patient may have underlying anxiety. Pt with panic attack like symptoms at night. Likely worsened by poor sleep in the hospital. -Patient did not tolerate the Xanax well as this made him extra drowsy and confused. Will discontinue the Xanax at this time. ICD Codes: F41.9 - Anxiety disorder, unspecified (6) Diabetes Diagnosis: Secondary Plan: Metformin currently on hold We will expect a increase in glucose given steroid administration inpatient May need to consider other options for outpatient diabetes management Currently on sliding scale insulin Consider long-acting insulin while inpatient if sugars consistently run high after discontinuation of steroids on 07/22/2017 ICD Codes: E11.9 - Type 2 diabetes mellitus without complications Status: Chronic (7) FEN/PPX Diagnosis: Secondary Plan: Fluids: tolerating PO Electrolytes: monitor and replace prn Nutrition: heart healthy diet PPX: eliquis 2.5 mg bid Status: Acute CBC/BMP: 07/23/17 0807 Significant Findings Laboratory Tests Test 07/21/17 08:25 07/22/17 04:57 07/22/17 20:37 07/23/17 08:07 Blood Urea Nitrogen 75 MG/DL (7-18) 68 MG/DL (7-18) 70 MG/DL (7-18) 64 MG/DL (7-18) Creatinine 1.89 MG/DL (0.60-1.30) 1.70 MG/DL (0.60-1.30) 1.85 MG/DL (0.60-1.30) 1.58 MG/DL (0.60-1.30) Random Glucose 219 MG/DL (74-106) 144 MG/DL (74-106) 261 MG/DL (74-106) 141 MG/DL (74-106) Sodium Level 133 MEQ/L (136-145) 135 MEQ/L (136-145) 134 MEQ/L (136-145) Estimat Glomerular Filtration Rate 34 ML/MIN (>89) 39 ML/MIN (>89) 35 ML/MIN (>89) 42 ML/MIN (>89) Potassium Level 5.2 MEQ/L (3.5-5.1) 5.2 MEQ/L (3.5-5.1) PE at Discharge GEN: Well-developed, well-nourished patient. No acute distress. Falls asleep mid conversation but easily arousable. CV: Normal rate but with irregular rhythm. Without obvious murmurs LUNGS: Clear to auscultation bilaterally. Normal respiratory effort. No wheezes , rales, rhonchi. GI: Nondistended. EXT: No edema. No calf tenderness. NEURO/PSYCH: Awake, alert. Appropriate insight and judgment. Normal speech Hospital Course This is an 82-year-old male with extensive past medical history. He is admitted for atrial fibrillation with RVR and COPD exacerbation. He was evaluated by both cardiology and pulmonology during his hospitalization. He is also found to have acute kidney injury during his hospitalization and required evaluation by nephrology. He slowly progressively improved with his COPD exacerbation. However for his atrial fibrillation rate control became very difficult for this patient during his hospitalization. Currently he is stable however the recommendations at this time is that he receive ablation, but the patient is currently refusing this treatment plan. 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 He has been having chronic fatigue for several months now which is likely due to his chronic illnesses worsened by the A. fib and COPD. There is hospitalization he had some difficulty with worsening kidney injury multiple medications were stopped at that time. Unfortunately he started to develop some hyperkalemia as well. With rehydration and slowly restarting his Lasix both the kidney injury as well as the hyperkalemia was resolved by time he was discharged. Pt Condition on Discharge: Stable Discharge Disposition: Discharge Home Discharge Instructions DIET: Follow Instructions for: Heart Healthy Diet Activities you can perform: Regular-No Restrictions Follow up Referrals: Cardiology - 1 Week with Lane Crawford MD PCP Follow-up - 2-3 Days with Nghia Thomas MD New Orders: BASIC METABOLIC PROF - 2-3 Days New Medications: Ipratropium-Albuterol Neb (Duoneb) 0.5-2.5 Mg/3 Ml Neb 1 NEBULE INH Q6HR NEB for Breathing Treatment, #120 NEBULE 0 Refills Furosemide (Furosemide) 20 Mg Tab 20 MG PO DAILY, #30 TAB Metoprolol Tartrate (Lopressor) 50 Mg Tab 50 MG PO Q12HR, #30 TAB Continued Medications: Albuterol Neb (Albuterol Neb) 1.25 Mg/3 Ml Neb 1.25 MG NEB Q6HR NEB PRN for SOB/WHEEZING, #180 NEBULE Apixaban (Eliquis) 5 Mg Tab 5 MG PO BID for Blood Clot Prevention, #60 TAB Aspirin (Aspirin) 81 Mg Chew 81 MG CHEW DAILY, TAB 0 Refills Melatonin (Melatonin) 10 Mg-1 Mg Tab 15 MG PO HS PRN for SLEEP, TAB 0 Refills Metformin (Metformin) 500 Mg Tab 500 MG PO BIDPC for Blood Sugar Management, #60 TAB 0 Refills Nebulizer (Nebulizer) 1 Mis Mis EA .XX DIRECTED for Breathing Treatment, #1 0 Refills Pravastatin (Pravachol) 40 Mg Tab 40 MG PO DAILY for Cholesterol Management, #30 TAB Sennosides-Docusate Sodium (Gnp Senna Plus 8.6-50 mg) 8.6 Mg-50 Mg Tab 1 TAB PO BID for Bowel Management, #60 TAB Discontinued Medications: Melatonin (Melatonin) 5 Mg Tab 10 MG PO HS PRN for sleep, #60 TAB Metoprolol Tartrate (Metoprolol Tartrate) 25 Mg Tab 12.5 MG PO BID, #60 TAB 0 Refills Spironolactone (Spironolactone) 25 Mg Tab 12.5 MG PO DAILY for Blood Pressure Management, #30 TAB 0 Refills Terry Gooden MD R3 Jul 23, 2017 12:11
--- NOTE | 2017-07-24 11:46 | AMB.FTFV ---
Face to Face Verification Diagnosis: (1) CHF (congestive heart failure) (2) COPD (chronic obstructive pulmonary disease) (3) Atrial fibrillation (4) Diabetes (5) KALYAN (obstructive sleep apnea) (6) Acute kidney injury Physical Therapy Order: Evaluate and Treat Home Health Nursing Order: Medical education Signs/symptoms of disease process Diabetic education CHF education Medication education-adverse effect Nursing assessment with vital signs I have seen patient John Smith on 07/24/17. My clinical findings support the need for the requested home health care services because: Patient has SOB Deconditioned w/ increased weakness I certify that my clinical findings support that this patient is homebound because: Hx COPD- exertion dyspnea/weakness Unsteady gait/balance Nghia Thomas MD Jul 24, 2017 11:43
== END 2017-07-23 14:44 | disposition home or self-care (01) | DRG 190 ==
LOC: NEPC 10:09 → NEDA 14:55 → NEPFCDU 16:50 → OBSVTOIN 07-18 08:42 → N06B 07-19 18:08
PROVIDERS: ADMIT Family Medicine; ATTEND Family Medicine
DX: J44.1 Chronic obstructive pulmonary disease with (acute) exacerbation (principal); I50.23 Acute on chronic systolic (congestive) heart failure; N17.9 Acute kidney failure, unspecified; I13.0 Hypertensive heart and chronic kidney disease with heart failure and stage 1 through stage 4 chronic kidney disease, or unspecified chronic kidney disease; I42.9 Cardiomyopathy, unspecified; J98.11 Atelectasis; I48.0 Paroxysmal atrial fibrillation; E87.5 Hyperkalemia; N18.9 Chronic kidney disease, unspecified; E11.65 Type 2 diabetes mellitus with hyperglycemia; E11.22 Type 2 diabetes mellitus with diabetic chronic kidney disease; N40.0 Benign prostatic hyperplasia without lower urinary tract symptoms; H35.30 Unspecified macular degeneration; I25.10 Atherosclerotic heart disease of native coronary artery without angina pectoris; M19.019 Primary osteoarthritis, unspecified shoulder; R09.02 Hypoxemia; G47.30 Sleep apnea, unspecified; F41.9 Anxiety disorder, unspecified; R53.82 Chronic fatigue, unspecified; E78.5 Hyperlipidemia, unspecified; E87.6 Hypokalemia; Z87.891 Personal history of nicotine dependence; Z88.8 Allergy status to other drugs, medicaments and biological substances; Z91.030 Bee allergy status; Z79.82 Long term (current) use of aspirin; Z79.01 Long term (current) use of anticoagulants; Z85.828 Personal history of other malignant neoplasm of skin; Z86.73 Personal history of transient ischemic attack (TIA), and cerebral infarction without residual deficits
CPT/HCPCS: 36600; 71045; 71046; 80048; 80053; 81001; 82570; 82805; 82948; 83880; 83935; 84484; 84540; 85025; 93005; 93306; 94640; 94664; J1815; J1940; J2920; J2930; J7644